=== PATIENT | female | born 1940 | race Caucasian/White ===

== ENCOUNTER → 2023-09-06 | Emergency (ER) | payer OTHER ==
[~2023-09-06] MED LIST: ACETAMINOPHEN 325 MG TABLET ONE; BUPIVACAINE 0.5% PF 10 ML VIAL ONE; IBUPROFEN 400 MG TAB ONE; LIDOCAINE 2% MPF 5 ML VIAL ONE
--- OUTSIDE RECORDS SUMMARY | 2023-09-06 19:06 | XMS REPORT | Continuity of Care Document ---
Author Name Unknown Address [address] [place] [address] [facility] Address [address] [place] [address] Care Team Providers Care Health And Safety Trainer Name Role Phone Evin Robison MD Primary Care Physician ELSY SINGLETARY Attending Clinician Unavailable ONEIDA CALI Attending Clinician Unavailable NATA LLOYD Attending Clinician Unav ailable EVIN ROBISON Attending Clinician Unavailable [email or web address] Attending Clinician Unavaila JANES Alvarez Attending Clinician Unavailable FLOOR, LAB HEM-ONC 2ND Attending Clinician Unava ilable MD TRUNG Attending Clinician Unavailab le INFUSION, TRACI Attending Clinician Unavailable LAB39 Attending Clinician Unavailable IVT, MC Attending Clinician Unavailable LE, LAWSON Attending Clinician Unavailable NICA RUIZ Attending Clinician Unavailable ANT VANG Attending Clinician Unavail able CHINA JONES Attending Clinician Unavailab GILDARDO Barker Attending Clinician Unavailab XAVIER Franz Attending Clinician Unavailable LAB90 Attending Clinician Unavailable 1, [facility] Attending Clinic chang Unavailable DEYVI COTE Attending Clinician Unavailable EMIL EASLEY Attending Clinician Unavailable JHONATHAN-JETT GUZMAN Attending Clinician Unavailable NICOLE ESCOBAR Attending Clinician UnavailCRISTOBAL Alvarez Attending Clinician Unavailabl e Only, Ang Db Test Attending Clinician UnavailSunil Ortiz Attending Clinician [phone] SUNIL CONWAY Attending Clinician Unavailable Doctor Unassigned, [place] Attending Clinician U pradeep Rocael VIGOUREUX PRINTER-C, Deyvi Attending Clinician [phone] Nan Hunter DPM Attending Clinician [phone] China Jones MD Attending Clinician [phone] COVID-MODERNA VACC, [facility] Attending Clinic chang Unavailable Evin Robison MD Attending Clinician [phone] LAB47 Attending Clinician Unavailable Michael Wren MD Attending Clinician [phone] ALFRED YUNG Attending Clinician Unavailable MARKO CASTILLO Attending Clinician Unavailable Dimple Harry PA-C Attending Clinician [phone] [id number] Attending Clinician Unavailable TESTING, PL COVID Attending Clinician Unavailabl e VF2 Attending Clinician Unavailable Elsy Singletary MD Attending Clinician [phone] COVID-MODERNA BOOSTER, [facility] Attending Clin ician Unavailable [email or web address] Admitting Clinician Unavaila ble Payers Payer Name Policy Type Policy Number Effective Date Expirati on Date Source [facility] 7 [id number] 2019 00:00:00 MARGO AMBRIZ [employer] - [place] [employer] (MEDICARE REPLACEMENT HMO) [id number] Problems Condition Name Condition Details Condition Category Status Onset Date Resolution Date Last Treatment Date Treating Clinician Comments Source Acute pain of left shoulder Acute pain of left shoulder Disease Active 2022-08 00:00: 00 Margo Royold - Externa l Left hip pain Left hip pain Disease Active 2022-08 00:00: 00 Margo Ambriz - Externa l Seasonal allergic rhinitis due to pollen Seasonal allergic rhinitis due to pollen Disease Active 2022-08 0-13 00:00: 00 Margo Ambriz - Externa l Polycythem ia Polycythem ia Disease Active 9-06 00:00: 00 Margo Ambriz - Externa l Well adult exam Well adult exam Disease Active 2023-0 8-24 00:00: 00 Margo Seybold - Externa l 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 Due to being on MTX; will monitor for infection s and update vaccinesL ast Assessmen t & Plan: Formattin g of this note might be different from the original. Unchanged Margo Seybold - Externa l Risk for falls Risk for falls Disease Active 03-07 00:00: 00 Margo Seybold - Externa l Polycythem ia Polycythem ia Disease Active 2018-08 00:00: 00 Margo Vasquezybold - Externa l Hx of squamous cell carcinoma Hx of squamous cell carcinoma Disease Active 09-29 00:00: 00 Overview: Formattin g of this note might be different from the original. R dorsal hand Margo Seybold - Externa l Sensory neuropathy Sensory neuropathy Disease Active 2015-08 0- 00:00: 00 Margo Royold Insomnia Insomnia Disease Active 05-04 00:00: 00 Margo Seybold - Externa l Chronic hyperventi lation syndrome Chronic hyperventi lation syndrome Disease Active 09-15 00:00: 00 Margo Royold Chronic rhinitis Chronic rhinitis Disease Active 05-04 00:00: 00 Margo Seybold - Externa l YVONNE (obstructi ve sleep apnea) - Very abn ON pulse Ox with desat index 40 O2 40% 02/24/14 YVONNE (obstructi ve sleep apnea) - Very abn ON pulse Ox with desat index 40 O2 40% 02/24/14 Disease Active 7 00:00: 00 Margo Seybold - Externa l Conjunctiv itis of both eyes Conjunctiv itis of both eyes Disease Active 1- 00:00: 00 Margo Royold Hx pulmonary embolism Hx pulmonary embolism Disease Active 03-27 00:00: 00 Margo Seybold - Externa l Pseudophak ia of both eyes Pseudophak ia of both eyes Disease Active 03-21 00:00: 00 Margo Ambriz - Externa l Thoracic back pain Thoracic back pain Disease Active 03-21 00:00: 00 Margo Ambriz Hx of squamous cell carcinoma Hx of squamous cell carcinoma Disease Active 09-29 00:00: 00 Overview: Formattin g of this note might be different from the original. R dorsal hand Margo Ambriz - Externa l Bursitis, trochanter ic Bursitis, trochanter ic Disease Active 2008-08 00:00: 00 Margo Ambriz Osteoarthr osis, unspecifie d whether generalize d or localized, unspecifie d site Osteoarthr osis, unspecifie d whether generalize d or localized, unspecifie d site Disease Active 08-31 00:00: 00 Overview: Formattin g of this note might be different from the original. ICD-10 Margo Royold - Externa l Hypothyroi dism Hypothyroi dism Disease Active 2007-08 00:00: 00 Overview: Formattin g of this note might be different from the original. On levothyro xine and annual monitorin gLast Assessmen t & Plan: Formattin g of this note might be different from the original. 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 On a ststin and low fat dietLast Assessmen t & Plan: Formattin g of this note might be different from the original. Controlle d Margo Royold - Externa l Essential hypertensi on, benign Essential hypertensi on, benign Disease Active 2007-08 00:00: 00 Overview: Formattin g of this note might be different from the original. Low salt diet and BBLast Assessmen t & Plan: Formattin g of this note might be different from the original. Controlle d Margo Vasquezybold - Externa l Positive PPD Positive PPD Disease Active Overview: Formattin g of this note might be different from the original. 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 [facility] Margo Marreora boni Prurigo nodularis Prurigo nodularis Disease Active Margo Royold - Externa l Allergies, Adverse Reactions, Alerts Allergy Name Allergy Type Status Severity Reaction(s) Onset Date Inactive Date Treating Clinician Comments Source NO KNOWN ALLERGIE S Drug Class Active [facility] Social History Social Habit Start Date Stop Date Quantity Comments Source Gender identity 2020-05-17 15:52:18 Identifies as female gender (finding) Margo Royold - External History SDOH Alcohol Frequency Margo peter - External History SDOH Alcohol Std Drinks Margo Vasquez ybold - External History SDOH Alcohol Binge Margo Ambriz - External Sexual orientation Estevan Royold - External Alcohol intake 2023-08-23 00:00:00 2023-08-23 00:00:00 2.86 /d Margo Ambriz - External History of Social function 2023-05-13 00:00:00 2023-05-13 00:00:00 Margo Ambriz - External Tobacco use and exposure 2023-04-18 00:00:00 2023-04-18 00:00:00 Smokeless tobacco non-user Margo Ambriz - External Cigarettes smoked current (pack per day) - Reported 2023-04-18 00:00:00 2023-04-18 00:00:00 Margo Pb - External Cigarette pack-years 2023-04-18 00:00:00 2023-04-18 00:00:00 Margo Ambriz - External Education - What is the highest level of school you have completed or the highest degree you have received? 2023-04-18 00:00:00 2023-04-18 00:00:00 Bachelor's degree (e.g., BA, AB, BS) Margo Pb - External Exposure to SARS-CoV-2 (event) 2022-04-30 00:00:00 2022-05-10 15:56:00 Not sure [facility] Alcohol Comment 2014-05-27 00:00:00 2014-05-27 00:00:00 Daily Margo Ambriz - External History of tobacco use 1975-08-26 00:00:00 Cigarette Smoker Margo Ambriz - External Sex Assigned At 1940 00:00:00 1940 00:00:00 [facility] Smoking Status Start Date Stop Date Source Tobacco smoking consumption unknown [facility] Never smoked tobacco Margo Akers Medications Ordered Medication Name Filled Medication Name Start Date Stop Date Current Medication? Ordering Clinician Indication Dosage Frequency Signature (SIG) Comments Components Source Tramadol HCl (ULTRAM) 50 MG oral Tablet 2022-08 00:00: 00 Yes [id number] 50mg QD Take 1 tablet (50 mg total) by mouth daily as needed for pain. Margo plata Diclofenac Sodium 75 MG oral Tablet Delayed Response 2022-08 00:00: 00 Yes [id number] 75mg Q.5D Take 1 tablet (75 mg total) by mouth 2 times daily as needed (pain). Margo plata Tizanidine HCl 2 MG oral Tablet 2022-08 00:00: 00 Yes [id number] 2mg QD Take 1 tablet (2 mg total) by mouth nightly as needed. Margo plata Diclofenac Sodium 75 MG oral Tablet Delayed Response 2022-08 00:00: 00 08-23 00:00 :00 No [id number] 75mg Q.5D Take 1 tablet (75 mg total) by mouth 2 times daily as needed (pain). Margo plata Lovastatin 40 MG oral Tablet 2022-08 00:00: 00 Yes [id number] 40mg Take 1 tablet (40 mg total) by mouth nightly. Margo plata Lovastatin 40 MG oral Tablet 2022-08 00:00: 00 Yes [id number] 40mg Take 1 tablet (40 mg total) by mouth nightly. Margo plata Aspirin 81 MG OR CHEW 2022-08 14:08: 17 Yes 81mg Take 1 tablet (81 mg total) by mouth daily. Margo plata Multiple Vitamins-Mi nerals (MULTIVITAM IN OR) 2022-08 14:08: 17 Yes 1{tbl} Take 1 tablet by mouth daily Margo plata Greenfield-3 Fatty Acids (FISH OIL OR) 2022-08 14:08: 17 Yes 1{capsu le} Take 1 capsule by mouth daily Margo Priest Externa l Polyvinyl Alcohol-Pov idone (REFRESH OP) 2022-08 14:08: 17 Yes 1 drop in each eye Margo Marreroa l Acetylcyste ine 600 MG oral Capsule 2022-08 14:08: 17 Yes 1{capsu le} 1 capsule. Margo Priest Externa l Aspirin (Aspirin 81) 81 MG oral Chewable Tablet 2022-08 14:08: 17 Yes Margo Ambriz - Externa l Greenfield-3 Fatty Acids (Fish Oil) 1000 MG oral Capsule 2022-08 14:08: 17 Yes Margo Priest Externa l Acetylcyste ine (NAC) 600 MG oral Capsule 2022-08 14:08: 17 Yes Margo Priest Externa l Vitamin E (Alves-E) combination Suppository 2022-08 14:08: 17 Yes See Admin Instructio ns. Margo Marreroa l Aspirin 81 MG OR CHEW 2022-08 14:08: 17 Yes 81mg Take 1 tablet (81 mg total) by mouth daily. Margo Priest Externa l Multiple Vitamins-Mi nerals (MULTIVITAM IN OR) 2022-08 14:08: 17 Yes 1{tbl} Take 1 tablet by mouth daily Margo Priest Externa l Greenfield-3 Fatty Acids (FISH OIL OR) 2022-08 14:08: 17 Yes 1{capsu le} Take 1 capsule by mouth daily Margo Priest Externa l Polyvinyl Alcohol-Pov idone (REFRESH OP) 2022-08 14:08: 17 Yes 1 drop in each eye Margo Marreroa l Acetylcyste ine 600 MG oral Capsule 2022-08 14:08: 17 Yes 1{capsu le} 1 capsule. Margo Priest Externa l Aspirin (Aspirin 81) 81 MG oral Chewable Tablet 2022-08 14:08: 17 Yes Margo Priest Externa l Greenfield-3 Fatty Acids (Fish Oil) 1000 MG oral Capsule 2022-08 14:08: 17 Yes Margo plata Acetylcyste ine (NAC) 600 MG oral Capsule 2022-08 14:08: 17 Yes Margo plata Vitamin E (Alves-E) combination Suppository 2022-08 14:08: 17 Yes See Admin Instructio ns. Margo plata Aspirin 81 MG OR CHEW 2022-08 14:08: 17 Yes 81mg Take 1 tablet (81 mg total) by mouth daily. Margo Ayoub boni Multiple Vitamins-Mi nerals (MULTIVITAM IN OR) 2022-08 14:08: 17 Yes 1{tbl} Take 1 tablet by mouth daily Margo Ayoub boni Greenfield-3 Fatty Acids (FISH OIL OR) 2022-08 14:08: 17 Yes 1{capsu le} Take 1 capsule by mouth daily Margo plata Polyvinyl Alcohol-Pov idone (REFRESH OP) 2022-08 14:08: 17 Yes 1 drop in each eye Margo plata Acetylcyste ine 600 MG oral Capsule 2022-08 14:08: 17 Yes 1{capsu le} 1 capsule. Margo plata Aspirin (Aspirin 81) 81 MG oral Chewable Tablet 2022-08 14:08: 17 Yes Margo plata Greenfield-3 Fatty Acids (Fish Oil) 1000 MG oral Capsule 2022-08 14:08: 17 Yes Margo plata Acetylcyste ine (NAC) 600 MG oral Capsule 2022-08 14:08: 17 Yes Margo plata Vitamin E (Alves-E) combination Suppository 2022-08 14:08: 17 Yes See Admin Instructio ns. Margo Ayoub l Aspirin 81 MG OR CHEW 2022-08 09:49: 55 Yes 81mg Take 1 tablet (81 mg total) by mouth daily. Margo Vasquezshadiamita Zayda Janesa l Multiple Vitamins-Mi nerals (MULTIVITAM IN OR) 2022-08 09:49: 55 Yes 1{tbl} Take 1 tablet by mouth daily Margo Pb Marreromary jane boni Greenfield-3 Fatty Acids (FISH OIL OR) 2022-08 09:49: 55 Yes 1{capsu le} Take 1 capsule by mouth daily Margo Pb plata Polyvinyl Alcohol-Pov idone (REFRESH OP) 2022-08 09:49: 55 Yes 1 drop in each eye Margo plata Acetylcyste ine 600 MG oral Capsule 2022-08 09:49: 55 Yes 1{capsu le} 1 capsule. Margo Pb plata Aspirin (Aspirin 81) 81 MG oral Chewable Tablet 2022-08 09:49: 55 Yes Margo Pb plata Greenfield-3 Fatty Acids (Fish Oil) 1000 MG oral Capsule 2022-08 09:49: 55 Yes Margo plata Acetylcyste ine (NAC) 600 MG oral Capsule 2022-08 09:49: 55 Yes Margo plata Vitamin E (Alves-E) combination Suppository 2022-08 09:49: 55 Yes See Admin Instructio ns. Margo plata Montelukast (SINGULAIR) 10 MG oral Tablet tablet 2022-08 00:00: 00 Yes [id number] TAKE 1 TABLET BY MOUTH EVERY DAY AT 5 PM Margo plata Montelukast (SINGULAIR) 10 MG oral Tablet tablet 2022-08 00:00: 00 Yes [id number] TAKE 1 TABLET BY MOUTH EVERY DAY AT 5 PM Margo Marreromary jane l Montelukast (SINGULAIR) 10 MG oral Tablet tablet 2022-08 00:00: 00 Yes [id number] TAKE 1 TABLET BY MOUTH EVERY DAY AT 5 PM Margo Ayoub l Montelukast (SINGULAIR) 10 MG oral Tablet tablet 2022-08 00:00: 00 Yes [id number] TAKE 1 TABLET BY MOUTH EVERY DAY AT 5 PM Margo plata Polyvinyl Alcohol-Pov idone (REFRESH OP) 05-10 09:14: 29 Yes 1 drop in each eye Margo Ayoub l Greenfield-3 Fatty Acids (Fish Oil) 1000 MG oral Capsule 05-10 09:14: 29 Yes Margo Marreroa l Vitamin E (Alves-E) combination Suppository 05-10 09:14: 29 Yes See Admin Instructio ns. Margo plata Polyvinyl Alcohol-Pov idone (REFRESH OP) 05-10 09:14: 29 Yes 1 drop in each eye Margo Ayoub l Greenfield-3 Fatty Acids (Fish Oil) 1000 MG oral Capsule 05-10 09:14: 29 Yes Margo Ayoub l Vitamin E (Alves-E) combination Suppository 05-10 09:14: 29 Yes See Admin Instructio ns. Margo Marreroa l Aspirin 81 MG OR CHEW 05-10 09:14: 28 Yes 81mg Take 1 tablet (81 mg total) by mouth daily. Margo Ayoub l Multiple Vitamins-Mi nerals (MULTIVITAM IN OR) 05-10 09:14: 28 Yes 1{tbl} Take 1 tablet by mouth daily Margo Ayoub l Greenfield-3 Fatty Acids (FISH OIL OR) 05-10 09:14: 28 Yes 1{capsu le} Take 1 capsule by mouth daily Margo Marreroa l Acetylcyste ine 600 MG oral Capsule 05-10 09:14: 28 Yes 1{capsu le} 1 capsule. Margo Marreroa l Aspirin (Aspirin 81) 81 MG oral Chewable Tablet 05-10 09:14: 28 Yes Margo Ayoub l Acetylcyste ine (NAC) 600 MG oral Capsule 05-10 09:14: 28 Yes Margo Ambriz - Externa l Aspirin 81 MG OR CHEW 05-10 09:14: 28 Yes 81mg Take 1 tablet (81 mg total) by mouth daily. Margo Priest Externa l Multiple Vitamins-Mi nerals (MULTIVITAM IN OR) 05-10 09:14: 28 Yes 1{tbl} Take 1 tablet by mouth daily Margo plata Greenfield-3 Fatty Acids (FISH OIL OR) 05-10 09:14: 28 Yes 1{capsu le} Take 1 capsule by mouth daily Margo plata Acetylcyste ine 600 MG oral Capsule 05-10 09:14: 28 Yes 1{capsu le} 1 capsule. Margo plata Aspirin (Aspirin 81) 81 MG oral Chewable Tablet 05-10 09:14: 28 Yes Margo plata Acetylcyste ine (NAC) 600 MG oral Capsule 05-10 09:14: 28 Yes Margo plata Aspirin 81 MG OR CHEW 05-06 14:34: 39 Yes 81mg Take 1 tablet (81 mg total) by mouth daily. Margo plata Multiple Vitamins-Mi nerals (MULTIVITAM IN OR) 05-06 14:34: 39 Yes 1{tbl} Take 1 tablet by mouth daily Margo plata Greenfield-3 Fatty Acids (FISH OIL OR) 05-06 14:34: 39 Yes 1{capsu le} Take 1 capsule by mouth daily Margo plata Polyvinyl Alcohol-Pov idone (REFRESH OP) 05-06 14:34: 39 Yes 1 drop in each eye Margo plata Calcipotrie ne 0.005 % apply externally Cream 05-06 00:00: 00 Yes [id number] Apply sparingly BID to rash Sat/Sun prn.. Margo plata Hydrocortis one 2.5 % apply externally Ointment 05-06 00:00: 00 Yes [id number] Apply BID sparingly to rash/itchy areas face/folds Mon-sat PRN.. Margo plata Clobetasol Propionate 0.05 % apply externally Ointment 05-06 00:00: 00 Yes [id number] Apply sparingly BID to rash of body Mon-Sat PRN. Not for use on face/folds .. Margo Vasquezshadiold - Externa l Calcipotrie ne 0.005 % apply externally Cream 05-06 00:00: 00 Yes [id number] Apply sparingly BID to rash Sat/Sun prn.. Margo Seybold - Externa l Hydrocortis one 2.5 % apply externally Ointment 05-06 00:00: 00 Yes [id number] Apply BID sparingly to rash/itchy areas face/folds Mon-fri PRN.. Margo Royamita - Externa l Clobetasol Propionate 0.05 % apply externally Ointment 05-06 00:00: 00 Yes [id number] Apply sparingly BID to rash of body Mon-Fri PRN. Not for use on face/folds .. Margo Seshadiamita - Externa l Calcipotrie ne 0.005 % apply externally Cream 05-06 00:00: 00 Yes [id number] Apply sparingly BID to rash Sat/Sun prn.. Margo Kirillold - Externa l Hydrocortis one 2.5 % apply externally Ointment 05-06 00:00: 00 Yes [id number] Apply BID sparingly to rash/itchy areas face/folds Mon-fri PRN.. Margo Royamita - Externa l Clobetasol Propionate 0.05 % apply externally Ointment 05-06 00:00: 00 Yes [id number] Apply sparingly BID to rash of body Mon-Sat PRN. Not for use on face/folds .. Margo Royamita - Externa l Calcipotrie ne 0.005 % apply externally Cream 05-06 00:00: 00 Yes [id number] Apply sparingly BID to rash Sat/Sun prn.. Margo Seybold - Externa l Hydrocortis one 2.5 % apply externally Ointment 05-06 00:00: 00 Yes [id number] Apply BID sparingly to rash/itchy areas face/folds Mon-fri PRN.. Margo Seybold - Externa l Clobetasol Propionate 0.05 % apply externally Ointment 05-06 00:00: 00 Yes [id number] Apply sparingly BID to rash of body Mon-Fri PRN. Not for use on face/folds .. Margo Vasquezshadiold - Externa l Calcipotrie ne 0.005 % apply externally Cream 05-06 00:00: 00 Yes [id number] Apply sparingly BID to rash Sat/Sun prn.. Margo Vasquezshadiold - Externa l Hydrocortis one 2.5 % apply externally Ointment 05-06 00:00: 00 Yes [id number] Apply BID sparingly to rash/itchy areas face/folds Mon-fri PRN.. Margo Vasquezybold - Externa l Clobetasol Propionate 0.05 % apply externally Ointment 05-06 00:00: 00 Yes [id number] Apply sparingly BID to rash of body Mon-Fri PRN. Not for use on face/folds .. Margo Vasquezshadiamita - Externa l Calcipotrie ne 0.005 % apply externally Cream 05-06 00:00: 00 Yes [id number] Apply sparingly BID to rash Sat/Sun prn.. Margo Seshadiamita - Externa l Hydrocortis one 2.5 % apply externally Ointment 05-06 00:00: 00 Yes [id number] Apply BID sparingly to rash/itchy areas face/folds Mon-fri PRN.. Margo Kirillamita - Externa l Clobetasol Propionate 0.05 % apply externally Ointment 05-06 00:00: 00 Yes [id number] Apply sparingly BID to rash of body Mon-Fri PRN. Not for use on face/folds .. Margo shadiamita - Externa l Calcipotrie ne 0.005 % apply externally Cream 0 05-06 00:00: 00 Yes [id number] Apply sparingly BID to rash Sat/Sun prn.. Margo Seybold - Externa l Hydrocortis one 2.5 % apply externally Ointment 0 05-06 00:00: 00 Yes [id number] Apply BID sparingly to rash/itchy areas face/folds Mon-fri PRN.. Margo Vasquezybold - Externa l Clobetasol Propionate 0.05 % apply externally Ointment 05-06 00:00: 00 Yes [id number] Apply sparingly BID to rash of body Mon-Sat PRN. Not for use on face/folds .. Margo plata Clobetasol Propionate 0.05 % apply externally Solution 05-06 00:00: 00 05-06 00:00 :00 No [id number] Apply BID to scaly areas of scalp Mon-Sat PRN.. Margo plata Levothyroxi ne Sodium 112 MCG oral Tablet 04-23 00:00: 00 Yes [id number] TAKE 1 TABLET(112 MCG) BY MOUTH DAILY Margo plata Levothyroxi ne Sodium 112 MCG oral Tablet 04-23 00:00: 00 Yes [id number] TAKE 1 TABLET(112 MCG) BY MOUTH DAILY Margo plata Levothyroxi ne Sodium 112 MCG oral Tablet 04-23 00:00: 00 Yes [id number] TAKE 1 TABLET(112 MCG) BY MOUTH DAILY Margo plata Levothyroxi ne Sodium 112 MCG oral Tablet 04-23 00:00: 00 Yes [id number] TAKE 1 TABLET(112 MCG) BY MOUTH DAILY Margo plata Levothyroxi ne Sodium 112 MCG oral Tablet 04-23 00:00: 00 Yes [id number] TAKE 1 TABLET(112 MCG) BY MOUTH DAILY Margo plata Levothyroxi ne Sodium 112 MCG oral Tablet 0 04-23 00:00: 00 Yes [id number] TAKE 1 TABLET(112 MCG) BY MOUTH DAILY Margo plata Levothyroxi ne Sodium 112 MCG oral Tablet 04-23 00:00: 00 Yes [id number] TAKE 1 TABLET(112 MCG) BY MOUTH DAILY Margo plata Levothyroxi ne Sodium 112 MCG oral Tablet 04-23 00:00: 00 Yes [id number] TAKE 1 TABLET(112 MCG) BY MOUTH DAILY Margo plata ESTRADIOL VAGINAL 0.1 MG/GM vaginal Cream 04-19 00:00: [id number] 1 g vaginally three times a week. Margo Seybold - Externa l ESTRADIOL VAGINAL 0.1 MG/GM vaginal Cream 04-19 00:00: [id number] 1 g vaginally three times a week. Margo Royold - Externa l ESTRADIOL VAGINAL 0.1 MG/GM vaginal Cream 04-19 00:00: [id number] 1 g vaginally three times a week. Margo Ambriz - Externa l ESTRADIOL VAGINAL 0.1 MG/GM vaginal Cream 04-19 00:00: [id number] 1 g vaginally three times a week. Margo Royold - Externa l ESTRADIOL VAGINAL 0.1 MG/GM vaginal Cream 04-19 00:00: [id number] 1 g vaginally three times a week. Margo Ambriz - Externa l ESTRADIOL VAGINAL 0.1 MG/GM vaginal Cream 04-19 00:00: [id number] 1 g vaginally three times a week. Margo Ambriz - Externa l ESTRADIOL VAGINAL 0.1 MG/GM vaginal Cream 04-19 00:00: [id number] 1 g vaginally three times a week. Margo Ambriz - Externa l ESTRADIOL VAGINAL 0.1 MG/GM vaginal Cream 04-19 00:00: [id number] 1 g vaginally three times a week. Margo Ambriz - Externa l ESTRADIOL VAGINAL 0.1 MG/GM vaginal Cream 04-19 00:00: [id number] 1 g vaginally three times a week. Margo Priest Externa boni Aspirin 81 MG OR CHEW 04-18 09:17: 02 Yes 81mg Take 1 tablet (81 mg total) by mouth daily. Margo Priest Externa boni Multiple Vitamins-Mi nerals (MULTIVITAM IN OR) 04-18 09:17: 02 Yes 1{tbl} Take 1 tablet by mouth daily Margo Marreroa boni Greenfield-3 Fatty Acids (FISH OIL OR) 04-18 09:17: 02 Yes 1{capsu le} Take 1 capsule by mouth daily Margo plata Aspirin 81 MG OR CHEW 04-18 09:17: 02 Yes 81mg Take 1 tablet (81 mg total) by mouth daily. Margo plata Multiple Vitamins-Mi nerals (MULTIVITAM IN OR) 04-18 09:17: 02 Yes 1{tbl} Take 1 tablet by mouth daily Margo plata Greenfield-3 Fatty Acids (FISH OIL OR) 04-18 09:17: 02 Yes 1{capsu le} Take 1 capsule by mouth daily Margo plata Ciclopirox 8 % apply externally Solution 04-18 00:00: 00 Yes [id number] Apply qday to affected nails. Margo plata NIFEdipine CR Osmotic 60 MG oral TABLET SR 24 HR 04-18 00:00: 00 Yes [id number] 60mg Take 1 tablet (60 mg total) by mouth daily. Margo plata Metoprolol Tartrate (LOPRESSOR) 25 MG oral Tablet 04-18 00:00: 00 Yes [id number] 25mg Take 1 tablet (25 mg total) by mouth 2 times daily. Margo plata Ciclopirox 8 % apply externally Solution 04-18 00:00: 00 Yes [id number] Apply qday to affected nails. Margo plata NIFEdipine CR Osmotic 60 MG oral TABLET SR 24 HR 04-18 00:00: 00 Yes [id number] 60mg Take 1 tablet (60 mg total) by mouth daily. Margo plata Metoprolol Tartrate (LOPRESSOR) 25 MG oral Tablet 04-18 00:00: 00 Yes [id number] 25mg Take 1 tablet (25 mg total) by mouth 2 times daily. Margo plata Ciclopirox 8 % apply externally Solution 04-18 00:00: 00 Yes [id number] Apply qday to affected nails. Margo plata NIFEdipine CR Osmotic 60 MG oral TABLET SR 24 HR 04-18 00:00: 00 Yes [id number] 60mg Take 1 tablet (60 mg total) by mouth daily. Margo plata Metoprolol Tartrate (LOPRESSOR) 25 MG oral Tablet 04-18 00:00: 00 Yes [id number] 25mg Take 1 tablet (25 mg total) by mouth 2 times daily. Margo plata Ciclopirox 8 % apply externally Solution 04-18 00:00: 00 Yes [id number] Apply qday to affected nails. Margo plata NIFEdipine CR Osmotic 60 MG oral TABLET SR 24 HR 04-18 00:00: 00 Yes [id number] 60mg Take 1 tablet (60 mg total) by mouth daily. Margo plata Metoprolol Tartrate (LOPRESSOR) 25 MG oral Tablet 04-18 00:00: 00 Yes [id number] 25mg Take 1 tablet (25 mg total) by mouth 2 times daily. Margo plata Ciclopirox 8 % apply externally Solution 04-18 00:00: 00 Yes [id number] Apply qday to affected nails. Margo plata NIFEdipine CR Osmotic 60 MG oral TABLET SR 24 HR 04-18 00:00: 00 Yes [id number] 60mg Take 1 tablet (60 mg total) by mouth daily. Margo plata Metoprolol Tartrate (LOPRESSOR) 25 MG oral Tablet 04-18 00:00: 00 Yes [id number] 25mg Take 1 tablet (25 mg total) by mouth 2 times daily. Margo plata Ciclopirox 8 % apply externally Solution 04-18 00:00: 00 Yes [id number] Apply qday to affected nails. Margo plata NIFEdipine CR Osmotic 60 MG oral TABLET SR 24 HR 04-18 00:00: 00 Yes [id number] 60mg Take 1 tablet (60 mg total) by mouth daily. Margo plata Metoprolol Tartrate (LOPRESSOR) 25 MG oral Tablet 8 00:00: 00 Yes [id number] 25mg Take 1 tablet (25 mg total) by mouth 2 times daily. Margo plata Ciclopirox 8 % apply externally Solution 8 00:00: 00 Yes [id number] Apply qday to affected nails. Margo plata NIFEdipine CR Osmotic 60 MG oral TABLET SR 24 HR 824 00:00: 00 Yes [id number] 60mg Take 1 tablet (60 mg total) by mouth daily. Margo plata Metoprolol Tartrate (LOPRESSOR) 25 MG oral Tablet 824 00:00: 00 Yes [id number] 25mg Take 1 tablet (25 mg total) by mouth 2 times daily. Margo plata Ciclopirox 8 % apply externally Solution 04-18 00:00: 00 Yes [id number] Apply qday to affected nails. Margo plata NIFEdipine CR Osmotic 60 MG oral TABLET SR 24 HR 8 00:00: 00 Yes [id number] 60mg Take 1 tablet (60 mg total) by mouth daily. Margo plata Metoprolol Tartrate (LOPRESSOR) 25 MG oral Tablet 04-18 00:00: 00 Yes [id number] 25mg Take 1 tablet (25 mg total) by mouth 2 times daily. Margo plata Ciclopirox 8 % apply externally Solution 04-18 00:00: 00 Yes [id number] Apply qday to affected nails. Margo plata NIFEdipine CR Osmotic 60 MG oral TABLET SR 24 HR 824 00:00: 00 Yes [id number] 60mg Take 1 tablet (60 mg total) by mouth daily. Margo plata Metoprolol Tartrate (LOPRESSOR) 25 MG oral Tablet 824 00:00: 00 Yes [id number] 25mg Take 1 tablet (25 mg total) by mouth 2 times daily. Margo plata NIFEdipine CR Osmotic 60 MG oral TABLET SR 24 HR 7-20 00:00: 00 24 00:00 :00 No [id number] 60mg Take 1 tablet (60 mg total) by mouth daily Margo Seybold - Externa l ESTRADIOL VAGINAL 0.1 MG/GM vaginal Cream 01-25 00:00: 00 04-18 00:00 :00 No 0.5gm as directed Margo Ambriz - Externa boni Aspirin 81 MG OR CHEW 01-15 10:03: 47 Yes 81mg Take 1 tablet (81 mg total) by mouth daily Margo Ambriz - Externa l Multiple Vitamins-Mi nerals (MULTIVITAM IN OR) 01-15 10:03: 47 Yes 1{tbl} Take 1 tablet by mouth daily Margo Royold - Externa l [place]-3 Fatty Acids (FISH OIL OR) 01-15 10:03: 47 Yes 1{capsu le} Take 1 capsule by mouth daily Margo Priest Externa l Polyvinyl Alcohol-Pov idone (REFRESH OP) 01-15 10:03: 47 Yes 1 drop in each eye Margo Priest Externa l Polyvinyl Alcohol-Pov idone (REFRESH OP) 01-15 10:03: 47 Yes 1 drop in each eye Margo Royold - Externa l Polyvinyl Alcohol-Pov idone (REFRESH OP) 01-15 10:03: 47 Yes 1 drop in each eye Margo Ambriz - Externa l Triamterene -HCTZ 37.5-25 MG oral Tablet 01-01 00:00: 00 Yes [id number] 1{tbl} QD TAKE 1 TABLET BY MOUTH DAILY NEEDED Margo Priest Externa l Triamterene -HCTZ 37.5-25 MG oral Tablet 01-01 00:00: 00 Yes [id number] 1{tbl} QD TAKE 1 TABLET BY MOUTH DAILY NEEDED Margo Royold - Externa l Triamterene -HCTZ 37.5-25 MG oral Tablet 01-01 00:00: 00 Yes [id number] 1{tbl} QD TAKE 1 TABLET BY MOUTH DAILY NEEDED Margo Ambriz - Externa l Triamterene -HCTZ 37.5-25 MG oral Tablet 01-01 00:00: 00 Yes [id number] 1{tbl} QD TAKE 1 TABLET BY MOUTH DAILY NEEDED Margo Vasquezybold - Externa l Triamterene -HCTZ 37.5-25 MG oral Tablet 0 - 00:00: 00 Yes [id number] 1{tbl} QD TAKE 1 TABLET BY MOUTH DAILY NEEDED Margo Royold - Externa l Triamterene -HCTZ 37.5-25 MG oral Tablet 0 -09 00:00: 00 Yes [id number] 1{tbl} QD TAKE 1 TABLET BY MOUTH DAILY NEEDED Margo Pb - Externa l Triamterene -HCTZ 37.5-25 MG oral Tablet 0 01-01 00:00: 00 Yes [id number] 1{tbl} QD TAKE 1 TABLET BY MOUTH DAILY NEEDED Margo Royold - Externa l Triamterene -HCTZ 37.5-25 MG oral Tablet 0 01-01 00:00: 00 Yes [id number] 1{tbl} QD TAKE 1 TABLET BY MOUTH DAILY NEEDED Margo Ambriz - Externa l Triamterene -HCTZ 37.5-25 MG oral Tablet 0 01-01 00:00: 00 Yes [id number] 1{tbl} QD TAKE 1 TABLET BY MOUTH DAILY NEEDED Margo Royold - Externa l Triamterene -HCTZ 37.5-25 MG oral Tablet 0 01-01 00:00: 00 Yes [id number] 1{tbl} QD TAKE 1 TABLET BY MOUTH DAILY NEEDED Margo Ambriz - Externa l FLUTICASONE PROPIONATE, NASAL, 50 MCG/ACT nasal Suspension 2022-0 24 00:00: 00 Yes [id number] USE 2 SPRAYS IN EACH NOSTRIL EVERY DAY. SHAKE WELL Margo Ambriz - Externa boni FLUTICASONE PROPIONATE, NASAL, 50 MCG/ACT nasal Suspension 2022-0 -24 00:00: 00 Yes [id number] USE 2 SPRAYS IN EACH NOSTRIL EVERY DAY. SHAKE WELL Margo Vasquezybold - Externa l FLUTICASONE PROPIONATE, NASAL, 50 MCG/ACT nasal Suspension 2022-0 -24 00:00: 00 Yes [id number] USE 2 SPRAYS IN EACH NOSTRIL EVERY DAY. SHAKE WELL Margo Seybold - Externa l FLUTICASONE PROPIONATE, NASAL, 50 MCG/ACT nasal Suspension 24 00:00: 00 Yes [id number] USE 2 SPRAYS IN EACH NOSTRIL EVERY DAY. [facility] Margo Pb - Externa boni FLUTICASONE PROPIONATE, NASAL, 50 MCG/ACT nasal Suspension 24 00:00: 00 Yes [id number] USE 2 SPRAYS IN EACH NOSTRIL EVERY DAY. [facility] Margo Kirillamita - Externa l FLUTICASONE PROPIONATE, NASAL, 50 MCG/ACT nasal Suspension 24 00:00: 00 Yes [id number] USE 2 SPRAYS IN EACH NOSTRIL EVERY DAY. [facility] Margo Kirillold - Externa boni FLUTICASONE PROPIONATE, NASAL, 50 MCG/ACT nasal Suspension 24 00:00: 00 Yes [id number] USE 2 SPRAYS IN EACH NOSTRIL EVERY DAY. [facility] Margo Kirillold - Externa boni FLUTICASONE PROPIONATE, NASAL, 50 MCG/ACT nasal Suspension 12-17 00:00: 00 Yes [id number] USE 2 SPRAYS IN EACH NOSTRIL EVERY DAY. [facility] Margo Kirillold - Externa l FLUTICASONE PROPIONATE, NASAL, 50 MCG/ACT nasal Suspension 12-17 00:00: 00 Yes [id number] USE 2 SPRAYS IN EACH NOSTRIL EVERY DAY. [facility] Margo Kirillold - Externa boni FLUTICASONE PROPIONATE, NASAL, 50 MCG/ACT nasal Suspension 12-17 00:00: 00 Yes [id number] USE 2 SPRAYS IN EACH NOSTRIL EVERY DAY. [facility] Margo Ambriz - Externa boni Triamcinolo ne Acetonide 0.5 % apply externally Ointment 11-26 00:00: 00 Yes every 12 hours. Margo Royold - Externa l Triamcinolo ne Acetonide 0.5 % apply externally Ointment 11-26 00:00: 00 Yes every 12 hours. Margo Royold - Externa l Triamcinolo ne Acetonide 0.5 % apply externally Ointment 11-26 00:00: 00 05-06 00:00 :00 No every 12 hours. Margo Ambriz - Externa l Aspirin 81 MG OR CHEW 10-04 16:07: 33 Yes 81mg Take 81 mg by mouth daily Margo Ambriz - Externa l Multiple Vitamins-Mi nerals (MULTIVITAM IN OR) 10-04 16:07: 33 Yes 1{tbl} Take 1 tablet by mouth daily Margo Ambriz - Externa l [place]-3 Fatty Acids (FISH OIL OR) 10-04 16:07: 33 Yes 1{capsu le} Take 1 capsule by mouth daily Margo Ambriz - Externa l Polyvinyl Alcohol-Pov idone (REFRESH OP) 10-04 16:07: 33 Yes 1 drop in each eye Margo Priest Externa l Aspirin 81 MG OR CHEW 10-02 14:01: 28 Yes 81mg Take 81 mg by mouth daily Margo Ambriz - Externa l Multiple Vitamins-Mi nerals (MULTIVITAM IN OR) 10-02 14:01: 28 Yes 1{tbl} Take 1 tablet by mouth daily Margo Priest Externa l [place]-3 Fatty Acids (FISH OIL OR) 10-02 14:01: 28 Yes 1{capsu le} Take 1 capsule by mouth daily Margo Priest Externa l Polyvinyl Alcohol-Pov idone (REFRESH OP) 10-02 14:01: 28 Yes 1 drop in each eye Margo Priest Externa l Mupirocin (BACTROBAN) 2 % apply externally Ointment 10-02 00:00: 00 Yes [id number] Apply BID to wound with dressing (band-aid) until completely healed. Margo Vasquezybold - Externa l Mupirocin (BACTROBAN) 2 % apply externally Ointment 10-02 00:00: 00 Yes [id number] Apply BID to wound with dressing (band-aid) until completely healed. Margo Vasquezybold - Externa l Mupirocin (BACTROBAN) 2 % apply externally Ointment 10-02 00:00: 00 Yes [id number] Apply BID to wound with dressing (band-aid) until completely healed. Margo plata Mupirocin (BACTROBAN) 2 % apply externally Ointment 2-07 00:00: 00 04-18 00:00 :00 No [id number] Apply BID to wound with dressing (band-aid) until completely healed. Margo plata Montelukast (SINGULAIR) 10 MG oral Tablet tablet 09-05 00:00: 00 Yes [id number] TAKE 1 TABLET BY MOUTH EVERY DAY AT 5 PM Margo plata Montelukast (SINGULAIR) 10 MG oral Tablet tablet 09-05 00:00: 00 Yes [id number] TAKE 1 TABLET BY MOUTH EVERY DAY AT 5 PM Margo plata Montelukast (SINGULAIR) 10 MG oral Tablet tablet 09-05 00:00: 00 Yes [id number] TAKE 1 TABLET BY MOUTH EVERY DAY AT 5 PM Margo plata Montelukast (SINGULAIR) 10 MG oral Tablet tablet 09-05 00:00: 00 Yes [id number] TAKE 1 TABLET BY MOUTH EVERY DAY AT 5 PM Margo plata Montelukast (SINGULAIR) 10 MG oral Tablet tablet 09-05 00:00: 00 Yes [id number] TAKE 1 TABLET BY MOUTH EVERY DAY AT 5 PM Margo plata Montelukast (SINGULAIR) 10 MG oral Tablet tablet 09-05 00:00: 00 Yes [id number] TAKE 1 TABLET BY MOUTH EVERY DAY AT 5 PM Margo plata Montelukast (SINGULAIR) 10 MG oral Tablet tablet 09-05 00:00: 00 Yes [id number] TAKE 1 TABLET BY MOUTH EVERY DAY AT 5 PM Margo plata Montelukast (SINGULAIR) 10 MG oral Tablet tablet 09-05 00:00: 00 Yes [id number] TAKE 1 TABLET BY MOUTH EVERY DAY AT 5 PM Margo plata Triamterene -HCTZ 37.5-25 MG oral Tablet 08-28 00:00: 00 Yes [id number] 1{tbl} QD TAKE 1 TABLET BY MOUTH DAILY NEEDED Margo plata Triamterene -HCTZ 37.5-25 MG oral Tablet 08-28 00:00: 00 Yes [id number] 1{tbl} QD TAKE 1 TABLET BY MOUTH DAILY NEEDED Margo plata Metoprolol Tartrate 25 MG oral Tablet 2021-08 00:00: 00 Yes [id number] TAKE 1 TABLET(25 MG) BY MOUTH TWICE DAILY Margo plata Metoprolol Tartrate 25 MG oral Tablet 2021-08 00:00: 00 Yes [id number] TAKE 1 TABLET(25 MG) BY MOUTH TWICE DAILY Margo plata Metoprolol Tartrate 25 MG oral Tablet 2021-08 00:00: 00 Yes [id number] TAKE 1 TABLET(25 MG) BY MOUTH TWICE DAILY Margo plata Metoprolol Tartrate 25 MG oral Tablet 2021-08 00:00: 00 04-18 00:00 :00 No [id number] TAKE 1 TABLET(25 MG) BY MOUTH TWICE DAILY Margo plata Aspirin 81 MG OR CHEW 2021-08 10:27: 37 Yes 81mg Take 81 mg by mouth daily Margo plata Multiple Vitamins-Mi nerals (MULTIVITAM IN OR) 2021-08 10:27: 37 Yes 1{tbl} Take 1 tablet by mouth daily Margo plata Greenfield-3 Fatty Acids (FISH OIL OR) 2021-08 10:27: 37 Yes 1{capsu le} Take 1 capsule by mouth daily Margo plata Polyvinyl Alcohol-Pov idone (REFRESH OP) 2021-08 10:27: 37 Yes 1 drop in each eye Margo plata Zioptan 0.0015 % ophthalmic Solution 2021-08 00:00: 00 Yes INSTILL ONE (1) DROP(S) IN EACH EYE EVERY NIGHT. Margo Seybold - Externa l Zioptan 0.0015 % ophthalmic Solution 2021-08 2- 00:00: 00 Yes INSTILL ONE (1) DROP(S) IN EACH EYE EVERY NIGHT. Margo Seybold - Externa l Zioptan 0.0015 % ophthalmic Solution 2021-08 2- 00:00: 00 Yes INSTILL ONE (1) DROP(S) IN EACH EYE EVERY NIGHT. Margo Seybold - Externa l Zioptan 0.0015 % ophthalmic Solution 2021-08 2- 00:00: 00 Yes INSTILL ONE (1) DROP(S) IN EACH EYE EVERY NIGHT. Margo Seybold - Externa l Zioptan 0.0015 % ophthalmic Solution 2021-08 2- 00:00: 00 Yes INSTILL ONE (1) DROP(S) IN EACH EYE EVERY NIGHT. Margo Seybold - Externa l Zioptan 0.0015 % ophthalmic Solution 2021-08 2- 00:00: 00 Yes INSTILL ONE (1) DROP(S) IN EACH EYE EVERY NIGHT. Margo Seybold - Externa l Zioptan 0.0015 % ophthalmic Solution 2021-08 2- 00:00: 00 Yes INSTILL ONE (1) DROP(S) IN EACH EYE EVERY NIGHT. Margo Seybold - Externa l Zioptan 0.0015 % ophthalmic Solution 2021-08 2- 00:00: 00 Yes INSTILL ONE (1) DROP(S) IN EACH EYE EVERY NIGHT. Margo Seybold - Externa l Zioptan 0.0015 % ophthalmic Solution 2021-08 2- 00:00: 00 Yes INSTILL ONE (1) DROP(S) IN EACH EYE EVERY NIGHT. Margo Seybold - Externa l Zioptan 0.0015 % ophthalmic Solution 2021-08 2- 00:00: 00 Yes INSTILL ONE (1) DROP(S) IN EACH EYE EVERY NIGHT. Margo Seybold - Externa l Zioptan 0.0015 % ophthalmic Solution 2021-08 2- 00:00: 00 Yes INSTILL ONE (1) DROP(S) IN EACH EYE EVERY NIGHT. Margo Seybold - Externa l Zioptan 0.0015 % ophthalmic Solution 2021-08 2- 00:00: 00 Yes INSTILL ONE (1) DROP(S) IN EACH EYE EVERY NIGHT. aMrgo plata Zioptan 0.0015 % ophthalmic Solution 2021-08 2 00:00: 00 Yes INSTILL ONE (1) DROP(S) IN EACH EYE EVERY NIGHT. Margo plata Aspirin 81 MG OR CHEW 2021-08 10:44: 39 Yes 81mg Take 81 mg by mouth daily Margo plata Multiple Vitamins-Mi nerals (MULTIVITAM IN OR) 2021-08 10:44: 39 Yes 1{tbl} Take 1 tablet by mouth daily Margo plata [place]field-3 Fatty Acids (FISH OIL OR) 2021-08 10:44: 39 Yes 1{capsu le} Take 1 capsule by mouth daily Margo plata Polyvinyl Alcohol-Pov idone (REFRESH OP) 2021-08 10:44: 39 Yes 1 drop in each eye Margo plata Lovastatin 40 MG oral Tablet 2021-08 00:00: 00 Yes [id number] TAKE 1 TABLET(40 MG) BY MOUTH EVERY NIGHT Margo plata Lovastatin 40 MG oral Tablet 2021-08 00:00: 00 Yes [id number] TAKE 1 TABLET(40 MG) BY MOUTH EVERY NIGHT Margo plata Lovastatin 40 MG oral Tablet 2021-08 0 00:00: 00 Yes [id number] TAKE 1 TABLET(40 MG) BY MOUTH EVERY NIGHT Margo Ayoub l Lovastatin 40 MG oral Tablet 2021-08 0 00:00: 00 Yes [id number] TAKE 1 TABLET(40 MG) BY MOUTH EVERY NIGHT Margo plata Lovastatin 40 MG oral Tablet 2021-08 0 00:00: 00 Yes [id number] TAKE 1 TABLET(40 MG) BY MOUTH EVERY NIGHT Margo plata Lovastatin 40 MG oral Tablet 2021-08 0 00:00: 00 Yes [id number] TAKE 1 TABLET(40 MG) BY MOUTH EVERY NIGHT Margo Ayoub l Lovastatin 40 MG oral Tablet 2021-08 00:00: 00 Yes [id number] TAKE 1 TABLET(40 MG) BY MOUTH EVERY NIGHT Margo plata Lovastatin 40 MG oral Tablet 2021-08 00:00: 00 Yes [id number] TAKE 1 TABLET(40 MG) BY MOUTH EVERY NIGHT Margo plata Lovastatin 40 MG oral Tablet 2021-08 00:00: 00 Yes [id number] TAKE 1 TABLET(40 MG) BY MOUTH EVERY NIGHT Margo plata Lovastatin 40 MG oral Tablet 2021-08 00:00: 00 Yes [id number] TAKE 1 TABLET(40 MG) BY MOUTH EVERY NIGHT Margo plata Lovastatin 40 MG oral Tablet 2021-08 00:00: 00 Yes [id number] TAKE 1 TABLET(40 MG) BY MOUTH EVERY NIGHT Margo plata Lovastatin 40 MG oral Tablet 2021-08 00:00: 00 Yes [id number] TAKE 1 TABLET(40 MG) BY MOUTH EVERY NIGHT Margo plata Amoxicillin -Pot Clavulanate 875-125 MG oral Tablet 2021-08 00:00: 00 06-28 00:00 :00 No [id number] 1{tbl} Take 1 tablet by mouth 2 times daily Margo plata Nitrofurant oin Monohyd Macro (Macrobid) 100 MG oral Capsule 2021-08 00:00: 00 06-28 00:00 :00 No [id number] 100mg Take 1 capsule (100 mg total) by mouth 2 times daily Margo plata Dexamethaso ne (DECADRON) 4 MG oral tablet 05-07 00:00: 00 Yes [id number] 4mg Take 1 tablet (4 mg total) by mouth daily (with breakfast) Margo plata Dexamethaso ne (DECADRON) 4 MG oral tablet 05-07 00:00: 00 Yes [id number] 4mg Take 1 tablet (4 mg total) by mouth daily (with breakfast) Margo plata Dexamethaso ne (DECADRON) 4 MG oral tablet 05-07 00:00: 00 Yes [id number] 4mg Take 1 tablet (4 mg total) by mouth daily (with breakfast) Margo plata Dexamethaso ne (DECADRON) 4 MG oral tablet 05-07 00:00: 00 Yes [id number] 4mg Take 1 tablet (4 mg total) by mouth daily (with breakfast) Margo plata Dexamethaso ne (DECADRON) 4 MG oral tablet 05-07 00:00: 00 Yes [id number] 4mg Take 1 tablet (4 mg total) by mouth daily (with breakfast) Margo plata Dexamethaso ne (DECADRON) 4 MG oral tablet 05-07 00:00: 00 04-18 00:00 :00 No [id number] 4mg Take 1 tablet (4 mg total) by mouth daily (with breakfast) Margo plata Levothyroxi ne Sodium 112 MCG oral Tablet 04-26 00:00: 00 Yes [id number] TAKE 1 TABLET(112 MCG) BY MOUTH DAILY Margo plata Levothyroxi ne Sodium 112 MCG oral Tablet 04-26 00:00: 00 Yes [id number] TAKE 1 TABLET(112 MCG) BY MOUTH DAILY Margo plata Levothyroxi ne Sodium 112 MCG oral Tablet 04-26 00:00: 00 Yes [id number] TAKE 1 TABLET(112 MCG) BY MOUTH DAILY Margo plata Levothyroxi ne Sodium 112 MCG oral Tablet 04-26 00:00: 00 Yes [id number] TAKE 1 TABLET(112 MCG) BY MOUTH DAILY Margo plata Levothyroxi ne Sodium 112 MCG oral Tablet 04-26 00:00: 00 Yes [id number] TAKE 1 TABLET(112 MCG) BY MOUTH DAILY Margo plata Levothyroxi ne Sodium 112 MCG oral Tablet 04-26 00:00: 00 Yes [id number] TAKE 1 TABLET(112 MCG) BY MOUTH DAILY Margo Seybold - Externa l guaiFENesin -Codeine 100-10 MG/5ML oral Syrup 8- 00:00: 00 Yes [id number] 5mL Q.[id number] 3D Take 5 mL by mouth 3 times daily as needed for cough Margo Seybold - Externa l guaiFENesin -Codeine 100-10 MG/5ML oral Syrup 8 00:00: 00 Yes [id number] 5mL Q.[id number] 3D Take 5 mL by mouth 3 times daily as needed for cough Margo Seybold - Externa l guaiFENesin -Codeine 100-10 MG/5ML oral Syrup 04-24 00:00: 00 Yes [id number] 5mL Q.[id number] 3D Take 5 mL by mouth 3 times daily as needed for cough Margo Seybold - Externa l guaiFENesin -Codeine 100-10 MG/5ML oral Syrup 04-24 00:00: 00 Yes [id number] 5mL Q.[id number] 3D Take 5 mL by mouth 3 times daily as needed for cough Margo Seybold - Externa l guaiFENesin -Codeine 100-10 MG/5ML oral Syrup 04-24 00:00: 00 Yes [id number] 5mL Q.[id number] 3D Take 5 mL by mouth 3 times daily as needed for cough Margo Seybold - Externa l guaiFENesin -Codeine 100-10 MG/5ML oral Syrup 04-24 00:00: 00 04-18 00:00 :00 No [id number] 5mL Q.[id number] 3D Take 5 mL by mouth 3 times daily as needed for cough Margo Seybold - Externa l Methotrexat e 2.5 MG oral Tablet 04-02 00:00: 00 06-28 00:00 :00 No [id number] TAKE 4 TABLETS(10 MG) BY MOUTH ON THURSDAYS. RECHECK LAB DIRECTED Margo Seybold - Externa l NIFEdipine CR Osmotic 60 MG oral TABLET SR 24 HR 03-26 00:00: 00 Yes [id number] 60mg TAKE 1 TABLET BY MOUTH DAILY Margo Vasquezshadiamita - Externa l NIFEdipine CR Osmotic 60 MG oral TABLET SR 24 HR 2021-0 8- 00:00: 00 Yes [id number] 60mg TAKE 1 TABLET BY MOUTH DAILY Margo Vasquezshadiamita - Externa l NIFEdipine CR Osmotic 60 MG oral TABLET SR 24 HR 2021-0 8- 00:00: 00 Yes [id number] 60mg TAKE 1 TABLET BY MOUTH DAILY Margo Vasquezshadiamita - Externa l NIFEdipine CR Osmotic 60 MG oral TABLET SR 24 HR 2021-0 8- 00:00: 00 Yes [id number] 60mg TAKE 1 TABLET BY MOUTH DAILY Margo Vasquezshadiamita - Externa l NIFEdipine CR Osmotic 60 MG oral TABLET SR 24 HR 2021-0 8 00:00: 00 Yes [id number] 60mg TAKE 1 TABLET BY MOUTH DAILY Margo shadiamita - Externa l Azelastine HCl 0.1 % nasal Solution 2021-0 03-23 00:00: 00 Yes [id number] USE 2 SPRAYS IN EACH NOSTRIL TWICE DAILY Margo Royold - Externa l Azelastine HCl 0.1 % nasal Solution 2021-0 03-23 00:00: 00 Yes [id number] USE 2 SPRAYS IN EACH NOSTRIL TWICE DAILY Margo Royold - Externa l Azelastine HCl 0.1 % nasal Solution 0 03-23 00:00: 00 Yes [id number] USE 2 SPRAYS IN EACH NOSTRIL TWICE DAILY Margo Royamita - Externa l Azelastine HCl 0.1 % nasal Solution 2021-0 03-23 00:00: 00 Yes [id number] USE 2 SPRAYS IN EACH NOSTRIL TWICE DAILY Margo Ambriz - Externa l Azelastine HCl 0.1 % nasal Solution 2021-0 03-23 00:00: 00 Yes [id number] USE 2 SPRAYS IN EACH NOSTRIL TWICE DAILY Margo Vasquezybold - Externa l Azelastine HCl 0.1 % nasal Solution 2021-0 03-23 00:00: 00 Yes [id number] USE 2 SPRAYS IN EACH NOSTRIL TWICE DAILY Margo Ryoold - Externa l Azelastine HCl 0.1 % nasal Solution 0 03-23 00:00: 00 Yes [id number] USE 2 SPRAYS IN EACH NOSTRIL TWICE DAILY Margo Ambriz - Externa l Azelastine HCl 0.1 % nasal Solution 0 03-23 00:00: 00 Yes [id number] USE 2 SPRAYS IN EACH NOSTRIL TWICE DAILY Margo Ambriz - Externa l Azelastine HCl 0.1 % nasal Solution 0 03-23 00:00: 00 Yes [id number] USE 2 SPRAYS IN EACH NOSTRIL TWICE DAILY Margo Ambriz - Externa l Azelastine HCl 0.1 % nasal Solution 0 03-23 00:00: 00 Yes [id number] USE 2 SPRAYS IN EACH NOSTRIL TWICE DAILY Margo Ambriz - Externa l Azelastine HCl 0.1 % nasal Solution 0 03-23 00:00: 00 Yes [id number] USE 2 SPRAYS IN EACH NOSTRIL TWICE DAILY Margo Ambriz - Externa l Azelastine HCl 0.1 % nasal Solution 0 03-23 00:00: 00 Yes [id number] USE 2 SPRAYS IN EACH NOSTRIL TWICE DAILY Margo Ambriz - Externa l Azelastine HCl 0.1 % nasal Solution 0 03-23 00:00: 00 Yes [id number] USE 2 SPRAYS IN EACH NOSTRIL TWICE DAILY Margo Ambriz - Externa l Azelastine HCl 0.1 % nasal Solution 0 03-23 00:00: 00 Yes [id number] USE 2 SPRAYS IN EACH NOSTRIL TWICE DAILY Margo Ambriz - Externa l Ciclopirox 8 % apply externally Solution 0 03-07 00:00: 00 Yes [id number] Apply qday to affected nails Margo Ambriz - Externa l Ciclopirox 8 % apply externally Solution 0 03-07 00:00: 00 Yes [id number] Apply qday to affected nails Margo Royold - Externa l Ciclopirox 8 % apply externally Solution 0 03-07 00:00: 00 Yes [id number] Apply qday to affected nails Margo Seruddy - Externa l Ciclopirox 8 % apply externally Solution 03-07 00:00: 00 Yes [id number] Apply qday to affected nails Margo Ambriz - Externa l Ciclopirox 8 % apply externally Solution 03-07 00:00: 00 Yes [id number] Apply qday to affected nails Margo Ambriz - Externa l Ciclopirox 8 % apply externally Solution 03-07 00:00: 00 04-18 00:00 :00 No [id number] Apply qday to affected nails Margo shadiamita - Externa l Cefdinir 300 MG oral Capsule 03-07 00:00: 00 06-28 00:00 :00 No [id number] 300mg Take 1 capsule (300 mg total) by mouth 2 times daily Margo Marreroa l Aspirin 81 MG OR CHEW 12-12 10:41: 03 Yes 81mg Take 81 mg by mouth daily Margo Ambriz Multiple Vitamins-Mi nerals (MULTIVITAM IN OR) 12-12 10:41: 03 Yes 1{tbl} Take 1 tablet by mouth daily Margo Ambriz Greenfield-3 Fatty Acids (FISH OIL OR) 12-12 10:41: 03 Yes 1{capsu le} Take 1 capsule by mouth daily Margo Ambriz Polyvinyl Alcohol-Pov idone (REFRESH OP) 12-12 10:41: 03 Yes 1 drop in each eye Margo Ambriz Clobetasol Propionate 0.05 % apply externally Solution 12-12 00:00: 00 Yes [id number] Apply BID to scaly areas of scalp Sat-Sat PRN. Margo Ambriz Acetylcyste ine 600 MG oral Capsule 12-12 00:00: 00 Yes [id number] Take one po BID with food for itching. Margo Ambriz Methotrexat e 2.5 MG oral Tablet 12-12 00:00: 00 Yes [id number] Take 4 tablets (10mg) on . Recheck lab as directed. Margo Ambriz Folic Acid 1 MG oral tablet 12-12 00:00: 00 Yes [id number] Take one daily except on (not on Methotrexa ). Margo Ambriz Calcipotrie ne 0.005 % apply externally Cream 12-12 00:00: 00 Yes [id number] Apply sparingly BID to rash Sat/Sun prn. Margo Ambriz Clobetasol Propionate 0.05 % apply externally Ointment 12-12 00:00: 00 Yes [id number] Apply sparingly BID to rash of body Mon-Sat PRN. Not for use on face/folds . Margo Ambriz Hydrocortis one 2.5 % apply externally Ointment 12-12 00:00: 00 Yes [id number] Apply BID sparingly to rash/itchy areas face/folds Mon-sat PRN. Margo Ambriz Clobetasol Propionate 0.05 % apply externally Solution 12-12 00:00: 00 Yes [id number] Apply BID to scaly areas of scalp Mon-Sat PRN. Margo Ambriz - Externa boni Acetylcyste ine 600 MG oral Capsule 12-12 00:00: 00 Yes [id number] Take one po BID with food for itching. Margo Ambriz - Externa l Calcipotrie ne 0.005 % apply externally Cream 12-12 00:00: 00 Yes [id number] Apply sparingly BID to rash Sat/Sun prn. Margo Ambriz - Janesa l Hydrocortis one 2.5 % apply externally Ointment 12-12 00:00: 00 Yes [id number] Apply BID sparingly to rash/itchy areas face/folds Mon-fri PRN. Margo Ambriz - Externa l Clobetasol Propionate 0.05 % apply externally Solution 12-12 00:00: 00 Yes [id number] Apply BID to scaly areas of scalp Mon-Sat PRN. Margo Ambriz - Externa l Acetylcyste ine 600 MG oral Capsule 12-12 00:00: 00 Yes [id number] Take one po BID with food for itching. Margo Ambriz - Externa l Calcipotrie ne 0.005 % apply externally Cream 12-12 00:00: 00 Yes [id number] Apply sparingly BID to rash Sat/Sun prn. Margo Ambriz - Externa l Hydrocortis one 2.5 % apply externally Ointment 12-12 00:00: 00 Yes [id number] Apply BID sparingly to rash/itchy areas face/folds Mon-fri PRN. [facility]o Ambriz - Externa l Clobetasol Propionate 0.05 % apply externally Solution 12-12 00:00: 00 Yes [id number] Apply BID to scaly areas of scalp Mon-Fri PRN. Margo Ambriz - Externa l Acetylcyste ine 600 MG oral Capsule 12-12 00:00: 00 Yes [id number] Take one po BID with food for itching. Margo Ambriz - Externa l Calcipotrie ne 0.005 % apply externally Cream 12-12 00:00: 00 Yes [id number] Apply sparingly BID to rash Sat/Sun prn. Margo Ambriz - Externa l Hydrocortis one 2.5 % apply externally Ointment 12-12 00:00: 00 Yes [id number] Apply BID sparingly to rash/itchy areas face/folds Mon-fri PRN. Margo Ambriz - Externa l Clobetasol Propionate 0.05 % apply externally Solution 12-12 00:00: 00 Yes [id number] Apply BID to scaly areas of scalp Mon-Sat PRN. Margo Ambriz - Externa l Acetylcyste ine 600 MG oral Capsule 12-12 00:00: 00 Yes [id number] Take one po BID with food for itching. Margo Ambriz - Externa l Calcipotrie ne 0.005 % apply externally Cream 12-12 00:00: 00 Yes [id number] Apply sparingly BID to rash Sat/Sun prn. Margo Royold - Externa l Hydrocortis one 2.5 % apply externally Ointment 12-12 00:00: 00 Yes [id number] Apply BID sparingly to rash/itchy areas face/folds Mon-fri PRN. Margo Ambriz - Externa l Clobetasol Propionate 0.05 % apply externally Solution 12-12 00:00: 00 Yes [id number] Apply BID to scaly areas of scalp Mon-Sat PRN. Margo Ambriz - Externa l Acetylcyste ine 600 MG oral Capsule 12-12 00:00: 00 Yes [id number] Take one po BID with food for itching. Margo Ambriz - Externa l Calcipotrie ne 0.005 % apply externally Cream 12-12 00:00: 00 Yes [id number] Apply sparingly BID to rash Sat/Sun prn. Margo Ambriz - Externa l Hydrocortis one 2.5 % apply externally Ointment 12-12 00:00: 00 Yes [id number] Apply BID sparingly to rash/itchy areas face/folds Mon-sat PRN. Margo Ambriz - Externa l Clobetasol Propionate 0.05 % apply externally Solution 12-12 00:00: 00 Yes [id number] Apply BID to scaly areas of scalp Mon-Sat PRN. Margo Ambriz - Externa l Calcipotrie ne 0.005 % apply externally Cream 12-12 00:00: 00 Yes [id number] Apply sparingly BID to rash Sat/Sun prn. Margo Ambriz - Externa l Hydrocortis one 2.5 % apply externally Ointment 12-12 00:00: 00 Yes [id number] Apply BID sparingly to rash/itchy areas face/folds Mon-sat PRN. Margo Ambriz - Externa l Clobetasol Propionate 0.05 % apply externally Solution 12-12 00:00: 00 Yes [id number] Apply BID to scaly areas of scalp Mon-Sat PRN. Margo Ambriz - Externa l Calcipotrie ne 0.005 % apply externally Cream 12-12 00:00: 00 Yes [id number] Apply sparingly BID to rash Sat/Sun prn. Margo Ambriz - Externa l Hydrocortis one 2.5 % apply externally Ointment 12-12 00:00: 00 Yes [id number] Apply BID sparingly to rash/itchy areas face/folds Mon-sat PRN. Margo Ambriz - Externa l Clobetasol Propionate 0.05 % apply externally Solution 12-12 00:00: 00 05-06 00:00 :00 No [id number] Apply BID to scaly areas of scalp Sat-Sat PRN. Margo plata Calcipotrie ne 0.005 % apply externally Cream 12-12 00:00: 00 05-06 00:00 :00 No [id number] Apply sparingly BID to rash Sat/Sun prn. Margo plata Hydrocortis one 2.5 % apply externally Ointment 12-12 00:00: 00 05-06 00:00 :00 No [id number] Apply BID sparingly to rash/itchy areas face/folds Sat-sat PRN. Margo plata Acetylcyste ine 600 MG oral Capsule 12-12 00:00: 00 04-18 00:00 :00 No [id number] Take one po BID with food for itching. Margo plata Folic Acid 1 MG oral tablet 12-12 00:00: 00 06-28 00:00 :00 No [id number] Take one daily except on (not on Methotrexa ). Margo plata Aspirin 81 MG OR CHEW 10-02 09:37: 57 Yes 81mg Take 81 mg by mouth daily Margo Ambriz Multiple Vitamins-Mi nerals (MULTIVITAM IN OR) 10-02 09:37: 57 Yes 1{tbl} Take 1 tablet by mouth daily Margo Ambriz Greenfield-3 Fatty Acids (FISH OIL OR) 10-02 09:37: 57 Yes 1{capsu le} Take 1 capsule by mouth daily Margo Ambriz Polyvinyl Alcohol-Pov idone (REFRESH OP) 10-02 09:37: 57 Yes 1 drop in each eye Margo Ambriz FLUTICASONE PROPIONATE, NASAL, 50 MCG/ACT nasal Suspension 10-02 00:00: 00 Yes [id number] 100ug Use 2 sprays (100 mcg total) in each nostril daily SHAKE LIQUID Margo Ambriz FLUTICASONE PROPIONATE, NASAL, 50 MCG/ACT nasal Suspension 10-02 00:00: 00 Yes [id number] 100ug Use 2 sprays (100 mcg total) in each nostril daily SHAKE LIQUID Margo Ambriz FLUTICASONE PROPIONATE, NASAL, 50 MCG/ACT nasal Suspension 10-02 00:00: 00 Yes [id number] 100ug Use 2 sprays (100 mcg total) in each nostril daily SHAKE LIQUID Margo Ambriz - Externa l FLUTICASONE PROPIONATE, NASAL, 50 MCG/ACT nasal Suspension 10-02 00:00: 00 Yes [id number] 100ug Use 2 sprays (100 mcg total) in each nostril daily SHAKE LIQUID Margo Ambriz - Externa l FLUTICASONE PROPIONATE, NASAL, 50 MCG/ACT nasal Suspension 10-02 00:00: 00 Yes [id number] 100ug Use 2 sprays (100 mcg total) in each nostril daily SHAKE LIQUID Margo Ambriz - Externa l FLUTICASONE PROPIONATE, NASAL, 50 MCG/ACT nasal Suspension 10-02 00:00: 00 Yes [id number] 100ug Use 2 sprays (100 mcg total) in each nostril daily SHAKE LIQUID Margo Ambriz - Janesa l Aspirin 81 MG OR CHEW 09-15 14:54: 39 Yes 81mg Take 81 mg by mouth daily Margo Ambriz Multiple Vitamins-Mi nerals (MULTIVITAM IN OR) 09-15 14:54: 39 Yes 1{tbl} Take 1 tablet by mouth daily Margo Ambriz Greenfield-3 Fatty Acids (FISH OIL OR) 09-15 14:54: 39 Yes 1{capsu le} Take 1 capsule by mouth daily Margo Ambriz Polyvinyl Alcohol-Pov idone (REFRESH OP) 09-15 14:54: 39 Yes 1 drop in each eye Margo Ambriz Dicyclomine HCl (Bentyl) 10 MG oral Capsule 09-15 00:00: 00 Yes 10mg Take 1 capsule (10 mg total) by mouth 4 times daily (before meals and nightly) Margo Ambriz Dicyclomine HCl (Bentyl) 10 MG oral Capsule 09-15 00:00: 00 Yes 10mg Take 1 capsule (10 mg total) by mouth 4 times daily (before meals and nightly) Margo Ambriz Dicyclomine HCl (Bentyl) 10 MG oral Capsule 09-15 00:00: 00 Yes 10mg Take 1 capsule (10 mg total) by mouth 4 times daily (before meals and nightly) Margo Ambriz Aspirin 81 MG OR CHEW 09-13 10:30: 27 Yes 81mg Take 81 mg by mouth daily Margo Ambriz Multiple Vitamins-Mi nerals (MULTIVITAM IN OR) 09-13 10:30: 27 Yes 1{tbl} Take 1 tablet by mouth daily Margo Ambriz Greenfield-3 Fatty Acids (FISH OIL OR) 09-13 10:30: 27 Yes 1{capsu le} Take 1 capsule by mouth daily Margo Ambriz Polyvinyl Alcohol-Pov idone (REFRESH OP) 09-13 10:30: 27 Yes 1 drop in each eye Margo Ambriz guaiFENesin -Codeine (Virtussin A/C) 100-10 MG/5ML oral Syrup 08-31 00:00: 00 09-04 05:59 :00 No [id number] 5mL [id number] 3D Take 5 mL by mouth 3 times daily as needed for cough for up to 3 days Margo Ambriz Tafluprost, PF, (Zioptan) 0.0015 % ophthalmic Solution 2020-08 00:00: 00 Yes 1[drp] Place 1 drop into both eyes nightly Margo Ambriz Tafluprost, PF, (Zioptan) 0.0015 % ophthalmic Solution 2020-08 00:00: 00 Yes 1[drp] Place 1 drop into both eyes nightly Margo Ambriz Tafluprost, PF, (Zioptan) 0.0015 % ophthalmic Solution 2020-08 00:00: 00 Yes 1[drp] Place 1 drop into both eyes nightly Margo Ambriz Tafluprost, PF, (Zioptan) 0.0015 % ophthalmic Solution 2020-08 00:00: 00 Yes 1[drp] Place 1 drop into both eyes nightly Margo Ambriz Tafluprost, PF, (Zioptan) 0.0015 % ophthalmic Solution 2020-08 00:00: 00 Yes 1[drp] Place 1 drop into both eyes nightly Margo Ambriz Tafluprost, PF, (Zioptan) 0.0015 % ophthalmic Solution 2020-08 00:00: 00 Yes 1[drp] Place 1 drop into both eyes nightly Margodexter Ambriz - Externa l Aspirin 81 MG OR CHEW 2020-08 11:41: 44 Yes 81mg Take 81 mg by mouth daily Margo Seruddy Multiple Vitamins-Mi nerals (MULTIVITAM IN OR) 2020-08 11:41: 44 Yes 1{tbl} Take 1 tablet by mouth daily Margo Seruddy Greenfield-3 Fatty Acids (FISH OIL OR) 2020-08 11:41: 44 Yes 1{capsu le} Take 1 capsule by mouth daily Margo Vasquezshadiamita Polyvinyl Alcohol-Pov idone (REFRESH OP) 2020-08 11:41: 44 Yes 1 drop in each eye Margo Vasquezshadiamita Aspirin 81 MG OR CHEW 2020-08 11:41: 44 Yes 81mg Take 81 mg by mouth daily Margo Seruddy Multiple Vitamins-Mi nerals (MULTIVITAM IN OR) 2020-08 11:41: 44 Yes 1{tbl} Take 1 tablet by mouth daily Margo Seruddy Greenfield-3 Fatty Acids (FISH OIL OR) 2020-08 11:41: 44 Yes 1{capsu le} Take 1 capsule by mouth daily Margo Ambriz Polyvinyl Alcohol-Pov idone (REFRESH OP) 2020-08 11:41: 44 Yes 1 drop in each eye Margo Vasquezruddy Montelukast (SINGULAIR) 10 MG oral Tablet tablet 2020-08 00:00: 00 Yes [id number] TAKE 1 TABLET BY MOUTH EVERY DAY AT 5 PM Magro Ambriz Metoprolol Tartrate 25 MG oral Tablet 2020-08 00:00: 00 Yes [id number] TAKE 1 TABLET(25 MG) BY MOUTH TWICE DAILY Margo Ambriz Montelukast (SINGULAIR) 10 MG oral Tablet tablet 2020-08 00:00: 00 Yes [id number] TAKE 1 TABLET BY MOUTH EVERY DAY AT 5 PM Margo Ambriz Metoprolol Tartrate 25 MG oral Tablet 2020-08 00:00: 00 Yes [id number] TAKE 1 TABLET(25 MG) BY MOUTH TWICE DAILY Margo Ambriz Montelukast (SINGULAIR) 10 MG oral Tablet tablet 2020-08 00:00: 00 Yes [id number] TAKE 1 TABLET BY MOUTH EVERY DAY AT 5 PM Margo Ambriz Metoprolol Tartrate 25 MG oral Tablet 2020-08 00:00: 00 Yes [id number] TAKE 1 TABLET(25 MG) BY MOUTH TWICE DAILY Margo Ambriz Montelukast (SINGULAIR) 10 MG oral Tablet tablet 2020-08 00:00: 00 Yes [id number] TAKE 1 TABLET BY MOUTH EVERY DAY AT 5 PM Margo Ambriz Metoprolol Tartrate 25 MG oral Tablet 2020-08 00:00: 00 Yes [id number] TAKE 1 TABLET(25 MG) BY MOUTH TWICE DAILY Margo Ambriz Montelukast (SINGULAIR) 10 MG oral Tablet tablet 2020-08 00:00: 00 Yes [id number] TAKE 1 TABLET BY MOUTH EVERY DAY AT 5 PM Margo Ambriz Metoprolol Tartrate 25 MG oral Tablet 2020-08 00:00: 00 Yes [id number] TAKE 1 TABLET(25 MG) BY MOUTH TWICE DAILY Margo Ambriz Montelukast (SINGULAIR) 10 MG oral Tablet tablet 2020-08 00:00: 00 Yes [id number] TAKE 1 TABLET BY MOUTH EVERY DAY AT 5 PM Margo Ambriz Metoprolol Tartrate 25 MG oral Tablet 2020-08 00:00: 00 Yes [id number] TAKE 1 TABLET(25 MG) BY MOUTH TWICE DAILY Margo Ambriz Montelukast (SINGULAIR) 10 MG oral Tablet tablet 2020-08 00:00: 00 Yes [id number] TAKE 1 TABLET BY MOUTH EVERY DAY AT 5 PM Margo plata Metoprolol Tartrate 25 MG oral Tablet 2020-08 00:00: 00 Yes [id number] TAKE 1 TABLET(25 MG) BY MOUTH TWICE DAILY Margo plata Montelukast (SINGULAIR) 10 MG oral Tablet tablet 2020-08 00:00: 00 Yes [id number] TAKE 1 TABLET BY MOUTH EVERY DAY AT 5 PM Margo plata Metoprolol Tartrate 25 MG oral Tablet 2020-08 00:00: 00 Yes [id number] TAKE 1 TABLET(25 MG) BY MOUTH TWICE DAILY Margo plata Aspirin 81 MG OR CHEW 2020-08 09:19: 09 Yes 81mg Take 81 mg by mouth daily Margo Ambriz Multiple Vitamins-Mi nerals (MULTIVITAM IN OR) 2020-08 09:19: 09 Yes 1{tbl} Take 1 tablet by mouth daily Margo Ambriz Greenfield-3 Fatty Acids (FISH OIL OR) 2020-08 09:19: 09 Yes 1{capsu le} Take 1 capsule by mouth daily Margo Ambriz Polyvinyl Alcohol-Pov idone (REFRESH OP) 2020-08 09:19: 09 Yes 1 drop in each eye Margo Ivey ne Acetonide 0.1 % apply externally Ointment 2020-08 00:00: 00 Yes [id number] Apply sparingly BID to rash of body PRN. Not for face or folds. Margo Ambriz Triamcinrosalino ne Acetonide 0.1 % apply externally Ointment 2020-08 00:00: 00 Yes [id number] Apply sparingly BID to rash of body PRN. Not for face or folds. Margo Ambriz Triamcinolo ne Acetonide 0.1 % apply externally Ointment 2020-08 00:00: 00 Yes [id number] Apply sparingly BID to rash of body PRN. Not for face or folds. Margo Ambriz Triamcinolo ne Acetonide 0.1 % apply externally Ointment 2020-08 00:00: 00 Yes [id number] Apply sparingly BID to rash of body PRN. Not for face or folds. Margo Ambriz Triamcinolo ne Acetonide 0.1 % apply externally Ointment 2020-08 00:00: 00 Yes [id number] Apply sparingly BID to rash of body PRN. Not for face or folds. Margo Ambriz Triamcinolo ne Acetonide 0.1 % apply externally Ointment 2020-08 00:00: 00 Yes [id number] Apply sparingly BID to rash of body PRN. Not for face or folds. Margo Ambriz Triamcinolo ne Acetonide 0.1 % apply externally Ointment 2020-08 00:00: 00 Yes [id number] Apply sparingly BID to rash of body PRN. Not for face or folds. Margo Ambriz Lovastatin 40 MG oral Tablet 2020-08 00:00: 00 Yes [id number] 40mg Take 1 tablet (40 mg total) by mouth nightly Margo Ambriz Lovastatin 40 MG oral Tablet 2020-08 00:00: 00 Yes [id number] 40mg Take 1 tablet (40 mg total) by mouth nightly Margo Ambriz Lovastatin 40 MG oral Tablet 2020-08 00:00: 00 Yes [id number] 40mg Take 1 tablet (40 mg total) by mouth nightly Margo Ambriz Lovastatin 40 MG oral Tablet 2020-08 00:00: 00 Yes [id number] 40mg Take 1 tablet (40 mg total) by mouth nightly Margo Ambriz Lovastatin 40 MG oral Tablet 2020-08 00:00: 00 Yes [id number] 40mg Take 1 tablet (40 mg total) by mouth nightly Margo Ambriz Lovastatin 40 MG oral Tablet 2020-08 00:00: 00 Yes [id number] 40mg Take 1 tablet (40 mg total) by mouth nightly Margo Ambriz Lovastatin 40 MG oral Tablet 2020-08 00:00: 00 Yes [id number] 40mg Take 1 tablet (40 mg total) by mouth nightly Margo Ambriz Aspirin 81 MG OR CHEW 2020-08 10:47: 12 Yes 81mg Take 81 mg by mouth daily Margo Ambriz Multiple Vitamins-Mi nerals (MULTIVITAM IN OR) 2020-08 10:47: 12 Yes 1{tbl} Take 1 tablet by mouth daily Margo Ambriz Greenfield-3 Fatty Acids (FISH OIL OR) 2020-08 10:47: 12 Yes 1{capsu le} Take 1 capsule by mouth daily Margo Ambriz Polyvinyl Alcohol-Pov idone (REFRESH OP) 2020-08 10:47: 12 Yes 1 drop in each eye [facility]o Ambriz Clobetasol Propionate 0.05 % apply externally Ointment 2020-08 00:00: 00 Yes [id number] Apply sparingly BID to rash of body Mon-Fri PRN. Not for use on face/folds . Margo Ambriz Clobetasol Propionate 0.05 % apply externally Ointment 2020-08 00:00: 00 Yes [id number] Apply sparingly BID to rash of body Mon-Fri PRN. Not for use on face/folds . Margo Ambriz Clobetasol Propionate 0.05 % apply externally Ointment 2020-08 00:00: 00 Yes [id number] Apply sparingly BID to rash of body Mon-Fri PRN. Not for use on face/folds . [facility]o Ambriz Clobetasol Propionate 0.05 % apply externally Ointment 2020-08 00:00: 00 Yes [id number] Apply sparingly BID to rash of body Mon-Fri PRN. Not for use on face/folds . Margo Ambriz Clobetasol Propionate 0.05 % apply externally Ointment 2020-08 00:00: 00 Yes [id number] Apply sparingly BID to rash of body Mon-Fri PRN. Not for use on face/folds . [facility]o Ambriz Clobetasol Propionate 0.05 % apply externally Ointment 2020-08 00:00: 00 Yes [id number] Apply sparingly BID to rash of body Mon-Fri PRN. Not for use on face/folds . Margo Ambriz Clobetasol Propionate 0.05 % apply externally Ointment 2020-08 00:00: 00 Yes [id number] Apply sparingly BID to rash of body Mon-Fri PRN. Not for use on face/folds . Margo Ambriz Clobetasol Propionate 0.05 % apply externally Ointment 2020-08 0 00:00: 00 12-12 00:00 :00 No [id number] Apply sparingly BID to rash of body Sat-Sat PRN. Not for use on face/folds . Margo Ambriz Levothyroxi ne Sodium 112 MCG oral Tablet 05-03 00:00: 00 Yes [id number] TAKE 1 TABLET(112 MCG) BY MOUTH DAILY [facility]o Ambriz Levothyroxi ne Sodium 112 MCG oral Tablet 05-03 00:00: 00 Yes [id number] TAKE 1 TABLET(112 MCG) BY MOUTH DAILY [facility]o Ambriz Levothyroxi ne Sodium 112 MCG oral Tablet 05-03 00:00: 00 Yes [id number] TAKE 1 TABLET(112 MCG) BY MOUTH DAILY [facility]o Ambriz Levothyroxi ne Sodium 112 MCG oral Tablet 05-03 00:00: 00 Yes [id number] TAKE 1 TABLET(112 MCG) BY MOUTH DAILY [facility]o Ambriz Levothyroxi ne Sodium 112 MCG oral Tablet 05-03 00:00: 00 Yes [id number] TAKE 1 TABLET(112 MCG) BY MOUTH DAILY [facility]o Ambriz Levothyroxi ne Sodium 112 MCG oral Tablet 05-03 00:00: 00 Yes [id number] TAKE 1 TABLET(112 MCG) BY MOUTH DAILY [facility]o Ambriz Levothyroxi ne Sodium 112 MCG oral Tablet 05-03 00:00: 00 Yes [id number] TAKE 1 TABLET(112 MCG) BY MOUTH DAILY Margo Ambriz Levothyroxi ne Sodium 112 MCG oral Tablet 05-03 00:00: 00 Yes [id number] TAKE 1 TABLET(112 MCG) BY MOUTH DAILY Margo Ambriz Triamterene -HCTZ 37.5-25 MG oral Tablet 04-25 00:00: 00 Yes [id number] 1{tbl} Q24H Take 1 tablet by mouth daily as needed Margo Ambriz Triamterene -HCTZ 37.5-25 MG oral Tablet 04-25 00:00: 00 Yes [id number] 1{tbl} Q24H Take 1 tablet by mouth daily as needed Margo Ambriz Triamterene -HCTZ 37.5-25 MG oral Tablet 8 00:00: 00 Yes [id number] 1{tbl} Q24H Take 1 tablet by mouth daily as needed Margo ybold Triamterene -HCTZ 37.5-25 MG oral Tablet 8 00:00: 00 Yes [id number] 1{tbl} Q24H Take 1 tablet by mouth daily as needed Margo ybamita Triamterene -HCTZ 37.5-25 MG oral Tablet 04-25 00:00: 00 Yes [id number] 1{tbl} Q24H Take 1 tablet by mouth daily as needed Margo Seybamita Triamterene -HCTZ 37.5-25 MG oral Tablet 04-25 00:00: 00 Yes [id number] 1{tbl} Q24H Take 1 tablet by mouth daily as needed Margo Ambriz Triamterene -HCTZ 37.5-25 MG oral Tablet 04-25 00:00: 00 Yes [id number] 1{tbl} QD Take 1 tablet by mouth daily as needed Margo Ambriz Triamterene -HCTZ 37.5-25 MG oral Tablet 04-25 00:00: 00 Yes [id number] 1{tbl} QD Take 1 tablet by mouth daily as needed Margo Ambriz - Janesa l Triamterene -HCTZ 37.5-25 MG oral Tablet 04-25 00:00: 00 Yes [id number] 1{tbl} Q24H Take 1 tablet by mouth daily as needed Margo Ambriz Triamterene -HCTZ 37.5-25 MG oral Tablet 04-25 00:00: 00 Yes [id number] 1{tbl} QD Take 1 tablet by mouth daily as needed Margo Ambriz - Externa l Azelastine HCl 0.1 % nasal Solution 8 00:00: 00 Yes [id number] USE 2 SPRAYS IN EACH NOSTRIL TWICE DAILY [facility]o Ambriz Azelastine HCl 0.1 % nasal Solution 8 00:00: 00 Yes [id number] USE 2 SPRAYS IN EACH NOSTRIL TWICE DAILY Margo Royold Azelastine HCl 0.1 % nasal Solution 0 8 00:00: 00 Yes [id number] USE 2 SPRAYS IN EACH NOSTRIL TWICE DAILY Margo Vasquezybold Azelastine HCl 0.1 % nasal Solution 0 8 00:00: 00 Yes [id number] USE 2 SPRAYS IN EACH NOSTRIL TWICE DAILY Margo Royold Azelastine HCl 0.1 % nasal Solution 0 8 00:00: 00 Yes [id number] USE 2 SPRAYS IN EACH NOSTRIL TWICE DAILY Margo Royold Azelastine HCl 0.1 % nasal Solution 0 8 00:00: 00 Yes [id number] USE 2 SPRAYS IN EACH NOSTRIL TWICE DAILY Margo Royold Azelastine HCl 0.1 % nasal Solution 0 8 00:00: 00 Yes [id number] USE 2 SPRAYS IN EACH NOSTRIL TWICE DAILY Margo Royold Azelastine HCl 0.1 % nasal Solution 0 8 00:00: 00 Yes [id number] USE 2 SPRAYS IN EACH NOSTRIL TWICE DAILY Margodexter Ambriz NIFEdipine CR Osmotic 60 MG oral TABLET SR 24 HR 8- 00:00: 00 Yes [id number] 60mg TAKE 1 TABLET BY MOUTH DAILY Margo shadiamita NIFEdipine CR Osmotic 60 MG oral TABLET SR 24 HR 8- 00:00: 00 Yes [id number] 60mg TAKE 1 TABLET BY MOUTH DAILY Margo shadiamita NIFEdipine CR Osmotic 60 MG oral TABLET SR 24 HR 0 8- 00:00: 00 Yes [id number] 60mg TAKE 1 TABLET BY MOUTH DAILY Margo shadiamita NIFEdipine CR Osmotic 60 MG oral TABLET SR 24 HR 0 8- 00:00: 00 Yes [id number] 60mg TAKE 1 TABLET BY MOUTH DAILY Margo shadiamita NIFEdipine CR Osmotic 60 MG oral TABLET SR 24 HR 8- 00:00: 00 Yes [id number] 60mg TAKE 1 TABLET BY MOUTH DAILY Margo Royamita NIFEdipine CR Osmotic 60 MG oral TABLET SR 24 HR 8- 00:00: 00 Yes [id number] 60mg TAKE 1 TABLET BY MOUTH DAILY Margo Ambriz NIFEdipine CR Osmotic 60 MG oral TABLET SR 24 HR 2020-0 8-11 00:00: 00 Yes [id number] 60mg TAKE 1 TABLET BY MOUTH DAILY Margo Ambriz NIFEdipine CR Osmotic 60 MG oral TABLET SR 24 HR 2020-0 8-11 00:00: 00 Yes [id number] 60mg TAKE 1 TABLET BY MOUTH DAILY Margo Ambriz Loratadine (Claritin Reditabs) 10 MG oral TABLET DISPERSIBLE 0 7-13 00:00: 00 Yes [id number] 10mg Take 1 tablet (10 mg total) by mouth daily Margo Priest Externa boni Loratadine (Claritin Reditabs) 10 MG oral TABLET DISPERSIBLE 0 7-13 00:00: 00 Yes [id number] 10mg Take 1 tablet (10 mg total) by mouth daily Margo Priest Externa boni Loratadine (Claritin Reditabs) 10 MG oral TABLET DISPERSIBLE 2020-0 7-13 00:00: 00 Yes [id number] 10mg Take 1 tablet (10 mg total) by mouth daily Margo Ambriz Loratadine (Claritin Reditabs) 10 MG oral TABLET DISPERSIBLE 2020-0 7-13 00:00: 00 Yes [id number] 10mg Take 1 tablet (10 mg total) by mouth daily Margo Priest Externa boni Loratadine (Claritin Reditabs) 10 MG oral TABLET DISPERSIBLE 2020-0 7-13 00:00: 00 Yes [id number] 10mg Take 1 tablet (10 mg total) by mouth daily Margo Priest Externa boni Loratadine (Claritin Reditabs) 10 MG oral TABLET DISPERSIBLE 2020-0 7-13 00:00: 00 Yes [id number] 10mg Take 1 tablet (10 mg total) by mouth daily Margo Priest Externa boni Loratadine (Claritin Reditabs) 10 MG oral TABLET DISPERSIBLE 2020-0 7-13 00:00: 00 Yes [id number] 10mg Take 1 tablet (10 mg total) by mouth daily Margo Priest Externa boni Loratadine (Claritin Reditabs) 10 MG oral TABLET DISPERSIBLE 2020-0 7-13 00:00: 00 Yes [id number] 10mg Take 1 tablet (10 mg total) by mouth daily Margo Marreroa boni Loratadine (Claritin Reditabs) 10 MG oral TABLET DISPERSIBLE 1-0 7-13 00:00: 00 Yes [id number] 10mg Take 1 tablet (10 mg total) by mouth daily Margo Ambriz Loratadine (Claritin Reditabs) 10 MG oral TABLET DISPERSIBLE 1-0 7-13 00:00: 00 Yes [id number] 10mg Take 1 tablet (10 mg total) by mouth daily Margo Ambriz Loratadine (Claritin Reditabs) 10 MG oral TABLET DISPERSIBLE 1-0 7-13 00:00: 00 Yes [id number] 10mg Take 1 tablet (10 mg total) by mouth daily Margo Ambriz Loratadine (Claritin Reditabs) 10 MG oral TABLET DISPERSIBLE 2020-0 7-13 00:00: 00 Yes [id number] 10mg Take 1 tablet (10 mg total) by mouth daily Margo Ambriz Loratadine (Claritin Reditabs) 10 MG oral TABLET DISPERSIBLE 2020-0 7-13 00:00: 00 Yes [id number] 10mg Take 1 tablet (10 mg total) by mouth daily Margo Ambriz Loratadine (Claritin Reditabs) 10 MG oral TABLET DISPERSIBLE 2020-0 7-13 00:00: 00 Yes [id number] 10mg Take 1 tablet (10 mg total) by mouth daily Margo Ambirz Loratadine (Claritin Reditabs) 10 MG oral TABLET DISPERSIBLE 1-0 7-13 00:00: 00 Yes [id number] 10mg Take 1 tablet (10 mg total) by mouth daily Margo Priest Externa l Loratadine (Claritin Reditabs) 10 MG oral TABLET DISPERSIBLE 1-0 7-13 00:00: 00 Yes [id number] 10mg Take 1 tablet (10 mg total) by mouth daily Margo Ambriz Loratadine (Claritin Reditabs) 10 MG oral TABLET DISPERSIBLE 1-0 7-13 00:00: 00 Yes [id number] 10mg Take 1 tablet (10 mg total) by mouth daily Margo Priest Externa l Loratadine (Claritin Reditabs) 10 MG oral TABLET DISPERSIBLE 2021-0 7-13 00:00: 00 Yes [id number] 10mg Take 1 tablet (10 mg total) by mouth daily Margo plata Loratadine (Claritin Reditabs) 10 MG oral TABLET DISPERSIBLE 0 - 00:00: 00 Yes [id number] 10mg Take 1 tablet (10 mg total) by mouth daily Margo plata Loratadine (Claritin Reditabs) 10 MG oral TABLET DISPERSIBLE 0 7- 00:00: 00 Yes [id number] 10mg Take 1 tablet (10 mg total) by mouth daily Margo plata Loratadine (Claritin Reditabs) 10 MG oral TABLET DISPERSIBLE 0 03-07 00:00: 00 Yes [id number] 10mg Take 1 tablet (10 mg total) by mouth daily Margo plata Loratadine (Claritin Reditabs) 10 MG oral TABLET DISPERSIBLE 03-07 00:00: 00 Yes [id number] 10mg Take 1 tablet (10 mg total) by mouth daily Margo plata Levocetiriz ine Dihydrochlo ride 5 MG oral Tablet 12-14 00:00: 00 Yes [id number] 5mg Take 1 tablet (5 mg total) by mouth at bedtime Margo Ambriz Levocetiriz ine Dihydrochlo ride 5 MG oral Tablet 12-14 00:00: 00 Yes [id number] 5mg Take 1 tablet (5 mg total) by mouth at bedtime Margo Ambriz Levocetiriz ine Dihydrochlo ride 5 MG oral Tablet 0 12-14 00:00: 00 Yes [id number] 5mg Take 1 tablet (5 mg total) by mouth at bedtime Margo Ambriz Levocetiriz ine Dihydrochlo ride 5 MG oral Tablet 0 12-14 00:00: 00 Yes [id number] 5mg Take 1 tablet (5 mg total) by mouth at bedtime Margo Ambriz Levocetiriz ine Dihydrochlo ride 5 MG oral Tablet 0 12-14 00:00: 00 Yes [id number] 5mg Take 1 tablet (5 mg total) by mouth at bedtime Margo Ambriz Levocetiriz ine Dihydrochlo ride 5 MG oral Tablet 12-14 00:00: 00 Yes [id number] 5mg Take 1 tablet (5 mg total) by mouth at bedtime Margo Ambriz Levocetiriz ine Dihydrochlo ride 5 MG oral Tablet 12-14 00:00: 00 Yes [id number] 5mg Take 1 tablet (5 mg total) by mouth at bedtime Margo Ambriz Levocetiriz ine Dihydrochlo ride 5 MG oral Tablet 12-14 00:00: 00 Yes [id number] 5mg Take 1 tablet (5 mg total) by mouth at bedtime Margo Ambriz - Externa boni Levocetiriz ine Dihydrochlo ride 5 MG oral Tablet 12-14 00:00: 00 Yes [id number] 5mg Take 1 tablet (5 mg total) by mouth at bedtime Margo Ambriz Levocetiriz ine Dihydrochlo ride 5 MG oral Tablet 12-14 00:00: 00 Yes [id number] 5mg Take 1 tablet (5 mg total) by mouth at bedtime Margo Ambriz - Externa boni Levocetiriz ine Dihydrochlo ride 5 MG oral Tablet 12-14 00:00: 00 Yes [id number] 5mg Take 1 tablet (5 mg total) by mouth at bedtime Margo Ambriz - Externa boni Levocetiriz ine Dihydrochlo ride 5 MG oral Tablet 12-14 00:00: 00 Yes [id number] 5mg Take 1 tablet (5 mg total) by mouth at bedtime Margo Amb[facility] - Externa boni Levocetiriz ine Dihydrochlo ride 5 MG oral Tablet 12-14 00:00: 00 Yes [id number] 5mg Take 1 tablet (5 mg total) by mouth at bedtime Margo Amb[facility] - Externa boni Levocetiriz ine Dihydrochlo ride 5 MG oral Tablet 12-14 00:00: 00 04-18 00:00 :00 No [id number] 5mg Take 1 tablet (5 mg total) by mouth at bedtime Margo Ambriz - Externa boni Zioptan 0.0015 % ophthalmic Solution 2021-0 3-04 00:00: 00 Yes INSTILL ONE (1) DROP INTO THE AFFECTED EYE BEFORE BEDTIME. Margo Ambriz Zioptan 0.0015 % ophthalmic Solution 10-27 00:00: 00 Yes INSTILL ONE (1) DROP INTO THE AFFECTED EYE BEFORE BEDTIME. Margo Ambriz Zioptan 0.0015 % ophthalmic Solution 10-27 00:00: 00 Yes INSTILL ONE (1) DROP INTO THE AFFECTED EYE BEFORE BEDTIME. Margo Seshadiamita FLUTICASONE PROPIONATE, NASAL, 50 MCG/ACT nasal Suspension 2019-08 00:00: 00 Yes [id number] SHAKE LIQUID AND USE 2 SPRAYS IN EACH NOSTRIL EVERY DAY Margo Ambriz FLUTICASONE PROPIONATE, NASAL, 50 MCG/ACT nasal Suspension 2019-08 00:00: 00 Yes [id number] SHAKE LIQUID AND USE 2 SPRAYS IN EACH NOSTRIL EVERY DAY Margodexter Ambriz FLUTICASONE PROPIONATE, NASAL, 50 MCG/ACT nasal Suspension 2019-08 00:00: 00 Yes [id number] SHAKE LIQUID AND USE 2 SPRAYS IN EACH NOSTRIL EVERY DAY Margodexter Ambriz FLUTICASONE PROPIONATE, NASAL, 50 MCG/ACT nasal Suspension 2019-08 00:00: 00 Yes [id number] SHAKE LIQUID AND USE 2 SPRAYS IN EACH NOSTRIL EVERY DAY Margo Ambriz FLUTICASONE PROPIONATE, NASAL, 50 MCG/ACT nasal Suspension 2019-08 00:00: 00 Yes [id number] SHAKE LIQUID AND USE 2 SPRAYS IN EACH NOSTRIL EVERY DAY Margodexter Ambriz FLUTICASONE PROPIONATE, NASAL, 50 MCG/ACT nasal Suspension 2019-08 00:00: 00 Yes [id number] SHAKE LIQUID AND USE 2 SPRAYS IN EACH NOSTRIL EVERY DAY Margodexter Ambriz FLUTICASONE PROPIONATE, NASAL, 50 MCG/ACT nasal Suspension 2019-08 00:00: 00 10-02 00:00 :00 No [id number] SHAKE LIQUID AND USE 2 SPRAYS IN EACH NOSTRIL EVERY DAY Margo Ambriz Ciclopirox 8 % apply externally Solution 2019-08 020 00:00: 00 Yes [id number] Apply qday to affected nails Margo Ambriz Ciclopirox 8 % apply externally Solution 2020-1 0-20 00:00: 00 Yes [id number] Apply qday to affected nails Margo Ambriz Ciclopirox 8 % apply externally Solution 2019-1 0-20 00:00: 00 Yes [id number] Apply qday to affected nails Margo Ambriz Ciclopirox 8 % apply externally Solution 2019-08 0-20 00:00: 00 Yes [id number] Apply qday to affected nails Margo Ambriz Ciclopirox 8 % apply externally Solution 2019- 0-20 00:00: 00 Yes [id number] Apply qday to affected nails Margo Ambriz Ciclopirox 8 % apply externally Solution 2019-08 0-20 00:00: 00 Yes [id number] Apply qday to affected nails Margo Ambriz Ciclopirox 8 % apply externally Solution 2019-08 0-20 00:00: 00 Yes [id number] Apply qday to affected nails Margo Ambriz Ciclopirox 8 % apply externally Solution 2019-08 0-20 00:00: 00 Yes [id number] Apply qday to affected nails Margo Ambriz Montelukast (SINGULAIR) 10 MG oral Tab tablet 05-18 00:00: 00 Yes [id number] TAKE 1 TABLET BY MOUTH EVERY DAY AT 5PM FOR CHRONIC RHINITIS Margo Ambriz Metoprolol Tartrate 25 MG oral Tab 05-18 00:00: 00 Yes [id number] 25mg Take 1 tablet (25 mg total) by mouth 2 times daily Margo Ambriz Montelukast (SINGULAIR) 10 MG oral Tab tablet 05-18 00:00: 00 Yes [id number] TAKE 1 TABLET BY MOUTH EVERY DAY AT 5PM FOR CHRONIC RHINITIS Margo Ambriz Metoprolol Tartrate 25 MG oral Tab 05-18 00:00: 00 Yes [id number] 25mg Take 1 tablet (25 mg total) by mouth 2 times daily Margo Ambriz Lovastatin 40 MG oral Tab 05-18 00:00: 00 Yes [id number] 40mg Take 1 tablet (40 mg total) by mouth nightly Margodexter Ambriz Trazodone HCl 100 MG oral Tab 01-27 00:00: 00 06-29 00:00 :00 No [id number] 150mg Take 1.5 tablets (150 mg total) by mouth nightly Margo shadiamita Hydrocortis one 2.5 % apply externally Ointment 03-30 00:00: 00 Yes [id number] Apply BID sparingly to rash/itchy areas face/folds Mon-fri PRN. Margo Ambriz Calcipotrie ne 0.005 % apply externally Cream 03-30 00:00: 00 Yes [id number] Apply sparingly BID to rash Sat/Sun prn. Margo Royamita Hydrocortis one 2.5 % apply externally Ointment 03-30 00:00: 00 Yes [id number] Apply BID sparingly to rash/itchy areas face/folds Mon-fri PRN. Margo Ambriz Calcipotrie ne 0.005 % apply externally Cream 03-30 00:00: 00 Yes [id number] Apply sparingly BID to rash Sat/Sun prn. Margo Royamita Hydrocortis one 2.5 % apply externally Ointment 03-30 00:00: 00 Yes [id number] Apply BID sparingly to rash/itchy areas face/folds Mon-fri PRN. Margo Ambriz Calcipotrie ne 0.005 % apply externally Cream 03-30 00:00: 00 Yes [id number] Apply sparingly BID to rash Sat/Sun prn. Margo Ambriz Hydrocortis one 2.5 % apply externally Ointment 03-30 00:00: 00 Yes [id number] Apply BID sparingly to rash/itchy areas face/folds Mon-fri PRN. Margo Ambriz Calcipotrie ne 0.005 % apply externally Cream 03-30 00:00: 00 Yes [id number] Apply sparingly BID to rash Sat/Sun prn. Margo Ambriz Hydrocortis one 2.5 % apply externally Ointment 03-30 00:00: 00 Yes [id number] Apply BID sparingly to rash/itchy areas face/folds Mon-fri PRN. Margo Ambriz Calcipotrie ne 0.005 % apply externally Cream 03-30 00:00: 00 Yes [id number] Apply sparingly BID to rash Sat/Sun prn. Margo Royamita Hydrocortis one 2.5 % apply externally Ointment 03-30 00:00: 00 Yes [id number] Apply BID sparingly to rash/itchy areas face/folds Mon-fri PRN. Margo Royamita Calcipotrie ne 0.005 % apply externally Cream 03-30 00:00: 00 Yes [id number] Apply sparingly BID to rash Sat/Sun prn. Margo Royamita Hydrocortis one 2.5 % apply externally Ointment 03-30 00:00: 00 Yes [id number] Apply BID sparingly to rash/itchy areas face/folds Mon-fri PRN. Margo Royamita Calcipotrie ne 0.005 % apply externally Cream 03-30 00:00: 00 Yes [id number] Apply sparingly BID to rash Sat/Sun prn. Margo Royamita Hydrocortis one 2.5 % apply externally Ointment 03-30 00:00: 00 12-12 00:00 :00 No [id number] Apply BID sparingly to rash/itchy areas face/folds Mon-fri PRN. Margo Royamita Calcipotrie ne 0.005 % apply externally Cream 03-30 00:00: 00 12-12 00:00 :00 No [id number] Apply sparingly BID to rash Sat/Sun prn. Margo Ambriz Immunizations Ordered Immunization Name Filled Immunization Name Date Status Comments Source RSV, unspecified formulation 2023-04-23 00:00:00 Completed Margo Ambriz - Oswald Influenza Virus Vaccine, Quadrivalent, High Dose, Age 65 And Up 2023-04-23 00:00:00 Completed Margo Priest External COVID-19 BIVALENT VACCINE A 2022-06-13 00:00:00 Completed Margo Ambriz - External COVID-19 BIVALENT VACCINE 2022-06-13 00:00:00 Completed Margo Ambriz - External COVID-19 BIVALENT VACCINE MODERNA 2022-06-13 00:00:00 Completed Margo Ambriz - External COVID-19 BIVALENT BOOSTER VACCINE A 2022-06-13 00:00:00 Completed Margo Seybold - External COVID-19 BIVALENT BOOSTER VACCINE MODERNA 2022-06-13 00:00:00 Completed Margo Seybold - External COVID-19 BIVALENT BOOSTER VACCINE MODERNA 2022-06-13 00:00:00 Completed Margo Seybold - External COVID-19 BIVALENT BOOSTER VACCINE MODERNA 2022-06-13 00:00:00 Completed Margo Seybold - External COVID-19 BIVALENT VACCINE MODERNA 2022-06-13 00:00:00 Completed Margo Seybold - External COVID-19 BIVALENT VACCINE MODERNA 2022-06-13 00:00:00 Completed Margo Seybold - External Influenza Virus Vaccine, Quadrivalent, High Dose, Age 65 And Up 2022-06-06 00:00:00 Completed Margo Seybold - External Influenza Virus Vaccine, Quadrivalent, High Dose, Age 65 And Up 2022-06-06 00:00:00 Completed Margo Seybold - External Influenza Virus Vaccine, Quadrivalent, High Dose, Age 65 And Up 2022-06-06 00:00:00 Completed Margo Seybold - External Influenza Virus Vaccine, Quadrivalent, High Dose, Age 65 And Up 2022-06-06 00:00:00 Completed Margo Seybold - External Influenza Virus Vaccine, Quadrivalent, High Dose, Age 65 And Up 2022-06-06 00:00:00 Completed Margo Seybold - External Influenza Virus Vaccine, Quadrivalent, High Dose, Age 65 And Up 2022-06-06 00:00:00 Completed Margo Seybold - External Influenza Virus Vaccine, Quadrivalent, High Dose, Age 65 And Up 2022-06-06 00:00:00 Completed Margo Seybold - External Influenza Virus Vaccine, Quadrivalent, High Dose, Age 65 And Up 2022-06-06 00:00:00 Completed Margo Seybold - External Influenza Virus Vaccine, Quadrivalent, High Dose, Age 65 And Up 2022-06-06 00:00:00 Completed Margo Seybold - External Covid-19 Vaccine Moderna (Spikevax), Mrna-lnp, [employer], Pf 2022-02-13 00:00:00 Completed Margo Seybold - External Covid-19 Vaccine Moderna (Spikevax), Mrna-lnp, [employer], Pf 2022-02-13 00:00:00 Completed Margo Seybold - External Covid-19 Vaccine Moderna (Spikevax), Mrna-lnp, [employer], Pf 2022-02-13 00:00:00 Completed Margo Seybold - External Covid-19 Vaccine Moderna (Spikevax), Mrna-lnp, [employer], Pf 2022-02-13 00:00:00 Completed Margo Seybold - External Covid-19 Vaccine Moderna (Spikevax), Mrna-lnp, [employer], Pf 2022-02-13 00:00:00 Completed Margo Seybold - External Covid-19 Vaccine Moderna (Spikevax), Mrna-lnp, [employer], Pf 2022-02-13 00:00:00 Completed Margo Seybold - External Covid-19 Vaccine Moderna (Spikevax), Mrna-lnp, [employer], Pf 2022-02-13 00:00:00 Completed Margo Seybold - External Covid-19 Vaccine Moderna (Spikevax), Mrna-lnp, [employer], Pf 2022-02-13 00:00:00 Completed Margo Seybold - External Covid-19 Vaccine Moderna (Spikevax), Mrna-lnp, [employer], Pf 2022-02-13 00:00:00 Completed Margo Seybold - External Covid-19 Vaccine Moderna (Spikevax), Mrna-lnp, [employer], Pf 2021-04-27 00:00:00 Completed Margo Seybold - External Covid-19 Vaccine Moderna (Spikevax), Mrna-lnp, [employer], Pf 2021-04-27 00:00:00 Completed Margo Seybold - External Covid-19 Vaccine Moderna (Spikevax), Mrna-lnp, [employer], Pf 2021-04-27 00:00:00 Completed Margo Seybold - External Covid-19 Vaccine (Moderna), Mrna-lnp, [employer], Pf, 100 Mcg/0.5ml,IM 2021-04-27 00:00:00 Completed Margo Seybold Covid-19 Vaccine (Moderna), Mrna-lnp, [employer], Pf, 100 Mcg/0.5ml,IM 2021-04-27 00:00:00 Completed Margo Seybold Covid-19 Vaccine (Moderna), Mrna-lnp, [employer], Pf, 100 Mcg/0.5ml,IM 2021-04-27 00:00:00 Completed Margo Seybold Covid-19 Vaccine (Moderna), Mrna-lnp, [employer], Pf, 100 Mcg/0.5ml,IM 2021-04-27 00:00:00 Completed Margo Seybold Covid-19 Vaccine (Moderna), Mrna-lnp, [employer], Pf, 100 Mcg/0.5ml,IM 2021-04-27 00:00:00 Completed Margo Seybold Covid-19 Vaccine Moderna (Spikevax), Mrna-lnp, [employer], Pf 2021-04-27 00:00:00 Completed Margo Seybold Covid-19 Vaccine Moderna (Spikevax), Mrna-lnp, [employer], Pf 2021-04-27 00:00:00 Completed Margo Seybold Covid-19 Vaccine Moderna (Spikevax), Mrna-lnp, [employer], Pf 2021-04-27 00:00:00 Completed Margo Seybold - External Covid-19 Vaccine Moderna (Spikevax), Mrna-lnp, [employer], Pf 2021-04-27 00:00:00 Completed Margo Seybold - External Covid-19 Vaccine Moderna (Spikevax), Mrna-lnp, [employer], Pf 2021-04-27 00:00:00 Completed Margo Seybold - External Covid-19 Vaccine Moderna (Spikevax), Mrna-lnp, [employer], Pf 2021-04-27 00:00:00 Completed Margo Seybold - External Covid-19 Vaccine Moderna (Spikevax), Mrna-lnp, [employer], Pf 2021-04-27 00:00:00 Completed Margo Seybold - External Covid-19 Vaccine (Moderna), Mrna-lnp, [employer], Pf, 100 Mcg/0.5ml,IM 2021-04-27 00:00:00 Completed Margo Seybold Covid-19 Vaccine Moderna (Spikevax), Mrna-lnp, [employer], Pf 2021-04-27 00:00:00 Completed Margo Seybold - External Influenza Virus Vaccine, Quadrivalent, High Dose, Age 65 And Up 2021-04-25 00:00:00 Completed Margo Seybold - External Influenza Virus Vaccine, Quadrivalent, High Dose, Age 65 And Up 2021-04-25 00:00:00 Completed Margo Seybold - External Influenza Virus Vaccine, Quadrivalent, High Dose, Age 65 And Up 2021-04-25 00:00:00 Completed Margo Seybold - External Influenza Virus Vaccine, Quadrivalent, High Dose, Age 65 And Up 2021-04-25 00:00:00 Completed Margo Seybold Influenza Virus Vaccine, Quadrivalent, High Dose, Age 65 And Up 2021-04-25 00:00:00 Completed Margo Seybold Influenza Virus Vaccine, Quadrivalent, High Dose, Age 65 And Up 2021-04-25 00:00:00 Completed Margo Seybold Influenza Virus Vaccine, Quadrivalent, High Dose, Age 65 And Up 2021-04-25 00:00:00 Completed Margo Seybold Influenza Virus Vaccine, Quadrivalent, High Dose, Age 65 And Up 2021-04-25 00:00:00 Completed Margo Seybold Influenza Virus Vaccine, Quadrivalent, High Dose, Age 65 And Up 2021-04-25 00:00:00 Completed Margo Seybold Influenza Virus Vaccine, Quadrivalent, High Dose, Age 65 And Up 2021-04-25 00:00:00 Completed Margo Seybold Influenza Virus Vaccine, Quadrivalent, High Dose, Age 65 And Up 2021-04-25 00:00:00 Completed Margo Seybold - External Influenza Virus Vaccine, Quadrivalent, High Dose, Age 65 And Up 2021-04-25 00:00:00 Completed Margo Seybold - External Influenza Virus Vaccine, Quadrivalent, High Dose, Age 65 And Up 2021-04-25 00:00:00 Completed Margo Seybold - External Influenza Virus Vaccine, Quadrivalent, High Dose, Age 65 And Up 2021-04-25 00:00:00 Completed Margo Seybold - External Influenza Virus Vaccine, Quadrivalent, High Dose, Age 65 And Up 2021-04-25 00:00:00 Completed Margo Seybold Influenza Virus Vaccine, Quadrivalent, High Dose, Age 65 And Up 2021-04-25 00:00:00 Completed Margo Seybold - External Influenza Virus Vaccine, Quadrivalent, High Dose, Age 65 And Up 2021-04-25 00:00:00 Completed Margo Seybold - External Covid-19 Vaccine Moderna (Spikevax), Mrna-lnp, [employer], Pf 2020-10-05 00:00:00 Completed Margo Seybold - External Covid-19 Vaccine Moderna (Spikevax), Mrna-lnp, [employer], Pf 2020-10-05 00:00:00 Completed Margo Seybold - External Covid-19 Vaccine Moderna (Spikevax), Mrna-lnp, [employer], Pf 2020-10-05 00:00:00 Completed Margo Seybold - External Covid-19 Vaccine (Moderna), Mrna-lnp, [employer], Pf, 100 Mcg/0.5ml,IM 2020-10-05 00:00:00 Completed Margo Seybold Covid-19 Vaccine (Moderna), Mrna-lnp, [employer], Pf, 100 Mcg/0.5ml,IM 2020-10-05 00:00:00 Completed Margo Seybold Covid-19 Vaccine (Moderna), Mrna-lnp, [employer], Pf, 100 Mcg/0.5ml,IM 2020-10-05 00:00:00 Completed Margo Seybold Covid-19 Vaccine (Moderna), Mrna-lnp, [employer], Pf, 100 Mcg/0.5ml,IM 2020-10-05 00:00:00 Completed Margo Seybold Covid-19 Vaccine (Moderna), Mrna-lnp, [employer], Pf, 100 Mcg/0.5ml,IM 2020-10-05 00:00:00 Completed Margo Seybold Covid-19 Vaccine Moderna (Spikevax), Mrna-lnp, [employer], Pf 2020-10-05 00:00:00 Completed Margo Seybold Covid-19 Vaccine Moderna (Spikevax), Mrna-lnp, [employer], Pf 2020-10-05 00:00:00 Completed Margo Vasquezybold Covid-19 Vaccine Moderna (Spikevax), Mrna-lnp, [employer], Pf 2020-10-05 00:00:00 Completed Margo Seybold - External Covid-19 Vaccine Moderna (Spikevax), Mrna-lnp, [employer], Pf 2020-10-05 00:00:00 Completed Margo Seybold - External Covid-19 Vaccine Moderna (Spikevax), Mrna-lnp, [employer], Pf 2020-10-05 00:00:00 Completed Margo Seybold - External Covid-19 Vaccine Moderna (Spikevax), Mrna-lnp, [employer], Pf 2020-10-05 00:00:00 Completed Margo Seybold - External Covid-19 Vaccine (Moderna), Mrna-lnp, [employer], Pf, 100 Mcg/0.5ml,IM 2020-10-05 00:00:00 Completed Margo Seybold Covid-19 Vaccine Moderna (Spikevax), Mrna-lnp, [employer], Pf 2020-10-05 00:00:00 Completed Margo Seybold - External Covid-19 Vaccine Moderna (Spikevax), Mrna-lnp, [employer], Pf 2020-10-05 00:00:00 Completed Margo Seybold - External Covid-19 Vaccine Moderna (Spikevax), Mrna-lnp, [employer], Pf 2020-09-07 00:00:00 Completed Margo Seybold - External Covid-19 Vaccine Moderna (Spikevax), Mrna-lnp, [employer], Pf 2020-09-07 00:00:00 Completed Margo Seybold - External Covid-19 Vaccine Moderna (Spikevax), Mrna-lnp, [employer], Pf 2020-09-07 00:00:00 Completed Margo Seybold - External Covid-19 Vaccine (Moderna), Mrna-lnp, [employer], Pf, 100 Mcg/0.5ml,IM 2020-09-07 00:00:00 Completed Margo Seybold Covid-19 Vaccine (Moderna), Mrna-lnp, [employer], Pf, 100 Mcg/0.5ml,IM 2020-09-07 00:00:00 Completed Margo Seybold Covid-19 Vaccine (Moderna), Mrna-lnp, [employer], Pf, 100 Mcg/0.5ml,IM 2020-09-07 00:00:00 Completed Margo Seybold Covid-19 Vaccine (Moderna), Mrna-lnp, [employer], Pf, 100 Mcg/0.5ml,IM 2020-09-07 00:00:00 Completed Margo Seybold Covid-19 Vaccine (Moderna), Mrna-lnp, [employer], Pf, 100 Mcg/0.5ml,IM 2020-09-07 00:00:00 Completed Margo Seybold Covid-19 Vaccine Moderna (Spikevax), Mrna-lnp, [employer], Pf 2020-09-07 00:00:00 Completed Margo Seybold Covid-19 Vaccine Moderna (Spikevax), Mrna-lnp, [employer], Pf 2020-09-07 00:00:00 Completed Margo Seybold Covid-19 Vaccine Moderna (Spikevax), Mrna-lnp, [employer], Pf 2020-09-07 00:00:00 Completed Margo Seybold - External Covid-19 Vaccine Moderna (Spikevax), Mrna-lnp, [employer], Pf 2020-09-07 00:00:00 Completed Margo Seybold - External Covid-19 Vaccine Moderna (Spikevax), Mrna-lnp, [employer], Pf 2020-09-07 00:00:00 Completed Margo Seybold - External Covid-19 Vaccine Moderna (Spikevax), Mrna-lnp, [employer], Pf 2020-09-07 00:00:00 Completed Margo Seybold - External Covid-19 Vaccine (Moderna), Mrna-lnp, [employer], Pf, 100 Mcg/0.5ml,IM 2020-09-07 00:00:00 Completed Margo Seybold Covid-19 Vaccine Moderna (Spikevax), Mrna-lnp, [employer], Pf 2020-09-07 00:00:00 Completed Margo Seybold - External Covid-19 Vaccine Moderna (Spikevax), Mrna-lnp, [employer], Pf 2020-09-07 00:00:00 Completed Margo Seybold - External Influenza Virus Vaccine, High Dose, Age 65 And Up 2020-04-30 00:00:00 Completed Margo Seybold - External Influenza Virus Vaccine, High Dose, Age 65 And Up 2020-04-30 00:00:00 Completed Margo Seybold - External Influenza Virus Vaccine, High Dose, Age 65 And Up 2020-04-30 00:00:00 Completed Margo Seybold - External Influenza Virus Vaccine, High Dose, Age 65 And Up 2020-04-30 00:00:00 Completed Margo Seybold Influenza Virus Vaccine, High Dose, Age 65 And Up 2020-04-30 00:00:00 Completed Margo Seybold Influenza Virus Vaccine, High Dose, Age 65 And Up 2020-04-30 00:00:00 Completed Margo Seybold Influenza Virus Vaccine, High Dose, Age 65 And Up 2020-04-30 00:00:00 Completed Margo Seybold Influenza Virus Vaccine, High Dose, Age 65 And Up 2020-04-30 00:00:00 Completed Margo Seybold Influenza Virus Vaccine, High Dose, Age 65 And Up 2020-04-30 00:00:00 Completed Margo Seybold Influenza Virus Vaccine, High Dose, Age 65 And Up 2020-04-30 00:00:00 Completed Margo Seybold Influenza Virus Vaccine, High Dose, Age 65 And Up 2020-04-30 00:00:00 Completed Margo Seybold - External Influenza Virus Vaccine, High Dose, Age 65 And Up 2020-04-30 00:00:00 Completed Margo Seybold - External Influenza Virus Vaccine, High Dose, Age 65 And Up 2020-04-30 00:00:00 Completed Margo Seybold - External Influenza Virus Vaccine, High Dose, Age 65 And Up 2020-04-30 00:00:00 Completed Margo Seybold - External Influenza Virus Vaccine, High Dose, Age 65 And Up 2020-04-30 00:00:00 Completed Margo Seybold Influenza Virus Vaccine, High Dose, Age 65 And Up 2020-04-30 00:00:00 Completed Margo Seybold - External Influenza Virus Vaccine, High Dose, Age 65 And Up 2020-04-30 00:00:00 Completed Margo Seybold - External Influenza Virus Vaccine,Derived from Cell Culture 2019-05-09 00:00:00 Completed Margo Seybold - External Influenza Virus Vaccine,Derived from Cell Culture 2019-05-09 00:00:00 Completed Margo Seybold - External Influenza Virus Vaccine,Derived from Cell Culture 2019-05-09 00:00:00 Completed Margo Seybold - External Influenza Virus Vaccine,Derived from Cell Culture 2019-05-09 00:00:00 Completed Margo Seybold Influenza Virus Vaccine,Derived from Cell Culture 2019-05-09 00:00:00 Completed Margo Seybold Influenza Virus Vaccine,Derived from Cell Culture 2019-05-09 00:00:00 Completed Margo Seybold Influenza Virus Vaccine,Derived from Cell Culture 2019-05-09 00:00:00 Completed Margo Seybold Influenza Virus Vaccine,Derived from Cell Culture 2019-05-09 00:00:00 Completed Margo Seybold Influenza Virus Vaccine,Derived from Cell Culture 2019-05-09 00:00:00 Completed Margo Seybold Influenza Virus Vaccine,Derived from Cell Culture 2019-05-09 00:00:00 Completed Margo Seybold Influenza Virus Vaccine,Derived from Cell Culture 2019-05-09 00:00:00 Completed Margo Seybold - External Influenza Virus Vaccine,Derived from Cell Culture 2019-05-09 00:00:00 Completed Margo Seybold - External Influenza Virus Vaccine,Derived from Cell Culture 2019-05-09 00:00:00 Completed Margo Seybold - External Influenza Virus Vaccine,Derived from Cell Culture 2019-05-09 00:00:00 Completed Margo Seybold - External Influenza Virus Vaccine,Derived from Cell Culture 2019-05-09 00:00:00 Completed Margo Seybold Influenza Virus Vaccine,Derived from Cell Culture 2019-05-09 00:00:00 Completed Margo Seybold - External Influenza Virus Vaccine,Derived from Cell Culture 2019-05-09 00:00:00 Completed Margo Seybold - External Influenza Virus Vaccine, High Dose, Age 65 And Up 2018-04-09 00:00:00 Completed Margo Seybold - External Influenza Virus Vaccine, High Dose, Age 65 And Up 2018-04-09 00:00:00 Completed Margo Seybold - External Influenza Virus Vaccine, High Dose, Age 65 And Up 2018-04-09 00:00:00 Completed Margo Seybold Influenza Virus Vaccine, High Dose, Age 65 And Up 2018-04-09 00:00:00 Completed Margo Seybold Influenza Virus Vaccine, High Dose, Age 65 And Up 2018-04-09 00:00:00 Completed Margo Seybold Influenza Virus Vaccine, High Dose, Age 65 And Up 2018-04-09 00:00:00 Completed Margo Seybold Influenza Virus Vaccine, High Dose, Age 65 And Up 2018-04-09 00:00:00 Completed Margo Seybold Influenza Virus Vaccine, High Dose, Age 65 And Up 2018-04-09 00:00:00 Completed Margo Seybold Influenza Virus Vaccine, High Dose, Age 65 And Up 2018-04-09 00:00:00 Completed Margo Seybold Influenza Virus Vaccine, High Dose, Age 65 And Up 2018-04-09 00:00:00 Completed Margo Seybold - External Influenza Virus Vaccine, High Dose, Age 65 And Up 2018-04-09 00:00:00 Completed Margo Seybold - External Influenza Virus Vaccine, High Dose, Age 65 And Up 2018-04-09 00:00:00 Completed Margo Seybold Influenza Virus Vaccine, High Dose, Age 65 And Up 2018-04-09 00:00:00 Completed Margo Seybold - External Influenza Virus Vaccine, High Dose, Age 65 And Up 2018-04-09 00:00:00 Completed Margo Seybold - External Influenza Virus Vaccine, High Dose, Age 65 And Up 2018-04-09 00:00:00 Completed Margo Seybold - External Influenza Virus Vaccine, High Dose, Age 65 And Up 2018-04-09 00:00:00 Completed Margo Seybold - External Influenza Virus Vaccine, High Dose, Age 65 And Up 2018-04-09 00:00:00 Completed Margo Seybold - External Shingles IM (Shingrix) 2018-02-12 00:00:00 Completed Margo Seybold - External Shingles IM (Shingrix) 2018-02-12 00:00:00 Completed Margo Seybold - External Shingles IM (Shingrix) 2018-02-12 00:00:00 Completed Margo Seybold - External Shingles IM (Shingrix) 2018-02-12 00:00:00 Completed Margo Seybold Shingles IM (Shingrix) 2018-02-12 00:00:00 Completed Margo Seybold Shingles IM (Shingrix) 2018-02-12 00:00:00 Completed Margo Seybold Shingles IM (Shingrix) 2018-02-12 00:00:00 Completed Margo Seybold Shingles IM (Shingrix) 2018-02-12 00:00:00 Completed Margo Seybold Shingles IM (Shingrix) 2018-02-12 00:00:00 Completed Margo Seybold Shingles IM (Shingrix) 2018-02-12 00:00:00 Completed Margo Seybold Shingles IM (Shingrix) 2018-02-12 00:00:00 Completed Margo Seybold - External Shingles IM (Shingrix) 2018-02-12 00:00:00 Completed Margo Seybold - External Shingles IM (Shingrix) 2018-02-12 00:00:00 Completed Margo Seybold - External Shingles IM (Shingrix) 2018-02-12 00:00:00 Completed Margo Seybold - External Shingles IM (Shingrix) 2018-02-12 00:00:00 Completed Margo Seybold Shingles IM (Shingrix) 2018-02-12 00:00:00 Completed Margo Seybold - External Shingles IM (Shingrix) 2018-02-12 00:00:00 Completed Margo Seybold - External Shingles IM (Shingrix) 2017-12-08 00:00:00 Completed Margo Seybold - External Shingles IM (Shingrix) 2017-12-08 00:00:00 Completed Margo Seybold - External Shingles IM (Shingrix) 2017-12-08 00:00:00 Completed Margo Seybold - External Shingles IM (Shingrix) 2017-12-08 00:00:00 Completed Margo Seybold Shingles IM (Shingrix) 2017-12-08 00:00:00 Completed Margo Seybold Shingles IM (Shingrix) 2017-12-08 00:00:00 Completed Margo Seybold Shingles IM (Shingrix) 2017-12-08 00:00:00 Completed Margo Seybold Shingles IM (Shingrix) 2017-12-08 00:00:00 Completed Margo Seybold Shingles IM (Shingrix) 2017-12-08 00:00:00 Completed Margo Seybold Shingles IM (Shingrix) 2017-12-08 00:00:00 Completed Margo Seybold Shingles IM (Shingrix) 2017-12-08 00:00:00 Completed Margo Seybold - External Shingles IM (Shingrix) 2017-12-08 00:00:00 Completed Margo Seybold - External Shingles IM (Shingrix) 2017-12-08 00:00:00 Completed Margo Seybold - External Shingles IM (Shingrix) 2017-12-08 00:00:00 Completed Margo Seybold - External Shingles IM (Shingrix) 2017-12-08 00:00:00 Completed Margo Seybold Shingles IM (Shingrix) 2017-12-08 00:00:00 Completed Margo Seybold - External Shingles IM (Shingrix) 2017-12-08 00:00:00 Completed Margo Seybold - External Influenza Virus Vaccine, High Dose, Age 65 And Up 2017-04-21 00:00:00 Completed Margo Seybold - External Influenza Virus Vaccine, High Dose, Age 65 And Up 2017-04-21 00:00:00 Completed Margo Seybold - External Influenza Virus Vaccine, High Dose, Age 65 And Up 2017-04-21 00:00:00 Completed Margo Seybold - External Influenza Virus Vaccine, High Dose, Age 65 And Up 2017-04-21 00:00:00 Completed Margo Seybold Influenza Virus Vaccine, High Dose, Age 65 And Up 2017-04-21 00:00:00 Completed Margo Seybold Influenza Virus Vaccine, High Dose, Age 65 And Up 2017-04-21 00:00:00 Completed Margo Seybold Influenza Virus Vaccine, High Dose, Age 65 And Up 2017-04-21 00:00:00 Completed Margo Seybold Influenza Virus Vaccine, High Dose, Age 65 And Up 2017-04-21 00:00:00 Completed Margo Seybold Influenza Virus Vaccine, High Dose, Age 65 And Up 2017-04-21 00:00:00 Completed Margo Seybold Influenza Virus Vaccine, High Dose, Age 65 And Up 2017-04-21 00:00:00 Completed Margo Seybold Influenza Virus Vaccine, High Dose, Age 65 And Up 2017-04-21 00:00:00 Completed Margo Seybold - External Influenza Virus Vaccine, High Dose, Age 65 And Up 2017-04-21 00:00:00 Completed Margo Seybold - External Influenza Virus Vaccine, High Dose, Age 65 And Up 2017-04-21 00:00:00 Completed Margo Seybold - External Influenza Virus Vaccine, High Dose, Age 65 And Up 2017-04-21 00:00:00 Completed Margo Seybold - External Influenza Virus Vaccine, High Dose, Age 65 And Up 2017-04-21 00:00:00 Completed Margo Seybold Influenza Virus Vaccine, High Dose, Age 65 And Up 2017-04-21 00:00:00 Completed Margo Seybold - External Influenza Virus Vaccine, High Dose, Age 65 And Up 2017-04-21 00:00:00 Completed Margo Seybold - External Influenza Virus Vaccine, High Dose, Age 65 And Up 2016-04-22 00:00:00 Completed Margo Seybold - External Influenza Virus Vaccine, High Dose, Age 65 And Up 2016-04-22 00:00:00 Completed Margo Seybold - External Influenza Virus Vaccine, High Dose, Age 65 And Up 2016-04-22 00:00:00 Completed Margo Seybold - External Influenza Virus Vaccine, High Dose, Age 65 And Up 2016-04-22 00:00:00 Completed Margo Seybold Influenza Virus Vaccine, High Dose, Age 65 And Up 2016-04-22 00:00:00 Completed Margo Seybold Influenza Virus Vaccine, High Dose, Age 65 And Up 2016-04-22 00:00:00 Completed Margo Seybold Influenza Virus Vaccine, High Dose, Age 65 And Up 2016-04-22 00:00:00 Completed Margo Seybold Influenza Virus Vaccine, High Dose, Age 65 And Up 2016-04-22 00:00:00 Completed Margo Seybold Influenza Virus Vaccine, High Dose, Age 65 And Up 2016-04-22 00:00:00 Completed Margo Seybold Influenza Virus Vaccine, High Dose, Age 65 And Up 2016-04-22 00:00:00 Completed Margo Seybold Influenza Virus Vaccine, High Dose, Age 65 And Up 2016-04-22 00:00:00 Completed Margo Seybold - External Influenza Virus Vaccine, High Dose, Age 65 And Up 2016-04-22 00:00:00 Completed Margo Seybold - External Influenza Virus Vaccine, High Dose, Age 65 And Up 2016-04-22 00:00:00 Completed Margo Seybold - External Influenza Virus Vaccine, High Dose, Age 65 And Up 2016-04-22 00:00:00 Completed Margo Seybold Influenza Virus Vaccine, High Dose, Age 65 And Up 2016-04-22 00:00:00 Completed Margo Seybold - External Influenza Virus Vaccine, High Dose, Age 65 And Up 2016-04-22 00:00:00 Completed Margo Seybold - External Influenza Virus Vaccine, High Dose, Age 65 And Up 2016-04-22 00:00:00 Completed Margo Seybold - External Influenza Virus Vaccine, High Dose, Age 65 And Up 2016-04-14 00:00:00 Completed Margo Seybold - External Influenza Virus Vaccine, High Dose, Age 65 And Up 2016-04-14 00:00:00 Completed Margo Seybold - External Influenza Virus Vaccine, High Dose, Age 65 And Up 2016-04-14 00:00:00 Completed Margo Seybold - External Influenza Virus Vaccine, High Dose, Age 65 And Up 2016-04-14 00:00:00 Completed Margo Seybold Influenza Virus Vaccine, High Dose, Age 65 And Up 2016-04-14 00:00:00 Completed Margo Seybold Influenza Virus Vaccine, High Dose, Age 65 And Up 2016-04-14 00:00:00 Completed Margo Seybold Influenza Virus Vaccine, High Dose, Age 65 And Up 2016-04-14 00:00:00 Completed Margo Seybold Influenza Virus Vaccine, High Dose, Age 65 And Up 2016-04-14 00:00:00 Completed Margo Seybold Influenza Virus Vaccine, High Dose, Age 65 And Up 2016-04-14 00:00:00 Completed Margo Seybold Influenza Virus Vaccine, High Dose, Age 65 And Up 2016-04-14 00:00:00 Completed Margo Seybold Influenza Virus Vaccine, High Dose, Age 65 And Up 2016-04-14 00:00:00 Completed Margo Seybold - External Influenza Virus Vaccine, High Dose, Age 65 And Up 2016-04-14 00:00:00 Completed Margo Seybold - External Influenza Virus Vaccine, High Dose, Age 65 And Up 2016-04-14 00:00:00 Completed Margo Seybold - External Influenza Virus Vaccine, High Dose, Age 65 And Up 2016-04-14 00:00:00 Completed Margo Seybold - External Influenza Virus Vaccine, High Dose, Age 65 And Up 2016-04-14 00:00:00 Completed Margo Seybold Influenza Virus Vaccine, High Dose, Age 65 And Up 2016-04-14 00:00:00 Completed Margo Seybold - External Influenza Virus Vaccine, High Dose, Age 65 And Up 2016-04-14 00:00:00 Completed Margo Seybold - External Td- Tetanus & Diphtheria Vaccine (age 7+ years) 2016-02-08 00:00:00 Completed Margo Seybold - External Td- Tetanus & Diphtheria Vaccine (age 7+ years) 2016-02-08 00:00:00 Completed Margo Seybold - External Td- Tetanus & Diphtheria Vaccine (age 7+ years) 2016-02-08 00:00:00 Completed Margo Seybold - External Td- Tetanus & Diphtheria Vaccine (age 7+ years) 2016-02-08 00:00:00 Completed Margo Seybold Td- Tetanus & Diphtheria Vaccine (age 7+ years) 2016-02-08 00:00:00 Completed Margo Seybold Td- Tetanus & Diphtheria Vaccine (age 7+ years) 2016-02-08 00:00:00 Completed Margo Seybold Td- Tetanus & Diphtheria Vaccine (age 7+ years) 2016-02-08 00:00:00 Completed Margo Seybold Td- Tetanus & Diphtheria Vaccine (age 7+ years) 2016-02-08 00:00:00 Completed Margo Seybold Td- Tetanus & Diphtheria Vaccine (age 7+ years) 2016-02-08 00:00:00 Completed Margo Seybold Td- Tetanus & Diphtheria Vaccine (age 7+ years) 2016-02-08 00:00:00 Completed Margo Seybold Td- Tetanus & Diphtheria Vaccine (age 7+ years) 2016-02-08 00:00:00 Completed Margo Seybold - External Td- Tetanus & Diphtheria Vaccine (age 7+ years) 2016-02-08 00:00:00 Completed Margo Seybold - External Td- Tetanus & Diphtheria Vaccine (age 7+ years) 2016-02-08 00:00:00 Completed Margo Seybold - External Td- Tetanus & Diphtheria Vaccine (age 7+ years) 2016-02-08 00:00:00 Completed Margo Seybold Td- Tetanus & Diphtheria Vaccine (age 7+ years) 2016-02-08 00:00:00 Completed Margo Seybold - External Td- Tetanus & Diphtheria Vaccine (age 7+ years) 2016-02-08 00:00:00 Completed Margo Seybold - External Td- Tetanus & Diphtheria Vaccine (age 7+ years) 2016-02-08 00:00:00 Completed Margo Seybold - External Influenza Virus Vaccine, High Dose, Age 65 And Up 2015-05-01 00:00:00 Completed Margo Seybold - External Influenza Virus Vaccine, High Dose, Age 65 And Up 2015-05-01 00:00:00 Completed Margo Seybold - External Influenza Virus Vaccine, High Dose, Age 65 And Up 2015-05-01 00:00:00 Completed Margo Seybold Influenza Virus Vaccine, High Dose, Age 65 And Up 2015-05-01 00:00:00 Completed Margo Seybold Influenza Virus Vaccine, High Dose, Age 65 And Up 2015-05-01 00:00:00 Completed Margo Seybold Influenza Virus Vaccine, High Dose, Age 65 And Up 2015-05-01 00:00:00 Completed Margo Seybold Influenza Virus Vaccine, High Dose, Age 65 And Up 2015-05-01 00:00:00 Completed Margo Seybold Influenza Virus Vaccine, High Dose, Age 65 And Up 2015-05-01 00:00:00 Completed Margo Seybold Influenza Virus Vaccine, High Dose, Age 65 And Up 2015-05-01 00:00:00 Completed Margo Seybold Influenza Virus Vaccine, High Dose, Age 65 And Up 2015-05-01 00:00:00 Completed Margo Seybold - External Influenza Virus Vaccine, High Dose, Age 65 And Up 2015-05-01 00:00:00 Completed Margo Seybold - External Influenza Virus Vaccine, High Dose, Age 65 And Up 2015-05-01 00:00:00 Completed Margo Seybold Influenza Virus Vaccine, High Dose, Age 65 And Up 2015-05-01 00:00:00 Completed Margo Seybold - External Influenza Virus Vaccine, High Dose, Age 65 And Up 2015-05-01 00:00:00 Completed Margo Seybold - External Influenza Virus Vaccine, High Dose, Age 65 And Up 2015-05-01 00:00:00 Completed Margo Seybold - External Influenza Virus Vaccine, High Dose, Age 65 And Up 2015-05-01 00:00:00 Completed Margo Seybold - External Influenza Virus Vaccine, High Dose, Age 65 And Up 2015-05-01 00:00:00 Completed Margo Seybold - External Pneumococcal Vaccine, Conjugate 13 2014-11-26 00:00:00 Completed Margo Seybold - External Pneumococcal Vaccine, Conjugate 13 2014-11-26 00:00:00 Completed Margo Seybold - External Pneumococcal Vaccine, Conjugate 13 2014-11-26 00:00:00 Completed Margo Seybold Pneumococcal Vaccine, Conjugate 13 2014-11-26 00:00:00 Completed Margo Seybold Pneumococcal Vaccine, Conjugate 13 2014-11-26 00:00:00 Completed Margo Seybold Pneumococcal Vaccine, Conjugate 13 2014-11-26 00:00:00 Completed Margo Seybold Pneumococcal Vaccine, Conjugate 13 2014-11-26 00:00:00 Completed Margo Seybold Pneumococcal Vaccine, Conjugate 13 2014-11-26 00:00:00 Completed Margo Seybold Pneumococcal Vaccine, Conjugate 13 2014-11-26 00:00:00 Completed Margo Seybold Pneumococcal Vaccine, Conjugate 13 2014-11-26 00:00:00 Completed Margo Seybold - External Pneumococcal Vaccine, Conjugate 13 2014-11-26 00:00:00 Completed Margo Seybold - External Pneumococcal Vaccine, Conjugate 13 2014-11-26 00:00:00 Completed Margo Seybold Pneumococcal Vaccine, Conjugate 13 2014-11-26 00:00:00 Completed Margo Seybold - External Pneumococcal Vaccine, Conjugate 13 2014-11-26 00:00:00 Completed Margo Seybold - External Pneumococcal Vaccine, Conjugate 13 2014-11-26 00:00:00 Completed Margo Seybold - External Pneumococcal Vaccine, Conjugate 13 2014-11-26 00:00:00 Completed Margo Seybold - External Pneumococcal Vaccine, Conjugate 13 2014-11-26 00:00:00 Completed Margo Seybold - External Influenza Virus Vaccine, High Dose, Age 65 And Up 2013-04-30 00:00:00 Completed Margo Seybold - External Influenza Virus Vaccine, High Dose, Age 65 And Up 2013-04-30 00:00:00 Completed Margo Seybold - External Influenza Virus Vaccine, High Dose, Age 65 And Up 2013-04-30 00:00:00 Completed Margo Seybold Influenza Virus Vaccine, High Dose, Age 65 And Up 2013-04-30 00:00:00 Completed Margo Seybold Influenza Virus Vaccine, High Dose, Age 65 And Up 2013-04-30 00:00:00 Completed Margo Seybold Influenza Virus Vaccine, High Dose, Age 65 And Up 2013-04-30 00:00:00 Completed Margo Seybold Influenza Virus Vaccine, High Dose, Age 65 And Up 2013-04-30 00:00:00 Completed Margo Seybold Influenza Virus Vaccine, High Dose, Age 65 And Up 2013-04-30 00:00:00 Completed Margo Seybold Influenza Virus Vaccine, High Dose, Age 65 And Up 2013-04-30 00:00:00 Completed Margo Seybold Influenza Virus Vaccine, High Dose, Age 65 And Up 2013-04-30 00:00:00 Completed Margo Seybold - External Influenza Virus Vaccine, High Dose, Age 65 And Up 2013-04-30 00:00:00 Completed Margo Seybold - External Influenza Virus Vaccine, High Dose, Age 65 And Up 2013-04-30 00:00:00 Completed Margo Seybold Influenza Virus Vaccine, High Dose, Age 65 And Up 2013-04-30 00:00:00 Completed Margo Seybold - External Influenza Virus Vaccine, High Dose, Age 65 And Up 2013-04-30 00:00:00 Completed Margo Seybold - External Influenza Virus Vaccine, High Dose, Age 65 And Up 2013-04-30 00:00:00 Completed Margo Seybold - External Influenza Virus Vaccine, High Dose, Age 65 And Up 2013-04-30 00:00:00 Completed Margo Seybold - External Influenza Virus Vaccine, High Dose, Age 65 And Up 2013-04-30 00:00:00 Completed Margo Seybold - External Shingles SQ (Zostavax) 2008-03-29 00:00:00 Completed Margo Seybold - External Shingles SQ (Zostavax) 2008-03-29 00:00:00 Completed Margo Seybold - External Shingles SQ (Zostavax) 2008-03-29 00:00:00 Completed Margo Seybold Shingles SQ (Zostavax) 2008-03-29 00:00:00 Completed Margo Seybold Shingles SQ (Zostavax) 2008-03-29 00:00:00 Completed Margo Seybold Shingles SQ (Zostavax) 2008-03-29 00:00:00 Completed Margo Seybold Shingles SQ (Zostavax) 2008-03-29 00:00:00 Completed Margo Seybold Shingles SQ (Zostavax) 2008-03-29 00:00:00 Completed Margo Seybold Shingles SQ (Zostavax) 2008-03-29 00:00:00 Completed Margo Seybold Shingles SQ (Zostavax) 2008-03-29 00:00:00 Completed Margo Seybold - External Shingles SQ (Zostavax) 2008-03-29 00:00:00 Completed Margo Seybold Shingles SQ (Zostavax) 2008-03-29 00:00:00 Completed Margo Seybold - External Shingles SQ (Zostavax) 2008-03-29 00:00:00 Completed Margo Seybold - External Shingles SQ (Zostavax) 2008-03-29 00:00:00 Completed Margo Seybold - External Shingles SQ (Zostavax) 2008-03-29 00:00:00 Completed Margo Seybold - External Shingles SQ (Zostavax) 2008-03-29 00:00:00 Completed Margo Seybold - External Shingles SQ (Zostavax) 2008-03-29 00:00:00 Completed Margo Seybold - External Yellow Fever Vaccine 2006-11-19 00:00:00 Completed Margo Vasquezybold - External Typhoid- ViCPs (IM) 2006-11-19 00:00:00 Completed Margo ybold - External Td- Tetanus & Diphtheria Vaccine (age 7+ years) 2006-11-19 00:00:00 Completed Margo shadiold - External IPV- Inactivated Polio Vaccine 2006-11-19 00:00:00 Completed Margo Seybold - External Yellow Fever Vaccine 2006-11-19 00:00:00 Completed Margo ybold - External Typhoid- ViCPs (IM) 2006-11-19 00:00:00 Completed Margo Seybold - External Td- Tetanus & Diphtheria Vaccine (age 7+ years) 2006-11-19 00:00:00 Completed Margo shadiold - External IPV- Inactivated Polio Vaccine 2006-11-19 00:00:00 Completed Margo ybold - External Yellow Fever Vaccine 2006-11-19 00:00:00 Completed Margo ybold - External Typhoid- ViCPs (IM) 2006-11-19 00:00:00 Completed Margo ybold - External Td- Tetanus & Diphtheria Vaccine (age 7+ years) 2006-11-19 00:00:00 Completed Margo ybold IPV- Inactivated Polio Vaccine 2006-11-19 00:00:00 Completed Margo ybold Yellow Fever Vaccine 2006-11-19 00:00:00 Completed Margo Vasquezybold Typhoid- ViCPs (IM) 2006-11-19 00:00:00 Completed Margo Vasquezybold Td- Tetanus & Diphtheria Vaccine (age 7+ years) 2006-11-19 00:00:00 Completed Margo Seybold IPV- Inactivated Polio Vaccine 2006-11-19 00:00:00 Completed Margo Seybold Yellow Fever Vaccine 2006-11-19 00:00:00 Completed Margo Seybold Typhoid- ViCPs (IM) 2006-11-19 00:00:00 Completed Margo Seybold Td- Tetanus & Diphtheria Vaccine (age 7+ years) 2006-11-19 00:00:00 Completed Margo Seybold IPV- Inactivated Polio Vaccine 2006-11-19 00:00:00 Completed Margo Seybold Yellow Fever Vaccine 2006-11-19 00:00:00 Completed Margo Seybold Typhoid- ViCPs (IM) 2006-11-19 00:00:00 Completed Margo Seybold Td- Tetanus & Diphtheria Vaccine (age 7+ years) 2006-11-19 00:00:00 Completed Margo Seybold IPV- Inactivated Polio Vaccine 2006-11-19 00:00:00 Completed Margo Seybold Yellow Fever Vaccine 2006-11-19 00:00:00 Completed Margo Seybold Typhoid- ViCPs (IM) 2006-11-19 00:00:00 Completed Margo Seybold Td- Tetanus & Diphtheria Vaccine (age 7+ years) 2006-11-19 00:00:00 Completed Margo Seybold IPV- Inactivated Polio Vaccine 2006-11-19 00:00:00 Completed Margo ybold Yellow Fever Vaccine 2006-11-19 00:00:00 Completed Margo Vasquezybold Typhoid- ViCPs (IM) 2006-11-19 00:00:00 Completed Margo Seybold Td- Tetanus & Diphtheria Vaccine (age 7+ years) 2006-11-19 00:00:00 Completed Margo Seybold IPV- Inactivated Polio Vaccine 2006-11-19 00:00:00 Completed Margo Seybold Yellow Fever Vaccine 2006-11-19 00:00:00 Completed Margo Seybold Typhoid- ViCPs (IM) 2006-11-19 00:00:00 Completed Margo Seybold Td- Tetanus & Diphtheria Vaccine (age 7+ years) 2006-11-19 00:00:00 Completed Margo Seybold IPV- Inactivated Polio Vaccine 2006-11-19 00:00:00 Completed Margo Seybold Yellow Fever Vaccine 2006-11-19 00:00:00 Completed Margo Seybold Typhoid- ViCPs (IM) 2006-11-19 00:00:00 Completed Margo Seybold Td- Tetanus & Diphtheria Vaccine (age 7+ years) 2006-11-19 00:00:00 Completed Margo Vasquezybold - External IPV- Inactivated Polio Vaccine 2006-11-19 00:00:00 Completed Margo Seybold - External Yellow Fever Vaccine 2006-11-19 00:00:00 Completed Margo Royold - External Typhoid- ViCPs (IM) 2006-11-19 00:00:00 Completed Margo Royold - External Td- Tetanus & Diphtheria Vaccine (age 7+ years) 2006-11-19 00:00:00 Completed Margo Vasquezybold Td- Tetanus & Diphtheria Vaccine (age 7+ years) 2006-11-19 00:00:00 Completed Margo Royold - External IPV- Inactivated Polio Vaccine 2006-11-19 00:00:00 Completed Margo Seybold - External Yellow Fever Vaccine 2006-11-19 00:00:00 Completed Margo Royold - External Typhoid- ViCPs (IM) 2006-11-19 00:00:00 Completed Amrgo Seybold - External Td- Tetanus & Diphtheria Vaccine (age 7+ years) 2006-11-19 00:00:00 Completed Margo Royold - External IPV- Inactivated Polio Vaccine 2006-11-19 00:00:00 Completed Margo Royold - External Yellow Fever Vaccine 2006-11-19 00:00:00 Completed Margo Vasquezybold - External Typhoid- ViCPs (IM) 2006-11-19 00:00:00 Completed Margo Seybold - External IPV- Inactivated Polio Vaccine 2006-11-19 00:00:00 Completed Margo Vasquezybold Yellow Fever Vaccine 2006-11-19 00:00:00 Completed Margo Royold Typhoid- ViCPs (IM) 2006-11-19 00:00:00 Completed Margo Ambriz Td- Tetanus & Diphtheria Vaccine (age 7+ years) 2006-11-19 00:00:00 Completed Margo Seybold - External IPV- Inactivated Polio Vaccine 2006-11-19 00:00:00 Completed Margo Seybold - External Yellow Fever Vaccine 2006-11-19 00:00:00 Completed Margo Seybold - External Typhoid- ViCPs (IM) 2006-11-19 00:00:00 Completed Margo Seybold - External Td- Tetanus & Diphtheria Vaccine (age 7+ years) 2006-11-19 00:00:00 Completed Margo Seybold - External IPV- Inactivated Polio Vaccine 2006-11-19 00:00:00 Completed Margo Seybold - External Yellow Fever Vaccine 2006-11-19 00:00:00 Completed Margo Vasquezybold - External Typhoid- ViCPs (IM) 2006-11-19 00:00:00 Completed Margo Vasquezybold - External Td- Tetanus & Diphtheria Vaccine (age 7+ years) 2006-11-19 00:00:00 Completed Margo Seybold - External IPV- Inactivated Polio Vaccine 2006-11-19 00:00:00 Completed Margo Vasquezybold - External Yellow Fever Vaccine 2006-11-19 00:00:00 Completed Margo Seybold - External Typhoid- ViCPs (IM) 2006-11-19 00:00:00 Completed Margo Vasquezybold - External Td- Tetanus & Diphtheria Vaccine (age 7+ years) 2006-11-19 00:00:00 Completed Margo Seybold - External IPV- Inactivated Polio Vaccine 2006-11-19 00:00:00 Completed Margo Seybold - External Pneumococcal Vaccine, Polysaccharide 2006-05-06 00:00:00 Completed Margo Seybold - External Pneumococcal Vaccine, Polysaccharide 2006-05-06 00:00:00 Completed Margo Seybold - External Pneumococcal Vaccine, Polysaccharide 2006-05-06 00:00:00 Completed Margo Seybold Pneumococcal Vaccine, Polysaccharide 2006-05-06 00:00:00 Completed Margo Seybold Pneumococcal Vaccine, Polysaccharide 2006-05-06 00:00:00 Completed Margo Seybold Pneumococcal Vaccine, Polysaccharide 2006-05-06 00:00:00 Completed Margo Seybold Pneumococcal Vaccine, Polysaccharide 2006-05-06 00:00:00 Completed Margo Seybold Pneumococcal Vaccine, Polysaccharide 2006-05-06 00:00:00 Completed Margo Seybold Pneumococcal Vaccine, Polysaccharide 2006-05-06 00:00:00 Completed Margo Seybold Pneumococcal Vaccine, Polysaccharide 2006-05-06 00:00:00 Completed Margo Seybold - External Pneumococcal Vaccine, Polysaccharide 2006-05-06 00:00:00 Completed Margo Seybold - External Pneumococcal Vaccine, Polysaccharide 2006-05-06 00:00:00 Completed Margo Seybold Pneumococcal Vaccine, Polysaccharide 2006-05-06 00:00:00 Completed Margo Seybold - External Pneumococcal Vaccine, Polysaccharide 2006-05-06 00:00:00 Completed Margo Seybold - External Pneumococcal Vaccine, Polysaccharide 2006-05-06 00:00:00 Completed Margo Seshadiold - External Pneumococcal Vaccine, Polysaccharide 2006-05-06 00:00:00 Completed Margo Seybold - External Pneumococcal Vaccine, Polysaccharide 2006-05-06 00:00:00 Completed Margo Seybold - External Hepatitis A 2001-01-08 00:00:00 Completed Margo Seybold - External Hepatitis A 2001-01-08 00:00:00 Completed Margo Seybold - External Hepatitis A 2001-01-08 00:00:00 Completed Margo Seybold Hepatitis A 2001-01-08 00:00:00 Completed Margo Seybold Hepatitis A 2001-01-08 00:00:00 Completed Margo Seybold Hepatitis A 2001-01-08 00:00:00 Completed Margo Seybold Hepatitis A 2001-01-08 00:00:00 Completed Margo Seybold Hepatitis A 2001-01-08 00:00:00 Completed Margo Seybold Hepatitis A 2001-01-08 00:00:00 Completed Margo Seybold Hepatitis A 2001-01-08 00:00:00 Completed Margo Seybold - External Hepatitis A 2001-01-08 00:00:00 Completed Margo Seybold - External Hepatitis A 2001-01-08 00:00:00 Completed Margo Seybold Hepatitis A 2001-01-08 00:00:00 Completed Margo Seybold - External Hepatitis A 2001-01-08 00:00:00 Completed Margo Seybold - External Hepatitis A 2001-01-08 00:00:00 Completed Margo Seybold - External Hepatitis A 2001-01-08 00:00:00 Completed Margo Seybold - External Hepatitis A 2001-01-08 00:00:00 Completed Margo Seybold - External Hepatitis A 2000-05-07 00:00:00 Completed Margo Seybold - External Hepatitis A 2000-05-07 00:00:00 Completed Margo Seybold - External Hepatitis A 2000-05-07 00:00:00 Completed Margo Seybold Hepatitis A 2000-05-07 00:00:00 Completed Margo Seybold Hepatitis A 2000-05-07 00:00:00 Completed Margo Seybold Hepatitis A 2000-05-07 00:00:00 Completed Margo Seybold Hepatitis A 2000-05-07 00:00:00 Completed Margo Seybold Hepatitis A 2000-05-07 00:00:00 Completed Margo Seybold Hepatitis A 2000-05-07 00:00:00 Completed Margo Seybold Hepatitis A 2000-05-07 00:00:00 Completed Margo Seybold - External Hepatitis A 2000-05-07 00:00:00 Completed Margo Seybold - External Hepatitis A 2000-05-07 00:00:00 Completed Margo Seybold - External Hepatitis A 2000-05-07 00:00:00 Completed Margo Seybold Hepatitis A 2000-05-07 00:00:00 Completed Margo Seybold - External Hepatitis A 2000-05-07 00:00:00 Completed Mrago Seybold - External Hepatitis A 2000-05-07 00:00:00 Completed Margo Seybold - External Hepatitis A 2000-05-07 00:00:00 Completed Margo Seybold - External Td- Tetanus & Diphtheria Vaccine (age 7+ years) 1997-03-01 00:00:00 Completed Margo Seybold - External Td- Tetanus & Diphtheria Vaccine (age 7+ years) 1997-03-01 00:00:00 Completed Margo Seybold - External Td- Tetanus & Diphtheria Vaccine (age 7+ years) 1997-03-01 00:00:00 Completed Margo Seybold Td- Tetanus & Diphtheria Vaccine (age 7+ years) 1997-03-01 00:00:00 Completed Margo Seybold Td- Tetanus & Diphtheria Vaccine (age 7+ years) 1997-03-01 00:00:00 Completed Margo Seybold Td- Tetanus & Diphtheria Vaccine (age 7+ years) 1997-03-01 00:00:00 Completed Margo Seybold Td- Tetanus & Diphtheria Vaccine (age 7+ years) 1997-03-01 00:00:00 Completed Margo Seybold Td- Tetanus & Diphtheria Vaccine (age 7+ years) 1997-03-01 00:00:00 Completed Margo Seybold Td- Tetanus & Diphtheria Vaccine (age 7+ years) 1997-03-01 00:00:00 Completed Margo Seybold Td- Tetanus & Diphtheria Vaccine (age 7+ years) 1997-03-01 00:00:00 Completed Margo Seybold - External Td- Tetanus & Diphtheria Vaccine (age 7+ years) 1997-03-01 00:00:00 Completed Margo Seybold - External Td- Tetanus & Diphtheria Vaccine (age 7+ years) 1997-03-01 00:00:00 Completed Margo Seybold Td- Tetanus & Diphtheria Vaccine (age 7+ years) 1997-03-01 00:00:00 Completed Margo Seybold - External Td- Tetanus & Diphtheria Vaccine (age 7+ years) 1997-03-01 00:00:00 Completed Margo Seybold - External Td- Tetanus & Diphtheria Vaccine (age 7+ years) 1997-03-01 00:00:00 Completed Margo Seybold - External Td- Tetanus & Diphtheria Vaccine (age 7+ years) 1997-03-01 00:00:00 Completed Margo Seybold - External Td- Tetanus & Diphtheria Vaccine (age 7+ years) 1997-03-01 00:00:00 Completed Margo Seybold - External Td- Tetanus & Diphtheria Vaccine (age 7+ years) 1990-03-24 00:00:00 Completed Margo Seybold - External Td- Tetanus & Diphtheria Vaccine (age 7+ years) 1990-03-24 00:00:00 Completed Margo Seybold - External Td- Tetanus & Diphtheria Vaccine (age 7+ years) 1990-03-24 00:00:00 Completed Margo Seybold Td- Tetanus & Diphtheria Vaccine (age 7+ years) 1990-03-24 00:00:00 Completed Margo Seybold Td- Tetanus & Diphtheria Vaccine (age 7+ years) 1990-03-24 00:00:00 Completed Margo Seybold Td- Tetanus & Diphtheria Vaccine (age 7+ years) 1990-03-24 00:00:00 Completed Margo Seybold Td- Tetanus & Diphtheria Vaccine (age 7+ years) 1990-03-24 00:00:00 Completed Margo Seybold Td- Tetanus & Diphtheria Vaccine (age 7+ years) 1990-03-24 00:00:00 Completed Margo Seybold Td- Tetanus & Diphtheria Vaccine (age 7+ years) 1990-03-24 00:00:00 Completed Margo Seybold Td- Tetanus & Diphtheria Vaccine (age 7+ years) 1990-03-24 00:00:00 Completed Margo Seybold - External Td- Tetanus & Diphtheria Vaccine (age 7+ years) 1990-03-24 00:00:00 Completed Margo Seybold - External Td- Tetanus & Diphtheria Vaccine (age 7+ years) 1990-03-24 00:00:00 Completed Margo Seybold Td- Tetanus & Diphtheria Vaccine (age 7+ years) 1990-03-24 00:00:00 Completed Margo Seybold - External Td- Tetanus & Diphtheria Vaccine (age 7+ years) 1990-03-24 00:00:00 Completed Margo Seybold - External Td- Tetanus & Diphtheria Vaccine (age 7+ years) 1990-03-24 00:00:00 Completed Margo Seybold - External Td- Tetanus & Diphtheria Vaccine (age 7+ years) 1990-03-24 00:00:00 Completed Margo Seybold - External Td- Tetanus & Diphtheria Vaccine (age 7+ years) 1990-03-24 00:00:00 Completed Margo Vasquezybold - External Shingles SQ (Zostavax) Unknown Completed Margo Seybold - External Td- Tetanus & Diphtheria Vaccine (age 7+ years) Unknown [facility], Polysaccharide Unknown Completed Margo ybol d - External Influenza Virus Vaccine, High Dose, Age 65 And Up Unknown Completed Margo Seybold - External Influenza Virus Vaccine, High Dose, Age 65 And Up Unknown Completed Margo Seybold - External Pneumococcal Vaccine, Conjugate 13 Unknown Completed Margo Seybold - External Influenza Virus Vaccine, High Dose, Age 65 And Up Unknown Completed Margo Seybold - External Td- Tetanus & Diphtheria Vaccine (age 7+ years) Unknown [facility]- [facility] Diphtheria Vacc[facility] (age 7+ years) Unknown Completed Margo Seybol d - External Hepatitis A Unknown Completed Margo S eybold - External Hepatitis A Unknown Completed Margo S eybold - External IPV- Inactivated Polio Vaccine Unknown Completed Margo Seybold - External Yellow Fever Vaccine Unknown Completed Margo Seybold - External Typhoid- ViCPs (IM) Unknown Completed Margo Seybold - External Td- Tetanus & Diphtheria Vaccine (age 7+ years) Unknown [facility] Influ[facility] Virus Vaccine, High Dose, Age 65 And Up Unknown [facility] Influenza Virus Vaccine, High Dose, Age 65 And Up Unknown [facility] Influenza Virus Vaccine, High Dose, Age 65 And Up Unknown Completed [facility] - External Shingles IM (Shingrix) Unknown Completed [facility] - External Shingles IM (Shingrix) Unknown Completed [facility] - External Influenza Virus Vaccine,Derived from Cell Culture Unknown [facility] Influenza Virus Vaccine, High Dose, Age 65 And Up Unknown [facility] Covid-19 Vaccine Moderna (Spikevax), Mrna-lnp, Arcadio Protein, Pf Unknown Completed [facility] - External Covid-19 Vaccine Moderna (Spikevax), Mrna-lnp, Arcadio Protein, Pf Unknown Completed [facility] - External Influenza Virus Vaccine, Quadrivalent, High Dose, Age 65 And Up Unknown [facility] Moderna (Spikevax), Mrna-lnp, Arcadio Protein, Pf Unknown Completed [facility] - External Covid-19 Vaccine Moderna (Spikevax), Mrna-lnp, Arcadio Protein, Pf Unknown Completed [facility] - External Influenza Virus Vaccine, Quadrivalent, High Dose, Age 65 And Up Unknown Completed [facility] eybold - External COVID-19 BIVALENT VACCINE MODERNA Unknown Completed [facility] - External RSV, unspecified formulation Unknown Completed [facility] - External Influenza Virus Vaccine, Quadrivalent, High Dose, Age 65 And Up Unknown Completed [facility] eybold - External Influenza Virus Vaccine, High Dose, Age 65 And Up Unknown Completed [facility] - External Shingles SQ (Zostavax) Unknown Completed [facility] - External Td- Tetanus & Diphtheria Vaccine (age 7+ years) Unknown [facility] Pneumococcal Vaccine, Polysaccharide Unknown [facility] Influenza Virus Vaccine, High Dose, Age 65 And Up Unknown Completed [facility] - External Influenza Virus Vaccine, High Dose, Age 65 And Up Unknown Completed [facility] - External Pneumococcal Vaccine, Conjugate 13 Unknown [facility] Influenza Virus Vaccine, High Dose, Age 65 And Up Unknown Completed Margo Seybold - External Td- Tetanus & Diphtheria Vaccine (age 7+ years) Unknown Completed Margo Royol d - External Td- Tetanus & Diphtheria Vaccine (age 7+ years) Unknown Completed Margo Royol d - External Hepatitis A Unknown Completed Margo alvabold - External Hepatitis A Unknown Completed Margo S nidabo - External IPV- Inactivated Polio Vaccine Unknown [facility]ever Vaccine Unknown Completed Margo Ambriz - External Typhoid- ViCPs (IM) Unknown Completed Margo Royold - External Td- Tetanus & Diphtheria Vaccine (age 7+ years) Unknown Completed Margo Muniz d - External Influenza Virus Vaccine, High Dose, Age 65 And Up Unknown Completed Margo Royold - External Influenza Virus Vaccine, High Dose, Age 65 And Up Unknown Completed Margodexter Royold - External Influenza Virus Vaccine, High Dose, Age 65 And Up Unknown Completed Margo Ambriz - External Shingles IM (Shingrix) Unknown Completed Margodexter Royold - External Shingles IM (Shingrix) Unknown Completed Margo Ambriz - External Influenza Virus Vaccine,Derived from Cell Culture Unknown Completed Margodexter Ambriz - External Influenza Virus Vaccine, High Dose, Age 65 And Up Unknown Completed Margo Ambriz - External Covid-19 Vaccine Moderna (Spikevax), Mrna-lnp, Arcadio Protein, Pf Unknown Completed [facility] External Covid-19 Vaccine Moderna (Spikevax), Mrna-lnp, Arcadio Protein, Pf Unknown [facility] Influ[facility] Virus Vaccine, Quadrivalent, High Dose, Age 65 And Up Unknown Completed Margo alvabold - External Covid-19 Vaccine Moderna (Spikevax), Mrna-lnp, Arcadio Protein, Pf Unknown Completed [facility] - External Covid-19 Vaccine Moderna (Spikevax), Mrna-lnp, Arcadio Protein, Pf Unknown [facility] Influenza Virus Vaccine, Quadrivalent, High Dose, Age 65 And Up Unknown Completed [facility] nidabold External COVID-19 BIVALENT VACCINE MODERNA Unknown Completed Margo Alves ld - External RSV, unspecified formulation Unknown Completed [facility] - External Influenza Virus Vaccine, Quadrivalent, High Dose, Age 65 And Up Unknown Completed Margo S eybold - External Influenza Virus Vaccine, High Dose, Age 65 And Up Unknown Com[facility] - External COVID-19 Vaccine(AppSocially)(fall 2022)(12yrs+) Unknown [facility], Abrysvo [facility] Shingles SQ (Zostavax) Unknown Com[facility] - External Td- Tetanus & Diphtheria Vaccine (age 7+ years) Unknown Completed Margo ol d - External Pneumococcal Vaccine, Polysaccharide Unknown Completed Margo ol d - External Influenza Virus Vaccine, High Dose, Age 65 And Up Unknown Completed [facility] - External Influenza Virus Vaccine, High Dose, Age 65 And Up Unknown Completed [facility] - External Pneumococcal Vaccine, Conjugate 13 Unknown Completed [facility] - External Influenza Virus Vaccine, High Dose, Age 65 And Up Unknown Com[facility] - External Td- Tetanus & Diphtheria Vaccine (age 7+ years) Unknown [facility]- Tetanus & Diphtheria Vaccine (age 7+ years) Unknown Completed Margo Vasquezol d - External Hepatitis A Unknown Completed Margo Coleman eybold - External Hepatitis A Unknown Completed Margo Coleman bo - External IPV- Inactivated Polio Vaccine Unknown Completed Margo old - External Yellow Fever Vaccine Unknown Completed Margo Seamita - External Typhoid- ViCPs (IM) Unknown Completed Margo old - External Td- Tetanus & Diphtheria Vaccine (age 7+ years) Unknown Completed Margo ol d - External Influenza Virus Vaccine, High Dose, Age 65 And Up Unknown Completed [facility] - External Influenza Virus Vaccine, High Dose, Age 65 And Up Unknown [facility] Influenza Virus Vaccine, High Dose, Age 65 And Up Unknown [facility] Shingles IM (Shingrix) Unknown Completed [facility] - External Shingles IM (Shingrix) Unknown Com[facility] - External Influenza Virus Vaccine,Derived from Cell Culture Unknown Completed Margo old - External Influenza Virus Vaccine, High Dose, Age 65 And Up Unknown Com[facility] - External Covid-19 Vaccine Moderna (Spikevax), Mrna-lnp, Arcadio Protein, Pf Unknown [facility] Vaccine Moderna (Spikevax), Mrna-lnp, Arcadio Protein, Pf Unknown Completed [facility] - External Influenza Virus Vaccine, Quadrivalent, High Dose, Age 65 And Up Unknown [facility] Vaccine Moderna (Spikevax), Mrna-lnp, Arcadio Protein, Pf Unknown Completed [facility] - External Covid-19 Vaccine Moderna (Spikevax), Mrna-lnp, Arcadio Protein, Pf Unknown Completed [facility] - External Influenza Virus Vaccine, Quadrivalent, High Dose, Age 65 And Up Unknown [facility] BIVALENT VACCINE MODERNA Unknown Completed [facility] - External RSV, unspecified formulation Unknown Completed [facility] - External Influenza Virus Vaccine, Quadrivalent, High Dose, Age 65 And Up Unknown [facility] Influenza Virus Vaccine, High Dose, Age 65 And Up Unknown Completed [facility] - External COVID-19 Vaccine(AppSocially)(fall 2022)(12yrs+) Unknown Completed [facility] - External RSV, Abrysvo Unknown Completed [facility] - External Shingles SQ (Zostavax) Unknown Completed [facility] - External Td- Tetanus & Diphtheria Vaccine (age 7+ years) Unknown Completed [facility] - External Pneumococcal Vaccine, Polysaccharide Unknown Completed [facility] - External Influenza Virus Vaccine, High Dose, Age 65 And Up Unknown Completed [facility] - External Influenza Virus Vaccine, High Dose, Age 65 And Up Unknown Completed [facility] - External Pneumococcal Vaccine, Conjugate 13 Unknown Completed [facility] - External Influenza Virus Vaccine, High Dose, Age 65 And Up Unknown Completed [facility] - External Td- Tetanus & Diphtheria Vaccine (age 7+ years) Unknown [facility] T[facility]- Tetanus & Diphtheria Vaccine (age 7+ years) Unknown [facility] A [facility] A Unknown Completed [facility] - External IPV- Inactivated Polio Vaccine Unknown Completed [facility] - External Yellow Fever Vaccine Unknown Completed [facility] - External Typhoid- ViCPs (IM) Unknown Completed [facility] - External Td- Tetanus & Diphtheria Vaccine (age 7+ years) Unknown [facility] Influenza Virus Vaccine, High Dose, Age 65 And Up Unknown Completed [facility] - External Influenza Virus Vaccine, High Dose, Age 65 And Up Unknown [facility] Influenza Virus Vaccine, High Dose, Age 65 And Up Unknown Completed [facility] - External Shingles IM (Shingrix) Unknown Completed [facility] - External Shingles IM (Shingrix) Unknown Completed [facility] - External Influenza Virus Vaccine,Derived from Cell Culture Unknown Completed [facility] - External Influenza Virus Vaccine, High Dose, Age 65 And Up Unknown Completed [facility] External Covid-19 Vaccine Moderna (Spikevax), Mrna-lnp, Arcadio Protein, Pf Unknown Completed [facility] - External Covid-19 Vaccine Moderna (Spikevax), Mrna-lnp, Arcadio Protein, Pf Unknown Completed [facility] External Influenza Virus Vaccine, Quadrivalent, High Dose, Age 65 And Up Unknown [facility]-19 Vaccine Moderna (Spikevax), Mrna-lnp, Arcadio Protein, Pf Unknown Completed [facility] External Covid-19 Vaccine Moderna (Spikevax), Mrna-lnp, Arcadio Protein, Pf Unknown Completed [facility] - External Influenza Virus Vaccine, Quadrivalent, High Dose, Age 65 And Up Unknown [facility] COVID-19 BIVALENT VACCINE MODERNA Unknown [facility], unspecified formulation Unknown Completed [facility] External Influenza Virus Vaccine, Quadrivalent, High Dose, Age 65 And Up Unknown Completed [facility] eybold - External Influenza Virus Vaccine, High Dose, Age 65 And Up Unknown Completed [facility] - External COVID-19 Vaccine(AppSocially)(fall 2022)(12yrs+) Unknown Completed [facility] - External RSV, Abrysvo Unknown Completed [facility] - External Shingles SQ (Zostavax) Unknown Completed [facility] - External Td- Tetanus & Diphtheria Vaccine (age 7+ years) Unknown Completed [facility] - External Pneumococcal Vaccine, Polysaccharide Unknown [facility] Influenza Virus Vaccine, High Dose, Age 65 And Up Unknown [facility] Influenza Virus Vaccine, High Dose, Age 65 And Up Unknown [facility] - [facility] Pneumococcal Vaccine, Conjugate 13 Unknown Completed Margo ybold - External Influenza Virus Vaccine, High Dose, Age 65 And Up Unknown Completed Margo old - External Td- Tetanus & Diphtheria Vaccine (age 7+ years) Unknown Com[facility] Td- Tetanus & Diphtheria Vaccine (age 7+ years) Unknown Completed Margo ol d - External Hepatitis A Unknown Completed [facility] eybold - External Hepatitis A Unknown [facility]V- Inactivated Polio Vaccine Unknown [facility] Yellow Fever Vaccine Unknown Completed Margo old - External Typhoid- ViCPs (IM) Unknown [facility] Td- Tetanus & Diphtheria Vaccine (age 7+ years) Unknown Com[facility] Influenza Virus Vaccine, High Dose, Age 65 And Up Unknown [facility] Influenza Virus Vaccine, High Dose, Age 65 And Up Unknown [facility] Influenza Virus Vaccine, High Dose, Age 65 And Up Unknown Completed Margo old - External Shingles IM (Shingrix) Unknown [facility] Shingles IM (Shingrix) Unknown Completed Margo old - External Influenza Virus Vaccine,Derived from Cell Culture Unknown Completed Margo old - External Influenza Virus Vaccine, High Dose, Age 65 And Up Unknown [facility] Covid-19 Vaccine Moderna (Spikevax), Mrna-lnp, Arcadio Protein, Pf Unknown [facility] Covid-19 Vaccine Moderna (Spikevax), Mrna-lnp, Arcadio Protein, Pf Unknown [facility] Influenza Virus Vaccine, Quadrivalent, High Dose, Age 65 And Up Unknown Completed Margo S eybold - External Covid-19 Vaccine Moderna (Spikevax), Mrna-lnp, Arcadio Protein, Pf Unknown Completed [facility] - External Covid-19 Vaccine Moderna (Spikevax), Mrna-lnp, Arcadio Protein, Pf Unknown [facility] Influenza Virus Vaccine, Quadrivalent, High Dose, Age 65 And Up Unknown Completed [facility]o Coleman [facility] - External COVID-19 BIVALENT VACCINE MODERNA Unknown Completed Margo Royo ld - External RSV, unspecified formulation Unknown Completed Margo Royold - External Influenza Virus Vaccine, Quadrivalent, High Dose, Age 65 And Up Unknown Completed Margo Coleman [facility] - External Influenza Virus Vaccine, High Dose, Age 65 And Up Unknown Completed Margo Vasquezybold - External COVID-19 Vaccine(Pfizer)(fall 2022)(12yrs+) Unknown Completed Margo Vasquezybold - External RSV, Abrysvo Unknown Completed Margo Vasquezybold - External Vital Signs Vital Name Observation Time Observation Value Comments S ource Systolic blood pressure 2023-08-23 21:56:00 164 mm[Hg] Margo Seybo ld - External Diastolic blood pressure 2023-08-23 21:56:00 73 mm[Hg] Margo ybo ld - External Body temperature 2023-08-23 21:56:00 36.61 Fanta Margo Seybold - External Respiratory rate 2023-08-23 21:56:00 20 /min Margo Seybold - External Body height 2023-08-23 21:56:00 167.6 cm Francine ey Seybold - External Body weight 2023-08-23 21:56:00 78.472 kg Francine ey Seybold - External BMI 2023-08-23 21:56:00 27.92 kg/m2 Francine ey Seybold - External Oxygen saturation in Arterial blood by Pulse oximetry 2023-08-23 21:56:00 99 /min Margo Vasquezybo ld - External Systolic blood pressure 2023-07-23 22:16:00 152 mm[Hg] Margo Seybo ld - External Diastolic blood pressure 2023-07-23 22:16:00 73 mm[Hg] Margo Seybo ld - External Heart rate 2023-07-23 22:16:00 69 /min Kelse y Seybold - External Body temperature 2023-07-23 22:16:00 37.06 Fanta Margo Seybold - External Respiratory rate 2023-07-23 22:16:00 19 /min Margo Seybold - External Body height 2023-07-23 22:16:00 167.6 cm Francine ey Seybold - External Body weight 2023-07-23 22:16:00 78.472 kg Francine ey Seybold - External BMI 2023-07-23 22:16:00 27.92 kg/m2 Francine ey Seybold - External Oxygen saturation in Arterial blood by Pulse oximetry 2023-07-23 22:16:00 99 /min Margo Seybo ld - External Systolic blood pressure 2023-07-10 20:08:00 143 mm[Hg] Margo Seybo ld - External Diastolic blood pressure 2023-07-10 20:08:00 68 mm[Hg] Margo Seybo ld - External Heart rate 2023-07-10 20:08:00 71 /min Kelse y Seybold - External Body temperature 2023-07-10 20:08:00 36.28 Fanta Margo Seybold - External Respiratory rate 2023-07-10 20:08:00 16 /min Margo Seybold - External Body height 2023-07-10 20:08:00 167.6 cm Francine ey Seybold - External Body weight 2023-07-10 20:08:00 78.608 kg Francine ey Seybold - External BMI 2023-07-10 20:08:00 27.97 kg/m2 Francine ey Seybold - External Oxygen saturation in Arterial blood by Pulse oximetry 2023-07-10 20:08:00 97 /min Margo Seybo ld - External Systolic blood pressure 2023-06-07 14:47:00 148 mm[Hg] Margo Seybo ld - External Diastolic blood pressure 2023-06-07 14:47:00 66 mm[Hg] Margo Seybo ld - External Heart rate 2023-06-07 14:47:00 64 /min Kelse y Seybold - External Body temperature 2023-06-07 14:47:00 36.61 Fanta Margo Seybold - External Respiratory rate 2023-06-07 14:47:00 15 /min Margo Seybold - External Body height 2023-06-07 14:47:00 167.6 cm Francine ey Seybold - External Body weight 2023-06-07 14:47:00 78.019 kg Francine ey Seybold - External BMI 2023-06-07 14:47:00 27.76 kg/m2 Francine ey Seybold - External Oxygen saturation in Arterial blood by Pulse oximetry 2023-06-07 14:47:00 99 /min Margo Seybo ld - External Systolic blood pressure 2023-05-21 19:15:00 160 mm[Hg] Margo Seybo ld - External Diastolic blood pressure 2023-05-21 19:15:00 70 mm[Hg] Margo Seybo ld - External Heart rate 2023-05-21 19:15:00 71 /min Kelse y Seybold - External Body temperature 2023-05-21 19:15:00 36.78 Fanta Margo Seybold - External Respiratory rate 2023-05-21 19:15:00 20 /min Margo Seybold - External Body height 2023-05-21 19:15:00 167.6 cm Francine ey Seybold - External Body weight 2023-05-21 19:15:00 76.839 kg Francine ey Seybold - External BMI 2023-05-21 19:15:00 27.34 kg/m2 Francine ey Seybold - External Oxygen saturation in Arterial blood by Pulse oximetry 2023-05-21 19:15:00 96 /min Margo Seybo ld - External Systolic blood pressure 2023-05-10 14:11:00 130 mm[Hg] Margo Seybo ld - External Diastolic blood pressure 2023-05-10 14:11:00 60 mm[Hg] Margo Seybo ld - External Heart rate 2023-05-10 14:11:00 62 /min Kelse y Seybold - External Body temperature 2023-05-10 14:11:00 35.94 Fanta Margo Seybold - External Respiratory rate 2023-05-10 14:11:00 15 /min Margo Seybold - External Body height 2023-05-10 14:11:00 167.6 cm Francine ey Seybold - External Body weight 2023-05-10 14:11:00 78.109 kg Francine ey Seybold - External BMI 2023-05-10 14:11:00 27.79 kg/m2 Francine ey Seybold - External Oxygen saturation in Arterial blood by Pulse oximetry 2023-05-10 14:11:00 95 /min Margo Vasquezybo ld - External Systolic blood pressure 2023-04-18 14:12:00 120 mm[Hg] Margo Seybo ld - External Diastolic blood pressure 2023-04-18 14:12:00 60 mm[Hg] Margo Seybo ld - External Heart rate 2023-04-18 14:12:00 60 /min Kelse y Seybold - External Body temperature 2023-04-18 14:12:00 36.11 Fanta Margo Seybold - External Respiratory rate 2023-04-18 14:12:00 16 /min Margo Seybold - External Body height 2023-04-18 14:12:00 167.6 cm Francine ey Seybold - External Body weight 2023-04-18 14:12:00 76.204 kg Francine ey Seybold - External BMI 2023-04-18 14:12:00 27.12 kg/m2 Francine ey Seybold - External Oxygen saturation in Arterial blood by Pulse oximetry 2023-04-18 14:12:00 94 /min Margo Seybo ld - External Systolic blood pressure 2022-10-04 21:58:00 146 mm[Hg] Margo Seybo ld - External Diastolic blood pressure 2022-10-04 21:58:00 66 mm[Hg] Margo Seybo ld - External Heart rate 2022-10-04 21:58:00 76 /min Kelse y Seybold - External Body temperature 2022-10-04 21:58:00 36.89 Fanta Margo Seybold - External Respiratory rate 2022-10-04 21:58:00 14 /min Margo Seybold - External Body height 2022-10-04 21:58:00 167.6 cm Francine ey Seybold - External Body weight 2022-10-04 21:58:00 78.019 kg Francine ey Seybold - External BMI 2022-10-04 21:58:00 27.76 kg/m2 Francine ey Seybold - External Body weight 2022-10-02 19:59:00 77.293 kg Francine ey Seybold - External BMI 2022-10-02 19:59:00 27.50 kg/m2 Francine ey Seybold - External Systolic blood pressure 2022-06-28 15:39:00 132 mm[Hg] Margo Seybo ld - External Diastolic blood pressure 2022-06-28 15:39:00 82 mm[Hg] Margo Seybo ld - External Heart rate 2022-06-28 15:39:00 61 /min Kelse y Seybold - External Body temperature 2022-06-28 15:39:00 36.61 Fanta Margo Seybold - External Respiratory rate 2022-06-28 15:39:00 16 /min Margo Seybold - External Body height 2022-06-28 15:39:00 167.6 cm Francine ey Seybold - External Body weight 2022-06-28 15:39:00 76.658 kg Francine ey Seybold - External BMI 2022-06-28 15:39:00 27.28 kg/m2 Francine ey Seybold - External Oxygen saturation in Arterial blood by Pulse oximetry 2022-06-28 15:39:00 96 /min Margo Seybo ld - External Body weight 2021-12-12 15:41:00 71.668 kg Francine ey Seybold BMI 2021-12-12 15:41:00 25.50 kg/m2 Francine ey Seybold Systolic blood pressure 2021-10-02 15:35:00 112 mm[Hg] Margo Seybo ld Diastolic blood pressure 2021-10-02 15:35:00 62 mm[Hg] Margo Seybo ld Heart rate 2021-10-02 15:35:00 80 /min Kelse y Seybold Body temperature 2021-10-02 15:35:00 36.22 Fanta Margo Seybold Respiratory rate 2021-10-02 15:35:00 16 /min Margo Seybold Body height 2021-10-02 15:35:00 167.6 cm Francine ey Seybold Body weight 2021-10-02 15:35:00 71.396 kg Francine ey Seybold BMI 2021-10-02 15:35:00 25.41 kg/m2 Francine ey Seybold Systolic blood pressure 2021-09-15 20:53:00 112 mm[Hg] Margo Seybo ld Diastolic blood pressure 2021-09-15 20:53:00 62 mm[Hg] Margo Vasquezybo ld Heart rate 2021-09-15 20:53:00 88 /min Kelse y Seybold Body temperature 2021-09-15 20:53:00 36.56 Fanta Margo Seybold Respiratory rate 2021-09-15 20:53:00 14 /min Margo Vasquezybamita Body height 2021-09-15 20:53:00 167.6 cm Francine ey Seybold Body weight 2021-09-15 20:53:00 71.215 kg Francine ey Seybold BMI 2021-09-15 20:53:00 25.34 kg/m2 Francine ey Seybold Body weight 2021-09-13 16:30:00 70.761 kg Francine ey Seybold BMI 2021-09-13 16:30:00 25.18 kg/m2 Francine ey Seybold Body weight 2021-07-12 15:11:00 73.029 kg Francine ey Seybold BMI 2021-07-12 15:11:00 25.99 kg/m2 Francine ey Seybold Systolic blood pressure 2021-06-29 15:42:00 129 mm[Hg] Margo Seybo ld Diastolic blood pressure 2021-06-29 15:42:00 55 mm[Hg] Margo Vasquezybo ld Heart rate 2021-06-29 15:42:00 63 /min Kelse y ybamita Body temperature 2021-06-29 15:42:00 36.44 Fanta Margo Ambriz Respiratory rate 2021-06-29 15:42:00 16 /min Margo Vasquezybamita Body height 2021-06-29 15:42:00 167.6 cm Francine ey Seybold Body weight 2021-06-29 15:42:00 74.844 kg Francine ey Seybold BMI 2021-06-29 15:42:00 26.63 kg/m2 Francine ey Seybold Oxygen saturation in Arterial blood by Pulse oximetry 2021-06-29 15:42:00 99 /min Margo Royo ld Procedures Procedure Date / Time Performed Performing Clinicia n Source URINALYSIS NONAUTO W/O SCOPE 2022-10-04 22:11:16 HundDeyvi plata [facility] - External ASSIGNMENT OF BENEFITS 2022-05-10 20:55:40 Docto r Unassigned, [place] [facility] Encounters Start Date/Time End Date/Time Encounter Type Admission Type Attending [facility] Department Encounter ID Source 2023-10-31 11:20:00 2023-10-31 11:20:00 Outpatient ELSY SINGLETARY MARGO KEVIN [id number] [facility]o shadiamita 2023-10-18 10:00:00 2023-10-18 10:00:00 Outpatient VIRAJ ONEIDA KEVIN [id number] [facility] Pb 2023-10-14 11:00:00 2023-10-14 11:00:00 Outpatient NATA LLOYD [id number] [facility] 2023-09-23 11:30:00 2023-09-23 11:30:00 Outpatient PREZAS ONEIDA KEVIN [id number] [facility] amita 2023-09-06 00:00:00 2023-09-06 00:00:00 Outpatient PREZAVirginia ONEIDA KEVIN [id number] Margo ybamita 2023-09-04 10:30:00 2023-09-04 10:30:00 Outpatient MARGO KEVIN [id number] Margo ybamita 2023-09-04 00:00:00 2023-09-04 00:00:00 Outpatient PREZAS ONEIDA KEVIN [id number] Margo ybamita 2023-09-03 00:00:00 2023-09-03 00:00:00 Outpatient PREZAVirginiaONEIDA [id number] [facility] 2023-09-03 00:00:00 2023-09-03 00:00:00 Outpatient EVIN ROBISON [id number] [facility] 2023-08-23 16:15:00 2023-08-23 16:15:00 Outpatient PREZASONEIDA [id number] [facility] 2023-08-23 00:00:00 2023-08-23 00:00:00 Outpatient MARGO KEVIN [id number] [facility] 2023-08-23 00:00:00 2023-08-23 00:00:00 Outpatient MARGO MARGO [id number] [facility] 2023-08-22 11:05:00 2023-08-22 11:05:00 Outpatient MARGO MARGO [id number] [facility] 2023-08-22 00:00:00 2023-08-22 00:00:00 Outpatient ONEIDA CALI MARGO [id number] [facility] 2023-08-08 00:00:00 2023-08-08 00:00:00 Outpatient EFFIEZAONEIDA Coleman MARGO KEVIN [id number] [facility] 2023-07-31 15:15:00 2023-07-31 15:15:00 Outpatient ONEIDA CALI MARGO KEVIN [id number] [facility] 2023-07-30 00:00:00 2023-07-30 00:00:00 Outpatient GC_GCBZW_Ka diyala_S [facility] [id number] [facility] 2023-07-23 16:30:00 2023-07-23 16:30:00 Outpatient ONEIDA CALI MARGO KEVIN [id number] [facility] 2023-07-23 00:00:00 2023-07-23 00:00:00 Outpatient MARGO KEVIN [id number] [facility] 2023-07-22 11:30:00 2023-07-22 11:30:00 Outpatient JANES MCFADDEN MARGO KEVIN [id number] [facility] 2023-07-22 11:00:00 2023-07-22 11:00:00 Outpatient BOGDAN JANES MARGO KEVIN [id number] [facility] 2023-07-22 00:00:00 2023-07-22 00:00:00 Outpatient ONEIDA CALI MARGO KEVIN [id number] [facility] 2023-07-13 00:00:00 2023-07-13 00:00:00 Outpatient EVIN ROBISON [id number] [facility] 2023-07-10 14:50:00 2023-07-10 14:50:00 Outpatient MARGO KEVIN [id number] [facility] 2023-07-10 14:40:00 2023-07-10 14:40:00 Outpatient SINGLETARYELSY PAINTING MARGO KEVIN [id number] [facility] 2023-07-10 14:35:00 2023-07-10 14:35:00 Outpatient FLOOR, LAB MARGO KEVIN [id number] [facility] 2023-06-28 00:00:00 2023-06-28 00:00:00 Outpatient MD MARGO DANIELLE [id number] [facility] 2023-06-25 00:00:00 2023-06-25 00:00:00 Outpatient RADHA MARLONADAN KEVIN [id number] [facility] 2023-06-25 00:00:00 2023-06-25 00:00:00 Outpatient GC_GCBZW_Ka diyala_S PRIV PRIV [id number] [facility] 2023-06-25 00:00:00 2023-06-25 00:00:00 Outpatient GC_GCBZW_Ka diyala_S PRIV PRIV [id number] [facility] 2023-06-07 10:00:00 2023-06-07 10:00:00 Outpatient PREZAS, ONEIDA KEVIN [id number] [facility] 2023-06-05 00:00:00 2023-06-05 00:00:00 Outpatient AGA, EVIN KEVIN [id number] [facility] 2023-05-21 14:00:00 2023-05-21 14:00:00 Outpatient INFUSION, TRACI KEVIN [id number] [facility] 2023-05-21 12:50:00 2023-05-21 12:50:00 Outpatient LAB39 MARGO KEVIN [id number] [facility] 2023-05-17 11:00:00 2023-05-17 11:00:00 Outpatient MARGO KEVIN [id number] [facility] 2023-05-14 16:00:00 2023-05-14 16:00:00 Outpatient IVT, MC MARGO KEVIN [id number] Margo Seybold 2023-05-14 14:35:00 2023-05-14 14:35:00 Outpatient FLOOR, LAB MARGO KEVIN [id number] [facility] 2023-05-14 00:00:00 2023-05-14 00:00:00 Outpatient LE, LAWSON MARGO KEVIN [id number] [facility] 2023-05-14 00:00:00 2023-05-14 00:00:00 Outpatient SARA, NICA MARGO KEVIN [id number] [facility] 2023-05-14 00:00:00 2023-05-14 00:00:00 Outpatient LE, LAWSON MARGO KEVIN [id number] [facility] 2023-05-14 00:00:00 2023-05-14 00:00:00 Outpatient JUGUILON, ANT [facility] [id number] [facility]14 00:00:00 2023-05-14 00:00:00 Outpatient JUGUILON, ANT KEVIN [id number] [facility] 2023-05-13 00:00:00 2023-05-13 00:00:00 Outpatient SINGLETARYELSY PAINTING [id number] [facility] 2023-05-10 09:15:00 2023-05-10 09:15:00 Outpatient PREONEIDA MCALLISTER [id number] [facility] Seybold 2023-05-06 14:15:00 2023-05-06 14:15:00 Outpatient KARENCHINA EDWARDS [id number] [facility] 2023-05-06 00:00:00 2023-05-06 00:00:00 Outpatient IGLDARDO CUEVAS [id number] [facility] 2023-05-01 11:00:00 2023-05-01 11:00:00 Outpatient ELSY SINGLETARY [id number] [facility] 2023-05-01 00:00:00 2023-05-01 00:00:00 Outpatient KIM SINGLETARYOJA MARGO KEVIN [id number] [facility] 2023-04-30 00:00:00 2023-04-30 00:00:00 Outpatient PREZAS, ONEIDA MARGO KEVIN [id number] [facility] 2023-04-30 00:00:00 2023-04-30 00:00:00 Outpatient ELSY SINGLETARY MARGO KEVIN [id number] [facility] 2023-04-26 11:25:00 2023-04-26 11:25:00 Outpatient LAB90 MARGO KEVIN [id number] [facility] 2023-04-25 00:00:00 2023-04-25 00:00:00 Outpatient MARGO KEVIN [id number] [facility] 2023-04-19 00:00:00 2023-04-19 00:00:00 Outpatient PREZAS, ONEIDA MAR[facility] KEVIN [id number] [facility] 2023-04-19 00:00:00 2023-04-19 00:00:00 Outpatient EVIN ROBISON MARGO KEVIN [id number] [facility] 2023-04-18 10:45:00 2023-04-18 10:45:00 Outpatient LAB90 MARGO KEVIN [id number] [facility] 2023-04-18 09:45:00 2023-04-18 09:45:00 Outpatient PREZAS, ONEIDA MARGO KEVIN [id number] [facility] 2023-04-18 00:00:00 2023-04-18 00:00:00 Outpatient PREZAS, ONEIDA MARGO KEVIN [id number] [facility] 2023-03-12 00:00:00 2023-03-12 00:00:00 Outpatient EVIN ROBISON MARGO KEVIN [id number] [facility] 2023-01-15 10:15:00 2023-01-15 10:15:00 Outpatient JANES MCFADDEN MARGO KEVIN [id number] [facility] 2023-01-15 10:15:00 2023-01-15 10:15:00 Outpatient 1, OPTICAL MARGO KEVIN [id number] [facility] 2022-12-29 00:00:00 2022-12-29 00:00:00 Outpatient EVIN ROBISON MARGO KEVIN [id number] [facility] 2022-12-16 00:00:00 2022-12-16 00:00:00 Outpatient EVIN ROBISON MARGO KEVIN [id number] [facility] 2022-10-08 00:00:00 2022-10-08 00:00:00 Outpatient ROCAEL DEYVI KEVIN [id number] [facility] 2022-10-04 17:15:00 2022-10-04 17:15:00 Outpatient LAB90 MARGO KEVIN [id number] [facility] 2022-10-04 16:30:00 2022-10-04 16:30:00 Outpatient ROCAEL, DEYVI KEVIN [id number] [facility] 2022-10-04 00:00:00 2022-10-04 00:00:00 Outpatient MARGO KEVIN [id number] [facility] 2022-10-02 13:45:00 2022-10-02 13:45:00 Outpatient KAREN, CHINA MARGO KEVIN [id number] [facility] 2022-09-18 10:15:00 2022-09-18 10:15:00 Outpatient KAREN, CHINA MARGO KEVIN [id number] [facility] 2022-09-11 12:40:00 2022-09-11 12:40:00 Outpatient MARGO KEVIN [id number] [facility] 2022-09-10 15:00:00 2022-09-10 15:00:00 Outpatient MARGO KEVIN [id number] [facility] 2022-09-04 00:00:00 2022-09-04 00:00:00 Outpatient EVIN ROBISON MARGO KEVIN [id number] [facility] 2022-08-28 00:00:00 2022-08-28 00:00:00 Outpatient HUNDBoni, DEYVI KEVIN [id number] [facility] 2022-08-28 00:00:00 2022-08-28 00:00:00 Outpatient EMIL EASLEY MARGO KEVIN [id number] [facility] 2022-08-22 00:00:00 2022-08-22 00:00:00 Outpatient EMIL EASLEY MARGO MARGO [id number] [facility] 2022-08-22 00:00:00 2022-08-22 00:00:00 Outpatient EVIN ROBISON MARGO KEVIN [id number] [facility] 2022-08-20 00:00:00 2022-08-20 00:00:00 Outpatient EVIN ROBISON MARGO KEVIN [id number] [facility] 2022-08-07 00:00:00 2022-08-07 00:00:00 Outpatient JANES MCFADDEN MARGO KEVIN [id number] [facility] 2022-08-06 00:00:00 2022-08-06 00:00:00 Outpatient EVIN ROBISON MARGO KEVIN [id number] [facility] 2022-08-01 00:00:00 2022-08-01 00:00:00 Outpatient KARENCHINA HERNANDEZ MARGO KEVIN [id number] [facility] 2022-07-31 10:45:00 2022-07-31 10:45:00 Outpatient JANES MCFADDEN MARGO KEVIN [id number] [facility] 2022-07-30 00:00:00 2022-07-30 00:00:00 Outpatient JANES MCFADDEN MARGO KEVIN [id number] [facility] 2022-06-28 10:40:00 2022-06-28 10:40:00 Outpatient SINGLETARYMARLONADAN KEVIN [id number] [facility] 2022-06-13 09:40:00 2022-06-13 09:40:00 Outpatient COVID-MODER NA JETT STEPHENS [id number] [facility] 2022-06-12 00:00:00 2022-06-12 00:00:00 Outpatient DEYVI COTE [id number] [facility] 2022-06-12 00:00:00 2022-06-12 00:00:00 Outpatient HUNDLDEYVI MARGO [id number] [facility] 2022-06-06 15:30:00 2022-06-06 15:30:00 Outpatient LABBridger KEVIN MARGO [id number] [facility] 2022-06-06 15:00:00 2022-06-06 15:00:00 Outpatient NICOLE ESCOBAR MARGO [id number] [facility] 2022-06-06 00:00:00 2022-06-06 00:00:00 Outpatient HUNDBoni, DEYVI KEVIN MARGO [id number] [facility] 2022-06-06 00:00:00 2022-06-06 00:00:00 Outpatient CRISTOBAL HERNANDEZ MAGRO KEVIN [id number] [facility] 2022-06-06 00:00:00 2022-06-06 00:00:00 Outpatient ALINA HERNANDEZCLARENCE KEVIN [id number] [facility] 2022-06-05 00:00:00 2022-06-05 00:00:00 Outpatient HUNDBoni, DEYVI KEVIN MARGO [id number] [facility] 2022-05-12 00:00:00 2022-05-12 00:00:00 Letter (Out) Only, Ang Db Test [facility]?[address].840.114 350.1.13.10 4.2.7.2.686 [id number] [facility] 2022-05-10 16:00:00 2022-05-10 16:15:00 Laboratory Only Only, Ang Db Test [facility] 2.840.114 350.1.13.10 4.2.7.2.686 [id number] [facility] 2022-05-10 16:00:00 2022-05-10 16:00:00 Outpatient SUNIL FLOOD [facility] [id number] [facility] 2022-05-10 00:00:00 2022-05-10 00:00:00 Letter (Out) Doctor Unassigned, [place] [facility] 1.2.840.114 350.1.13.10 4.2.7.2.686 [id number] [facility] 2022-05-10 00:00:00 2022-05-10 00:00:00 Orders Only Doctor Unassigned, [place] [facility] 1.2.840.114 350.1.13.10 4.2.7.2.686 [id number] [facility] 2022-05-07 14:30:00 2022-05-07 15:00:00 Office Visit Deyvi Cote 1.2.840.114 350.1.13.13 1.2.7.2.686 [id number] [facility] 2022-05-04 00:00:00 2022-05-04 00:00:00 Outpatient DEYVI COTE [id number] [facility] 2022-05-01 00:00:00 2022-05-01 00:00:00 Outpatient CHINA JONES [id number] [facility] 2022-04-24 13:30:00 2022-04-24 14:00:00 Office Visit Deyvi Cote 1.2.840.114 350.1.13.13 1.2.7.2.686 [id number] [facility] 2022-04-06 13:30:00 2022-04-06 13:40:00 Office Visit Nan Hunter 1.2.840.114 350.1.13.13 1.2.7.2.686 [id number] [facility] 2022-03-16 00:00:00 2022-03-16 00:00:00 Outpatient EVIN ROBISON [id number] [facility] 2022-03-13 10:30:00 2022-03-13 10:45:00 Office Visit China Jones 1.2.840.114 350.1.13.13 1.2.7.2.686 [id number] [facility] 2022-03-07 11:10:00 2022-03-07 11:10:00 Outpatient LAB39 MARGO KEVIN [id number] [facility] 2022-03-07 10:00:00 2022-03-07 10:00:00 Office Visit EVIN ROBISON [facility] 1.2.840.114 350.1.13.13 1.2.7.2.686 [id number] [facility] 2022-02-16 09:55:00 2022-02-16 09:55:00 Outpatient LAB90 MARGO KEVIN [id number] [facility] 2022-02-15 00:00:00 2022-02-15 00:00:00 Outpatient CHINA JONES MARGO KEVIN [id number] [facility] 2022-02-13 14:50:00 2022-02-13 14:50:00 Outpatient COVID-MODER NA VACCWESLEY [id number] [facility] 2022-02-13 13:15:00 2022-02-13 13:15:00 Outpatient JANES MCFADDEN [id number] [facility] 2022-02-13 13:15:00 2022-02-13 13:15:00 Outpatient 1BHAVANI [id number] [facility] 2022-02-13 13:15:00 2022-02-13 13:15:00 Outpatient JANES MCFADDEN [id number] [facility] 2022-02-12 00:00:00 2022-02-12 00:00:00 Outpatient MD MARGO DANIELLE [id number] [facility] 2022-02-05 10:30:00 2022-02-05 10:30:00 Outpatient BHAVANI Licea [id number] [facility] 2022-02-05 10:15:00 2022-02-05 10:15:00 Outpatient JANES MCFADDEN MARGO KEVIN [id number] [facility] 2022-01-19 10:40:00 2022-01-19 10:40:00 Outpatient LAB90 MARGO KEVIN [id number] [facility] 2022-01-08 00:00:00 2022-01-08 00:00:00 Outpatient KARNECHINA HERNANDEZ MARGO KEVIN [id number] [facility] 2022-01-04 10:30:00 2022-01-04 10:30:00 Outpatient MARGO KEVIN [id number] [facility] 2022-01-03 00:00:00 2022-01-03 00:00:00 Outpatient MD MARGO DANIELLE [id number] [facility] 2021-12-22 11:30:00 2021-12-22 11:30:00 Outpatient LAB90 MARGO KEVIN [id number] [facility] 2021-12-19 00:00:00 2021-12-19 00:00:00 Outpatient MD MARGO DANIELLE [id number] [facility] 2021-12-12 10:15:00 2021-12-12 10:30:00 Office Visit KarenChristineChina [facility] 1.2.840.114 350.1.13.13 1.2.7.2.686 [id number] [facility] 2021-10-02 09:45:00 2021-10-02 10:00:00 Office Visit Evin Robison [facility] 1.2.840.114 350.1.13.13 1.2.7.2.686 [id number] [facility] 2021-09-16 09:55:00 2021-09-16 09:55:00 Outpatient LAB47 MARGO KEVIN [id number] [facility] 2021-09-15 15:45:00 2021-09-15 15:45:00 Outpatient LAB39 MARGO KEVIN [id number] [facility] 2021-09-15 15:15:00 2021-09-15 15:30:00 Office Visit DeltarobertMichael [facility] 1.2.840.114 350.1.13.13 1.2.7.2.686 [id number] [facility] 2021-09-15 13:00:00 2021-09-15 13:00:00 Outpatient ALFRED YUNG MARGO KEVIN [id number] [facility] 2021-09-15 00:00:00 2021-09-15 00:00:00 Outpatient ANNA MARKO MARGO KEVIN [id number] [facility] 2021-09-13 10:15:00 2021-09-13 10:30:00 Office Visit Karen China JETT 1.2.840.114 350.1.13.13 1.2.7.2.686 [id number] [facility] 2021-08-31 10:30:00 2021-08-31 11:00:00 Telemedici ne Dimple Harry [facility] 1.2.840.114 350.1.13.13 1.2.7.2.686 [id number] [facility] 2021-08-30 17:15:00 2021-08-30 17:15:00 Outpatient YEX95-OFR MARGO KEVIN [id number] [facility] 2021-08-30 15:35:00 2021-08-30 15:35:00 Outpatient TESTING, PL MARGO KEVIN [id number] [facility] 2021-08-23 00:00:00 2021-08-23 00:00:00 Outpatient JANES MCFADDEN [id number] [facility] 2021-08-14 11:10:00 2021-08-14 11:10:00 Outpatient LAB47 MARGO KEVIN [id number] [facility] 2021-08-07 11:30:00 2021-08-07 11:30:00 Office Visit [facility] 1.2.840.114 350.1.13.13 1.2.7.2.686 [id number] [facility] 2021-08-07 11:00:00 2021-08-07 11:00:00 Outpatient VF2 MARGO KEVIN [id number] [facility] 2021-08-05 00:00:00 2021-08-05 00:00:00 Outpatient EMIL EASLEY [id number] [facility] 2021-07-29 00:00:00 2021-07-29 00:00:00 Outpatient EMIL EASLEY [id number] [facility] 2021-07-21 00:00:00 2021-07-21 00:00:00 Outpatient CHINA JONES [id number] [facility] 2021-07-14 12:35:00 2021-07-14 12:35:00 Outpatient LAB39 MARGO KEVIN [id number] [facility] 2021-07-14 12:00:00 2021-07-14 12:00:00 Outpatient MARGO KEVIN [id number] [facility] 2021-07-14 10:40:00 2021-07-14 10:40:00 Outpatient MARGO KEVIN [id number] [facility] 2021-07-14 00:00:00 2021-07-14 00:00:00 Outpatient EVIN ROBISON [id number] [facility] 2021-07-12 10:05:00 2021-07-12 10:05:00 Outpatient LAB47 MARGO KEVIN [id number] [facility] 2021-07-12 09:00:00 2021-07-12 09:15:00 Office Visit China Jones 1.2.840.114 350.1.13.13 1.2.7.2.686 [id number] [facility] 2021-06-29 10:29:43 2021-06-29 10:49:43 Office Visit Elsy Singletary [facility] 1.2.840.114 350.1.13.13 1.2.7.2.686 [id number] [facility] 2021-06-15 00:00:00 2021-06-15 00:00:00 Outpatient CHINA JONES MARGO KEVIN [id number] [facility] 2021-04-27 14:20:00 2021-04-27 14:20:00 Outpatient COVID-MODER NA BOOSTER, CLEAR MARGO KEVIN [id number] Margo Vasquezamita 2021-04-25 09:00:00 2021-04-25 09:00:00 Outpatient LAB90 MARGO KEVIN [id number] Margo Vasquezamita 2021-04-25 08:00:00 2021-04-25 08:00:00 Outpatient ENRIQUETA EVINShabana [facility] [id number] [facility] 2021-03-29 00:00:00 2021-03-29 00:00:00 Outpatient BOGDAN JANES [facility]EV[facility] [id number] [facility] 2021-03-15 10:45:00 2021-03-15 10:45:00 Outpatient KARENCHINA HERNANDEZ MARGO KEVIN [id number] Margo Vasquezamita 2021-03-07 09:45:00 2021-03-07 09:45:00 Outpatient EVIN ROBISON MARGO KEVIN [id number] Margo Seamita Results Test Description Test Time Test Comments Results Result Co mments Source Margo Ambriz - External Notes Date/Time Note Provider Source 2023-05-10 09:14:29 7U6LTG39sybk4TPAMMXd wIfvd2fF/A8/sR 8X74SrdWnUUB/uz+Qne246bcuApoyf0933 -09-15T09:14:29 Kat Ang is a 83 year old female in office today for follow up and to have the left side of neck/throat checked due to swelling the past 3 weeks. 05204-1Daslp XokeXI1546-10-06L57:15:18Nurse NoteTXT1.2.840.048193.1.13.131.2.7 .2.528695|[id number] for patient xwth18432-5Hjbjc AbheHY693519016Fmp [id number] ZGM6868-51-41B06:15:181.2.840.1143 50.1.72.3.15|1.2.840.107319.1.13.1 31.2.7.2.727879_[id number] Libbyshabana Campbell [place] 2023-05-06 14:36:35 5QWXd81FBJ1ZHva7Ir56 b6fgn4nOtX4JjG 2sPYO1XDmWqRDEfyURVx4kxH2L/OGe67292022T14:36:35 Chief Complaint Patient presents with Mole Skin Cancer Screening Constance Gale 41325-2Jrumu PmptFO1452-25-24H04:38:40Nurse NoteTXT1.2.840.298758.1.13.131.2.7 .2.181018|403144705IVCwfmkypwn for patient ycwn38013-1Indpc NoteLN[id number] III4505-93-60Z01:38:401.2.840.1143 50.1.72.3.15|1.2.840.878033.1.13.1 31.2.7.2.727879_[id number] [place] 2023-04-18 09:17:12 ws2NGJybHHhZzu3yA9m2 6d9BnQv0nLw8vh wTu+AJTvmQUvaCiQdYYZ+349khj/O18707T09:17:12 Patient is here for physical, VSS, no concerns voiced at this time, medications reconciled. 09027-7Yiogy PbqpAT6636-70-48M06:18:24Nurse NoteTXT1.2.840.951768.1.13.131.2.7 .2.413286|557864475SITvmagkzhf for patient jjcw77120-1Mqgcz AwaeAO643486197Gpgqj [facility] [facility] [id number] ADV0632-95-44Z66:18:241.2.840.1143 50.1.72.3.15|1.2.840.313784.1.13.1 31.2.7.2.727879_[id number] Kandi Coffey [place]"
--- NOTE | 2023-09-06 20:26 | RAD REPORT ---
EXAM DESCRIPTION: RAD - Hand Left 3 View - 09/06/2023 8:19 pm CLINICAL HISTORY: dislocation 3rd finger COMPARISON: <Comparisons> FINDINGS: Partial dislocation is seen at the level of the third MCP joint. The bones are demineraliz ed. No fracture seen.
--- NOTE | 2023-09-06 23:19 | EDPHYS ---
Physician Documentation [facility] Name: Nelli Horvath Age: 83 yrs Sex: Female : 1940 Arrival Date: 09/06/2023 Time: 18:56 Bed 7 Private MD: Tavo Canales ED Physician Armani Rosado HPI: 09/06 20:00 This 83 yrs old Female presents to ER via Ambulatory with complaints of Finger Injury. cp 20:00 The patient or guardian reports dislocation of left middle finger. cp 20:00 Context: The problem was sustained at home, patient reports finger dislocated while cp cooking. she was mixing meatloaf when finger dislocated. Patient referred to ED from urgent care for dislocated left middle finger that was nontraumatic. Patient reports urgent care was unable to relocate finger after multiple attempts. Historical: - Allergies: 19:36 No Known Allergies; km8 - PMHx: 19:36 Hypothyroidism; Hypertensive disorder; Hypercholesterolemia; km8 - PSHx: 19:36 nasal surgery; km8 - Immunization history:: Client reports receiving the 2nd dose of the Covid vaccine, Flu vaccine is up to date. - Social history:: Smoking status: Patient denies any tobacco usage or history of. Patient uses alcohol, but reports only rare drinking. Patient/guardian denies using street drugs. ROS: 20:10 MS/extremity: Positive for decreased range of motion, pain, swelling, tenderness, of cp the MCP joint of left middle finger, deformity, 20:10 Constitutional: Negative for fever, cp 20:10 Skin: Negative for cellulitis, rash, 20:10 Neuro: Negative for altered mental status, headache, numbness, 20:10 All other systems are negative, Exam: 20:15 Constitutional: The patient appears in no acute distress, alert, awake, well developed, cp well nourished, uncomfortable, 20:15 Head/Face: Normocephalic, atraumatic. cp 20:15 Cardiovascular: Rate: normal, Pulses: Pulses are 2+ in left radial artery. 20:15 Respiratory: the patient does not display signs of respiratory distress, Respirations: normal, no use of accessory muscles, no retractions, labored breathing, is not present, that is mild, Breath sounds: are clear throughout, no decreased breath sounds, 20:15 Musculoskeletal/extremity: Extremities: grossly normal except: noted in the MCP joint of left middle finger: decreased ROM, deformity, pain, swelling, tenderness, ROM: limited active range of motion, in the MCP joint of left middle finger, Perfusion: the extremity is normally perfused throughout, the left middle finger Sensation intact. Vital Signs: 19:33 BP 163 / 83; Pulse 78; Resp 16; Temp 98.6(IR); Pulse Ox 95% on R/A; Weight 76.66 kg [facility] (R); Height 5 ft. 6 in. (R); Pain 4/10; 23:54 BP 149 / 78; Pulse 67; Resp 16; Pulse Ox 96% on R/A; nw1 19:33 Body Mass Index 27.28 (76.66 kg, 167.64 cm) [facility] 19:33 Pain Scale: Adult [facility] Brady Coma Score: 21:01 Eye Response: spontaneous(4). Motor Response: obeys commands(6). Verbal Response: nw1 oriented(5). Total: 15. Procedures: 23:25 Reduction: of the MCP joint of left middle finger, using manipulation, Patient cp tolerated well. Post reduction film - improved alignment, but not not completely reduced. hand splinted in orthoglass sugar tong type. MDM: 19:42 Patient medically screened. cp 23:17 Data reviewed: vital signs, nurses notes, radiologic studies, plain films. cp 23:17 Differential diagnosis: dislocation, closed fracture, contusion. I considered the cp following discharge prescriptions or medication management in the emergency department Medications were administered in the Emergency Department. See MAR. Care significantly affected by the following chronic conditions: Hypertension. Counseling: I had a detailed discussion with the patient and/or guardian regarding the historical points, exam findings, and any diagnostic results supporting the discharge/admit diagnosis, radiology results, the need for outpatient follow up, for definitive care, a hand specialist, to return to the emergency department if symptoms worsen or persist or if there are any questions or concerns that arise at home. Response to treatment: the patient's symptoms have mildly improved after treatment, and as a result, I will discharge patient. 23:18 ED course: Patient instructed on need for hand surgery f/u. cp 09/06 19:43 Order name: XRAY Hand LEFT 3 View; Complete Time: 20:42 [facility] 09/06 22:16 Order name: XRAY Hand LEFT 3 View cp 09/06 22:57 Order name: Splint: ulletha gutter hand splint; Complete Time: 23:45 cp Administered Medications: 20:53 Drug: Lidocaine Infiltration (2 %) 10 ml 5 ml Infiltration once; to bedside Volume: 5 nw1 ml; Route: Infiltration; 20:53 Drug: Bupivacaine Infiltration (0.5 %) 10 ml 10 ml Infiltration once Volume: 10 ml; nw1 Route: Infiltration; 22:22 Drug: Ibuprofen PO 800 mg PO once Route: PO; nw1 22:22 Drug: Acetaminophen PO 650 mg PO once Route: PO; nw1 Disposition Summary: 09/06/23 23:18 Discharge Ordered Notes: Location: Home cp Problem: new cp Symptoms: have improved cp Condition: Stable cp Diagnosis - Dislocation of metacarpophalangeal joint of left middle finger, initial encounter cp Followup: cp - With: Private Physician - When: 2 - 3 days - Reason: Recheck today's complaints Discharge Instructions: - Discharge Summary Sheet cp - Finger or Thumb Dislocation cp Forms: - Medication Reconciliation Form cp - Thank You Letter cp - Antibiotic Education cp - Prescription Opioid Use cp - Patient Portal Instructions cp - Leadership Thank You Letter cp Prescriptions: - Ibuprofen 800 mg Oral Tablet - take 1 tablet ORAL route every 8 hours As needed take with food; 30 tablet; cp Refills: 0, Product Selection Permitted Addendum: 09/09/2023 20:26 I was immediately available for consultation during this patient's visit. I did not e c2 personally see the patient or discuss the patient with the NILES. . Signatures: Dispatcher [employer] EDND Cl Hernandez PA PA cp Armani Rosado MD MD 2 Jahaira Wilson RN RN km8 Carissa Mcclellan RN RN nw1 Corrections: (The following items were deleted from the chart) 09/06 19:38 19:36 PSHx: None; km8 km8 09/07 23:44 23:42 MS/extremity: Positive for decreased range of motion, pain, swelling, tenderness, cp of the MCP joint of left middle finger, deformity, cp 23:51 23:48 Reduction: of the MCP joint of left middle finger, using manipulation, Patient cp tolerated well. Post reduction film - improved alignment, but not not completely reduced. hand splinted in orthoglass sugar tong type. cp
--- NOTE | 2023-09-06 23:19 | ER ---
Nurse's Notes [facility] Name: Nelli Horvath Age: 83 yrs Sex: Female : 1940 Arrival Date: 09/06/2023 Time: 18:56 Bed 7 Private MD: Tavo Canales Diagnosis: Dislocation of metacarpophalangeal joint of left middle finger, initial encounter Presentation: 09/06 19:33 Chief complaint: Patient states: she was mixing meatloaf around 1430 today and her 3rd km8 finger on her left hand got out of joint; pt went to an urgent care today and they were unable to get the finger back in place; they found no fractures, just displaced at the bottom joint;. Coronavirus screen: Client denies travel out of the [place] in the last 14 days. Ebola Screen: No symptoms or risks identified at this time. Initial Sepsis Screen: Does the patient meet any 2 criteria? No. Patient's initial sepsis screen is negative. Does the patient have a suspected source of infection? No. Patient's initial sepsis screen is negative. Risk Assessment: Do you want to hurt yourself or someone else? Patient reports no desire to harm self or others. Onset of symptoms was September 06, 2023 at 14:30. 19:33 Method Of Arrival: Ambulatory km8 19:33 Acuity: FIDE 3 km8 Triage Assessment: 19:36 General: Appears in no apparent distress. comfortable, Behavior is calm, cooperative, km8 appropriate for age. Pain: Complains of pain in dorsal aspect of proximal phalanx of left middle finger Pain currently is 4 out of 10 on a pain scale. EENT: No signs and/or symptoms were reported regarding the EENT system. Neuro: Level of Consciousness is awake, alert, obeys commands, Oriented to person, place, time, situation. Cardiovascular: Denies chest pain, shortness of breath, Capillary refill < 3 seconds Patient's skin is warm and dry. Respiratory: Airway is patent Respiratory effort is even, unlabored, Respiratory pattern is regular, symmetrical. GI: No signs and/or symptoms were reported involving the gastrointestinal system. : No signs and/or symptoms were reported regarding the genitourinary system. Derm: Skin is intact, is healthy with good turgor, Skin is dry, Skin is normal, Skin temperature is warm. Musculoskeletal: Circulation, motion, and sensation intact. Range of motion: limited in MCP of left middle finger Reports swelling to 3rd left finger. Injury Description: unknown. Historical: - Allergies: 19:36 No Known Allergies; km8 - PMHx: 19:36 Hypothyroidism; Hypertensive disorder; Hypercholesterolemia; km8 - PSHx: 19:36 nasal surgery; km8 - Immunization history:: Client reports receiving the 2nd dose of the Covid vaccine, Flu vaccine is up to date. - Social history:: Smoking status: Patient denies any tobacco usage or history of. Patient uses alcohol, but reports only rare drinking. Patient/guardian denies using street drugs. Screenin:01 [facility] ED Fall Risk Assessment (Adult) History of falling in the last 3 months, nw1 including since admission No falls in past 3 months (0 pts) Confusion or Disorientation No (0 pts) Intoxicated or Sedated No (0 pts) Impaired Gait No (0 pts) Mobility Assist Device Used No (0 pt). Abuse screen: Denies threats or abuse. Denies injuries from another. Nutritional screening: No deficits noted. Nutritional screening: No deficits noted. Tuberculosis screening: No symptoms or risk factors identified. Assessment: 20:54 Reassessment: Medications at bedside for physician. nw1 20:57 General: Appears in no apparent distress. comfortable, Behavior is calm, cooperative, nw1 appropriate for age. Pain: Complains of pain in MCP of left middle finger and dorsal aspect of proximal phalanx of left middle finger. Neuro: Level of Consciousness is awake, alert, obeys commands, Oriented to person, place, time. Cardiovascular: No deficits noted. Denies chest pain, diaphoresis. Respiratory: No deficits noted. Airway is patent Trachea midline Respiratory effort is even, unlabored, Respiratory pattern is regular, symmetrical. GI: No deficits noted. No signs and/or symptoms were reported involving the gastrointestinal system. Derm: Skin is intact, Bruising that is brown. Musculoskeletal: Reports pain in MCP of left middle finger and dorsal aspect of proximal phalanx of left middle finger. 23:54 Reassessment: Ortho-glass reverse gutter splint placed per MD orders. Pt verbalized nw1 discharge instructions and splint care instructions at this time. Vital Signs: 19:33 BP 163 / 83; Pulse 78; Resp 16; Temp 98.6(IR); Pulse Ox 95% on R/A; Weight 76.66 kg km8 (R); Height 5 ft. 6 in. (R); Pain 4/10; 23:54 BP 149 / 78; Pulse 67; Resp 16; Pulse Ox 96% on R/A; nw1 19:33 Body Mass Index 27.28 (76.66 kg, 167.64 cm) km8 19:33 Pain Scale: Adult km8 Brady Coma Score: 21:01 Eye Response: spontaneous(4). Motor Response: obeys commands(6). Verbal Response: nw1 oriented(5). Total: 15. ED Course: 19:00 Patient arrived in ED. rg4 19:00 Tavo Canales DO is Private Physician. rg4 19:05 Armani Rosado MD is Attending Physician. ec2 19:36 Triage completed. km8 19:36 Arm band placed on right wrist. km8 19:42 Cl Hernandez PA is PHCP. cp 19:42 Armani Rosado MD is Attending Physician. cp 20:21 XRAY Hand LEFT 3 View In Process Unspecified. EDMS 20:44 Carissa Mcclellan, RN is Primary Nurse. nw1 21:01 Patient has correct armband on for positive identification. Placed in gown. Bed in low nw1 position. Call light in reach. Side rails up X2. Adult w/ patient. Provided Education on: POC. Pulse ox on. NIBP on. Door closed. Warm blanket given. 21:01 No provider procedures requiring assistance completed. nw1 22:45 XRAY Hand LEFT 3 View In Process Unspecified. EDMS 23:54 Patient did not have IV access during this emergency room visit. nw1 Administered Medications: 20:53 Drug: Lidocaine Infiltration (2 %) 10 ml 5 ml Infiltration once; to bedside Volume: 5 nw1 ml; Route: Infiltration; 20:53 Drug: Bupivacaine Infiltration (0.5 %) 10 ml 10 ml Infiltration once Volume: 10 ml; nw1 Route: Infiltration; 22:22 Drug: Ibuprofen PO 800 mg PO once Route: PO; nw1 22:22 Drug: Acetaminophen PO 650 mg PO once Route: PO; nw1 Medication: 21:01 VIS not applicable for this client. nw1 Outcome: 23:18 Discharge ordered by . cp 23:54 Discharged to home ambulatory, nw1 23:54 Condition: stable 23:54 Discharge instructions given to patient, Instructed on discharge instructions, follow up and referral plans. medication usage, Demonstrated understanding of instructions, follow-up care, medications, Prescriptions given X 1, 23:59 Patient left the ED. nw1 Signatures: Dispatcher [employer] EDMS Cl Hernandez PA PA cp Garcia, Rubi rg4 Armani Rosado MD MD ec2 Jahaira Wilson RN RN km8 Carissa Mcclellan RN RN nw1 Corrections: (The following items were deleted from the chart) 19:38 19:36 PSHx: None; km8 km8
[2023-09-07 03:47] VITALS: TEMP 98.6
[2023-09-07 03:58] VITALS: BP 149/78; O2SAT 96
--- NOTE | 2023-09-07 20:22 | RAD REPORT ---
EXAM DESCRIPTION: Hand Left 3 View CLINICAL HISTORY: 83-year-old female status post reduction. TECHNIQUE: Three views LEFT hand were obtained in AP, lateral and oblique projections COMPARISON: None. FINDINGS: Persistent dislocation/subluxation at the level of the third digit metacarpophalangeal vale nt. There is a suspected fracture of the proximal phalanx and impaction on the metacarpal head. Soft tissue swelling at the level of the metacarpal phalangeal joint on the lateral view. Degenerative change with narrowing of the distal interphalangeal joint spaces and basilar joint sugge sting osteoarthritis. IMPRESSION: Persistent dislocation/subluxation at the level of the third digit metacarpophalangeal j oint. There is a suspected fracture of the proximal phalanx and impaction on the metacarpal head. Electronically signed by: Luna Altamirano MD 09/07/2023 12:45 AM ASSISTANT MEDIA PLANNER Due to temporary technical issues with the PACS/Fluency reporting system, reports are being signed by the in house radiologists without review as a courtesy to insure prompt reporting. The interpreting radiologist is fully responsible for the content of the report.
== END ==
LOC: ER 18:56
PROC: 0RSVXZZ Reposition Left Metacarpophalangeal Joint, External Approach (ICD-10-PCS; principal; 2023-09-06)
DX: S63.263A Dislocation of metacarpophalangeal joint of left middle finger, initial encounter (principal)
CPT/HCPCS: 73130 ×2; 99283; 26700; J2001